=== PATIENT | female | born 1990 | race Caucasian/White ===

== ENCOUNTER 2017-09-15 22:31 | Emergency (ER) | payer OTHER ==
[2017-09-15 23:53] VITALS: BP 108/72; PULSE 82; TEMP 98.1; BMI 27.3
[2017-09-16 00:12] LABS: BASO % 1.3 % (0-2.0); EOS % 3.9 % (0-4.5); HEMATOCRIT 35.8 % (32.4-45.2); HEMOGLOBIN 11.6 GM/dL (10.7-15.3); LYMPH % 38.2 % (8-40); MCH 24.2 pg (25.7-33.7); MCHC 32.5 g/dl (32.0-36.0); MEAN CELL VOLUME 74.4 fl (80-96); MEAN PLT VOLUME 7.6 fl (7.5-11.1); MONO % 8.3 % (3.8-10.2); NEUT % 48.3 % (42.8-82.8); PLATELET COUNT 356 K/MM3 (134-434); RBC 4.81 M/mm3 (3.60-5.2); RDW 16.2 % (11.6-15.6); WHITE BLOOD COUNT 7.8 K/mm3 (4.0-10.0)
--- NOTE | 2017-09-16 01:20 | PDOC ---
History of Present Illness - General History Source: Patient Exam Limitations: No Limitations - History of Present Illness Initial Comments: 09/16/17 01:26 The patient is a 27 year old female, , 4 with past medical history of asthma and depression presents to the emergency department with left suprapubic pain. The patient reports she had vaginal bleeding since this morning with dark colored clots. The patient reports she went to her friends house a little later she started to have pain. The patient states she isnt on any care. Denies any dysuria, hematuria, frequency or urgency to urinate. Denies any diarrhea or constipation. Denies any fever, chills, nausea or vomiting. Denies chest pain, sob or wheezing. Allergies: anesthesia Social history: None reported <Tameka Queen - Last Filed: 09/16/17 01:37> <Arabella Paiz - Last Filed: 09/16/17 02:15> - General Chief Complaint: Pain Stated Complaint: VAGINAL BLEED Time Seen by Provider: 09/15/17 23:36 Past History <Tameka Queen - Last Filed: 09/16/17 01:37> - Past Medical History Anemia: No Asthma: Yes Cancer: No Cardiac Disorders: No CVA: No COPD: No CHF: No Dementia: No Diabetes: No GI Disorders: No Disorders: No HTN: No Hypercholesterolemia: No Kidney Stones: No Liver Disease: No Psychiatric Problems: Yes (ANXIETY, DEPRESSION, PANIC ATTACKS.) Seizures: No Thyroid Disease: No - Surgical History Abdominal Surgery: Yes - Reproductive History (#): 4 Para: 3 PID: No Therapeutic (s) & number: Yes Spontaneous : 1 - Immunization History Immunization Up to Date: No - Suicide/Smoking/Psychosocial Hx Smoking Status: No Smoking History: Unknown if ever smoked Have you smoked in the past 12 months: No Number of Cigarettes Smoked Daily: 5 Hx Alcohol Use: No Drug/Substance Use Hx: No Substance Use Type: None Hx Substance Use Treatment: Yes (marijuana) <Arabella Paiz - Last Filed: 09/16/17 02:15> - Past Medical History Allergies/Adverse Reactions: Allergies Allergy/AdvReac Type Severity Reaction Status Date / Time "anesthesia" Allergy Uncoded 09/15/17 23:46 Home Medications: Ambulatory Orders Albuterol Sulfate Inhaler - [Ventolin HFA Inhaler -] 1 puff PO PRN 11/25/15 Abd/GI Specific PMHX - Complaint Specific PMHX Hepatitis: No Pancreatitis: No <Arabella Paiz - Last Filed: 09/16/17 02:15> Review of Systems - Review of Systems Able to Perform ROS?: Yes Comments:: 09/16/17 01:26 CONSTITUTIONAL: Absent: fever, no chills, no fatigue EYES: Absent: visual changes ENT: Absent: ear pain, no sore throat CARDIOVASCULAR: Absent: chest pain, no palpitations RESPIRATORY: Absent: cough, no SOB GI: Absent: abdominal pain, no nausea, no vomiting, no constipation, no diarrhea GENITOURINARY: (+) left ovarian pain with vaginal bleeding Absent: dysuria, no frequency, no hematuria MUSKULOSKELETAL: Absent: back pain, no arthralgia, no myalgia SKIN: Absent: rash NEURO: Absent: headache <Tameka Queen - Last Filed: 09/16/17 01:37> *Physical Exam - Vital Signs Last Vital Signs Temp Pulse Resp BP Pulse Ox 98.1 F 82 18 108/72 98 09/15/17 23:46 09/15/17 23:46 09/15/17 23:46 09/15/17 23:46 09/15/17 23:46 - Physical Exam Comments: 09/16/17 01:26 GENERAL: Well-appearing, well-nourished. No apparent distress. HEENT: Normocephalic, atraumatic. PERRL, EOM intact. CARDIOVASCULAR: Normal S1, S2. Regular rate and rhythm. PULMONARY: Clear to auscultation bilaterally. ABDOMEN: Left adnexal pain with vaginal bleeding. Left sided pelvic pain. Protuberant belly. Soft, Pelvic exam: no polyps. Os closed no vesicules. No blood in the vaginal vault. No abcess Having her menstrual cycle EXTREMITIES: Normal ROM in all four extremities. No gross deformities. SKIN: Warm, dry. No rash NEUROLOGICAL: No focal neurological deficits. <Tameka Queen - Last Filed: 09/16/17 01:37> - Vital Signs Last Vital Signs Temp Pulse Resp BP Pulse Ox 98.1 F 82 18 108/72 98 09/15/17 23:46 09/15/17 23:46 09/15/17 23:46 09/15/17 23:46 09/15/17 23:46 <Arabella Paiz - Last Filed: 09/16/17 02:15> Moderate Sedation - Procedure Monitoring Vital Signs: Vital Signs Temp Pulse Resp BP Pulse Ox 98.1 F 82 18 108/72 98 09/15/17 23:46 09/15/17 23:46 09/15/17 23:46 09/15/17 23:46 09/15/17 23:46 <Tameka Queen - Last Filed: 09/16/17 01:37> - Procedure Monitoring Vital Signs: Vital Signs Temp Pulse Resp BP Pulse Ox 98.1 F 82 18 108/72 98 09/15/17 23:46 09/15/17 23:46 09/15/17 23:46 09/15/17 23:46 09/15/17 23:46 <Arabella Paiz - Last Filed: 09/16/17 02:15> ED Treatment Course - LABORATORY CBC & Chemistry Diagram: 09/15/17 23:48 - ADDITIONAL ORDERS Additional order review: Laboratory Results 09/15/17 23:48 Beta HCG, Quant < 1.0 09/15/17 23:48 RBC 4.81 MCV 74.4 L MCHC 32.5 RDW 16.2 H MPV 7.6 Neutrophils % 48.3 Lymphocytes % 38.2 Monocytes % 8.3 Eosinophils % 3.9 D Basophils % 1.3 D <Tameka Queen - Last Filed: 09/16/17 01:37> - LABORATORY CBC & Chemistry Diagram: 09/15/17 23:48 - ADDITIONAL ORDERS Additional order review: Laboratory Results 09/15/17 23:48 Beta HCG, Quant < 1.0 09/15/17 23:48 RBC 4.81 MCV 74.4 L MCHC 32.5 RDW 16.2 H MPV 7.6 Neutrophils % 48.3 Lymphocytes % 38.2 Monocytes % 8.3 Eosinophils % 3.9 D Basophils % 1.3 D <Arabella Paiz - Last Filed: 09/16/17 02:15> *DC/Admit/Observation/Transfer - Attestations Scribe Attestion: 09/16/17 01:27 Documentation prepared by Tameka Queen, acting as medical researcher for Arabella Paiz MD. <Tameka Queen - Last Filed: 09/16/17 01:37> <Arabella Paiz - Last Filed: 09/16/17 02:15> Diagnosis at time of Disposition: Vaginal bleeding, Vaginal discharge - Discharge Dispostion Disposition: HOME Condition at time of disposition: Stable - Patient Instructions Printed Discharge Instructions: DI for Pelvic Pain Additional Instructions: please follow up with your elevator mechanic apprentice
== END 2017-09-16 02:21 | disposition home or self-care (01) ==
LOC: JER 22:31
DX: N93.8 Other specified abnormal uterine and vaginal bleeding (principal)
CPT/HCPCS: 36415; 84702; 85025; 86850; 86900; 86901; 87389; 99282-25

== ENCOUNTER 2017-12-16 21:39 | Observation (INO) | payer OTHER ==
--- NOTE | 2017-12-16 21:50 | PDOC ---
Rapid Medical Evaluation Time Seen by Provider: 12/16/17 21:47 Medical Evaluation: Allergies Allergy/AdvReac Type Severity Reaction Status Date / Time "anesthesia" Allergy Uncoded 09/15/17 23:46 12/16/17 21:48 I have performed a brief in-person evaluation of this patient. The patient presents with a chief complaint of: Lower abdominal pain. dx with ovarian cyts at OSH 12/15 Pertinent physical exam findings: Tachycardic. left pelvic pain I have ordered the following: labs, urine The patient will proceed to the ED for further evaluation. Discharge Disposition - Diagnosis Pelvic pain - Referrals - Patient Instructions - Post Discharge Activity
[2017-12-16 22:24] LABS: BASO % 0.5 % (0-2.0); EOS % 1.1 % (0-4.5); HEMATOCRIT 35.6 % (32.4-45.2); LYMPH % 14.4 % (8-40); MCH 25.5 pg (25.7-33.7); MCHC 33.8 g/dl (32.0-36.0); MEAN CELL VOLUME 75.6 fl (80-96); MEAN PLT VOLUME 7.5 fl (7.5-11.1); MONO % 5.4 % (3.8-10.2); NEUT % 78.6 % (42.8-82.8); PLATELET COUNT 335 K/MM3 (134-434); RBC 4.71 M/mm3 (3.60-5.2); RDW 16.1 % (11.6-15.6); WHITE BLOOD COUNT 14.7 K/mm3 (4.0-10.0)
[2017-12-16 23:05] LABS: ALBUMIN 3.9 g/dl (3.4-5.0); ALK PHOS 76 U/L (45-117); ANION GAP 10 MMOL/L (8-16); BILIRUBIN,TOTAL 0.6 mg/dL (0.2-1.0); BLOOD UREA NITROGEN 11 mg/dL (7-18); CALCIUM 9.5 mg/dL (8.5-10.1); CHLORIDE 103 mmol/L (98-107); CO2 24 mmol/L (21-32); CREATININE 0.6 mg/dL (0.55-1.02); GLUCOSE,RANDOM 107 mg/dL (74-106); POTASSIUM 3.7 mmol/L (3.5-5.1); SGOT/AST 19 U/L (15-37); SGPT/ALT 19 U/L (12-78); SODIUM 137 mmol/L (136-145); TOT PROT 7.8 g/dl (6.4-8.2)
[2017-12-16] MEDS ORDERED: ONDANSETRON 4 MG/2 ML VIAL IVPUSH ONE (23:11)
[2017-12-16] MEDS ORDERED: FAMOTIDINE 20 MG/50 ML IVPB 20 MG/50 ML MG IVPB ONE ×2 (23:11→23:14)
[2017-12-16] MEDS ORDERED: SODIUM CHLORIDE 0.9% 1000 ML INFUS.BAG IV ONE (23:11)
[2017-12-16] MEDS ORDERED: ONDANSETRON 4 MG/2 ML VIAL ONE (23:14)
--- NOTE | 2017-12-16 23:26 | PDOC ---
Attending Attestation - [facility] HPI: 12/17/17 00:32 Patient is a 27 year old female with a significant past medical history of asthma and depression, bipolar schizophrenia, who presents to the ED with complaints of diffuse abdominal pain that began x1 month ago. Patient reports experiencing diffuse abdominal pain that she states has gradually increasing in intensity over time prompting her to come into the ED for further evaluation. When asked to identify the location of her abdominal pain, she reports it to be located in the Right upper and lower She reports experiencing associated symptoms of x1 episode of watery diarrhea, nausea, fever and chills. Patient reports going to [facility] earlier this week and was diagnosed with a right follicle on her ovary. Denies chest pain, sob. Denies nausea, vomiting. Denies coughing, vomiting. Denies contact with sick individuals, out of state travelling. Denies Allergies: Haldol, Anesthesia. Social history: Current smoker. No alcohol. No illicit drugs. Surgical history: None PMD: None - Physicial Exam PE: 12/17/17 02:10 GENERAL: Well-appearing, well-nourished. No apparent distress. HEENT: Normocephalic, atraumatic. PERRL, EOM intact. CARDIOVASCULAR: Normal S1, S2. Regular rate and rhythm. PULMONARY: Clear to auscultation bilaterally. ABDOMEN: Soft, non-distended, non-tender. EXTREMITIES: Normal ROM in all four extremities. No gross deformities. SKIN: Warm, dry. No rash NEUROLOGICAL: No focal neurological deficits. <Jose Pink - Last Filed: 12/17/17 02:10> - Resident Resident Name: Tahir Portillo - ED Attending Attestation I have performed the following: I have examined & evaluated the patient, The case was reviewed & discussed with the resident, I agree w/resident's findings & plan, Exceptions are as noted - Medical Decision Making 12/17/17 03:02 Pt treated and released <Ronald Nichols - Last Filed: 12/17/17 03:02>
--- NOTE | 2017-12-16 23:40 | PDOC ---
History of Present Illness - General Chief Complaint: Pain Stated Complaint: ABDOMINAL PAIN Time Seen by Provider: 12/16/17 21:47 History Source: Patient Exam Limitations: No Limitations - History of Present Illness Initial Comments: 12/16/17 23:35 The patient is a 27F with a PMH of bipolar schizophrenia who presents to the ER with abdominal pain. The patient describes constant, sharp, diffuse abdominal pain x 1 month that is associated with diarrhea which started today and mild nausea which also started today. She denies any vaginal bleeding or discharge, hematuria, hematochezia, and melena. She states that she's never had pain like this in the past. She denies sick contacts and recent abx use. Past History - Past Medical History Allergies/Adverse Reactions: Allergies Allergy/AdvReac Type Severity Reaction Status Date / Time haloperidol [From Haldol] Allergy Verified 12/16/17 21:50 "anesthesia" Allergy Uncoded 09/15/17 23:46 Home Medications: Ambulatory Orders Clozapine 100 mg PO BID 12/16/17 Glycopyrrolate [Robinul Forte -] 2 mg PO DAILY 12/16/17 Doxycycline Hyclate 100 mg PO BID #13 tablet 12/17/17 Anemia: No Asthma: Yes Cancer: No Cardiac Disorders: No CVA: No COPD: No CHF: No Dementia: No Diabetes: No GI Disorders: No Disorders: No HTN: No Hypercholesterolemia: No Kidney Stones: No Liver Disease: No Psychiatric Problems: Yes (SCHIZOPHRENIA,ANXIETY, DEPRESSION, PANIC ATTACKS.) Seizures: No Thyroid Disease: No - Surgical History Abdominal Surgery: Yes - Reproductive History (#): 4 Para: 3 PID: No Therapeutic (s) & number: Yes Spontaneous : 1 - Immunization History Immunization Up to Date: No - Suicide/Smoking/Psychosocial Hx Smoking Status: No Smoking History: Current every day smoker Have you smoked in the past 12 months: No Number of Cigarettes Smoked Daily: 1 Information on smoking cessation initiated: Yes 'Breaking Loose' booklet given: 12/16/17 Hx Alcohol Use: No Drug/Substance Use Hx: No Substance Use Type: None Hx Substance Use Treatment: Yes (marijuana) Review of Systems - Review of Systems Able to Perform ROS?: Yes Comments:: 12/16/17 23:40 GENERAL/CONSTITUTIONAL: Positive for fever and chills. No weakness. HEAD, EYES, EARS, NOSE AND THROAT: No change in vision. No ear pain or discharge. No sore throat. CARDIOVASCULAR: No chest pain, palpitations, or lightheadedness. RESPIRATORY: No cough, wheezing, shortness of breath, or hemoptysis. GASTROINTESTINAL: Positive for mild nausea, diarrhea, and abdominal pain. No vomiting or constipation. GENITOURINARY: No dysuria, frequency, hematuria, or change in urination. MUSCULOSKELETAL: No joint or muscle swelling or pain. No neck or back pain. SKIN: No rash or lesions. NEUROLOGIC: No headache, numbness, tingling, weakness, loss of consciousness, or change in strength/sensation. ENDOCRINE: No increased thirst. No abnormal weight change. HEMATOLOGIC/LYMPHATIC: No anemia, easy bleeding, or history of blood clots. ALLERGIC/IMMUNOLOGIC: No hives or skin allergy. Is the patient limited Bengali proficient: No *Physical Exam - Vital Signs Last Vital Signs Temp Pulse Resp BP Pulse Ox 97.7 F 144 H 18 115/66 99 12/16/17 21:46 12/16/17 21:46 12/16/17 21:46 12/16/17 21:46 12/16/17 21:46 - Physical Exam Comments: 12/16/17 23:42 GENERAL: Well developed, well nourished. Awake and alert. No acute distress. HEENT: Normocephalic, atraumatic. Hearing grossly normal. Moist mucous membranes. PERRLA, EOMI. No conjunctival pallor. Sclera are non-icteric. NECK: Supple. Full ROM. No JVD. CARDIOVASCULAR: Regular rate and rhythm. No murmurs, rubs, or gallops. Distal pulses are 2+ and symmetric. PULMONARY: No evidence of respiratory distress. Lungs clear to auscultation bilaterally. No wheezing, rales or rhonchi. ABDOMINAL: Soft. Mild tenderness to deep palpation diffusely throughout abdomen. Non-distended. No rebound or guarding. GENITOURINARY: No CVA tenderness bilaterally. PELVIC: Normal external genitalia. White discharge noted in vaginal canal. CMT noted. R adnexal tenderness. MUSCULOSKELETAL: Normal range of motion at all joints. No bony deformities or tenderness. EXTREMITIES: No cyanosis. No clubbing. No edema. No calf tenderness or swelling. SKIN: Warm and dry. Normal capillary refill. No rashes. No jaundice. NEUROLOGICAL: Alert, awake, appropriate. Cranial nerves 2-12 intact. Normal speech. Gait is normal without ataxia. PSYCHIATRIC: Cooperative. Good eye contact. Appropriate mood and affect. ED Treatment Course - LABORATORY CBC & Chemistry Diagram: 12/16/17 22:11 12/16/17 22:11 - ADDITIONAL ORDERS Additional order review: Laboratory Results 12/16/17 22:11 Sodium 137 Potassium 3.7 Chloride 103 Carbon Dioxide 24 Anion Gap 10 BUN 11 Creatinine 0.6 Creat Clearance w eGFR > 60 Random Glucose 107 H Calcium 9.5 Total Bilirubin 0.6 AST 19 ALT 19 Alkaline Phosphatase 76 Total Protein 7.8 Albumin 3.9 12/16/17 22:11 RBC 4.71 MCV 75.6 L MCHC 33.8 RDW 16.1 H MPV 7.5 Neutrophils % 78.6 D Lymphocytes % 14.4 D Monocytes % 5.4 Eosinophils % 1.1 Basophils % 0.5 - RADIOLOGY Radiology Studies Ordered: Category Date Time Status ABDOMEN & PELVIS CT W/O CONTR [CT] Stat CT Scan 12/16/17 22:42 Ordered - Medications Given in the ED: ED Medications Discontinued Medications Generic Name Dose Route Start Last Admin Trade Name Freq PRN Reason Stop Dose Admin Ondansetron HCl 4 mg 12/16/17 23:11 12/16/17 23:21 Zofran Injection IVPUSH 12/16/17 23:12 4 mg ONCE ONE Administration Sodium Chloride 1,000 ml 12/16/17 23:11 12/16/17 23:21 Normal Saline - IV 12/16/17 23:12 1,000 ml ONCE ONE Administration Medical Decision Making - Medical Decision Making 12/16/17 23:42 The patient is a 27F with a PMH of bipolar schizophrenia who presents to the ER with abdominal pain. She was seen at a nearby hospital last night and diagnosed with ovarian follicles on US. Of note, she is tachycardic to 144 in our ER. EKG shows sinus tach. Will hydrate and order imaging of her abdomen as she has a white count as well. Pending labs and imaging and UA. 12/17/17 01:26 CTAP negative for acute pathology. Pending UA. Pt states she feels better but does not want to get give us a urine sample. 12/17/17 02:13 Pt refusing to give UA. I have instructed her that it is important that we send a urinalysis. Pt went to the bathroom. Pending UA. 12/17/17 02:55 Pt refused to give urine. She now has a low grade fever and is still tachy to 120's. Will give 1 more liter of fluids and inform her that she needs a pelvic exam to r/o PID although she initially denied discharge on history. 12/17/17 04:07 UA negative for UTI. Will perform pelvic exam. 12/17/17 04:38 Pelvic exam shows CMT and R adnexal tenderness. Will treat for PID and ensure PCP or strict ED return precautions. 12/17/17 05:21 Pt maintained tachycardia w/ low grade fever. Treating PID. Pt endorsed to Dr. Goyal for admission. *DC/Admit/Observation/Transfer Diagnosis at time of Disposition: PID (acute pelvic inflammatory disease) Abdominal pain Qualifiers: Abdominal location: generalized Qualified Code(s): R10.84 - Generalized abdominal pain - Discharge Dispostion Condition at time of disposition: Guarded Decision to Admit order: Yes - Prescriptions Prescriptions: Doxycycline Hyclate 100 mg PO BID #13 tablet - Referrals Referrals: Emil Singh MD [Staff Physician] - - Patient Instructions Printed Discharge Instructions: DI for Pelvic Inflammatory Disease Additional Instructions: Please follow up with your primary care physician in 2-3 days. Please return to the ER if you start developing worsening abdominal pain, fevers, chills, nausea , vomiting, or vaginal bleeding or discharge. Please take ALL of your prescribed antibiotic. Please return to the ER if you have any signs or symptoms of chest pain, shortness of breath, uncontrollable fever, chills, nausea, vomiting, numbness, tingling, or weakness in any part of your body, changes in vision, or slurred speech. Please return to the ER if symptoms persist, worsen, or new symptoms arise. - Post Discharge Activity
[2017-12-17 03:11] LABS: URINE APPEARANCE SLCLOUDY; URINE BILIRUBIN NEGATIVE (<2.0 mg/dL); URINE COLOR AMBER; URINE GLUCOSE (UA) NEGATIVE (NEGATIVE); URINE KETONE TRACE (NEGATIVE); URINE LEUK ESTERASE NEGATIVE (NEGATIVE); URINE NITRITE NEGATIVE (NEGATIVE); URINE PROTEIN NEGATIVE (NEGATIVE); URINE UROBILINOGEN NEGATIVE mg/dL (0.2-1.0)
[2017-12-17 03:12] LABS: HCG,QUALITATIVE URINE Negative
[2017-12-17 03:16] LABS: EPI CELLS RARE /HPF (FEW); URINE BACTERIA RARE /hpf (NONE SEEN); URINE MUCUS RARE
[2017-12-17] MEDS ORDERED: DOXYCYCLINE HYCLATE 100 MG CAPSULE PO ONE ×2 (04:37→04:46)
[2017-12-17] MEDS ORDERED: SODIUM CHLORIDE 0.9% 1000 ML INFUS.BAG IV ONE (04:42)
[2017-12-17] MEDS ORDERED: ACETAMINOPHEN 1000 MG/100 ML VIAL (NON FORMULARY) IVPB ONE (04:44)
[2017-12-17] MEDS ORDERED: ACETAMINOPHEN INJECTION 100 ML IVPB ONE (04:46)
--- NOTE | 2017-12-17 05:49 | PN ---
Teaching Attending Note Name of Resident: Domitila Galvin ATTENDING PHYSICIAN STATEMENT I saw and evaluated the patient. I reviewed the resident's note and discussed the case with the resident. I agree with the resident's findings and plan as documented. SUBJECTIVE: Patient is a 27 year old woman with a significant past medical history of asthma , tobacco use, depression, anxiety, panic attacks and bipolar schizophrenia, who presents to the ER with complaints of diffuse abdominal pain that began one month ago. Patient reports experiencing diffuse abdominal pain that she states has gradually increasing in intensity over time prompting her to come into the ER for further evaluation. Patient reports pain is located in the Right upper and lower quadrants. She reports experiencing associated symptoms of diarrhea, nausea, fever and chills. Patient was evaluated here for vaginal bleeding and suprapubic pain in Aug, 2017 and was noted recently to have an ovarian cyst and ovarian follicules. Denies suicidal or homicidal ideation. Refused to tell us her LMP or sexual activity history. OBJECTIVE: Alert Vital Signs Period Temp Pulse Resp BP Sys/Qu[place]illa Pulse Ox Last 24 Hr 97.7 F-100.3 F 122-144 18-18 109-115/61-66 99-100 HEENT: No Jaundice, eye redness or discharge, PERRLA, EOMI. Normocephalic, atraumatic. External ears are normal and hearing is grossly intact. No nasal discharge. Neck: Supple, nontender. No palpable adenopathy or thyromegaly. No JVD Chest: Good effort. Clear to auscultation and percussion. Heart: Regular. No S3, rub or murmur Abdomen: Not distended, soft, nontender and no HSM. No rebound or guarding. Normoactive bowel sounds. Ext: Peripheral pulses intact. No leg edema. Skin: Warm and dry. No petechiae, rash or ecchymosis. Neuro: Alert. Oriented x3. CN 2-12 grossly intact. Sensation grossly intact in all four extremities and DTR are symmetric. CPO - The ER physician did a pelvic exam and reported cervical motion tenderness and right adnexal tenderness. Home Medications Medication Instructions Recorded Clozapine 100 mg PO BID 12/16/17 Glycopyrrolate [Robinul Forte -] 2 mg PO DAILY 12/16/17 Doxycycline Hyclate 100 mg PO BID #13 tablet 12/17/17 Abnormal Lab Results 12/16/17 12/16/17 12/17/17 22:11 22:11 03:01 WBC 14.7 H MCV 75.6 L MCH 25.5 L RDW 16.1 H Absolute Neuts (auto) 11.6 H Random Glucose 107 H Urine Ketones Trace H Urine Blood 1+ H ASSESSMENT AND PLAN: 1. Abdominal pain - On further inquiry, she had only one episode of loose BM. No significant abnormality on preliminary reading of her abdominal and pelvic CT. Studies being done for gonorrhea, chlamydia and trichomoniasis. Sepsis workup done and will be treated empirically for PID with Cefoxitin 2 gm q 6 hours and Doxycycline 100 mg po q 12 hours. Consult CPO. Needs work up to rule out endometriosis. Unexplained low MCV will be monitored. 2. Tobacco Use We will provide patient all the necessary assistance to facilitate smoking cessation and prescribe Nicotine patch. 3. Obesity - Will provide patient all the necessary assistance, counseling and positive reinforcement to facilitate weight loss. Consult commercial litigation paralegal. 4. Psychiatric problems - Will consult psychiatry and continue clonazepine. 5. DVT prophylaxis - Lovenox 40 mg SQ q 24 hours. 6. Advance directives - Full code
--- NOTE | 2017-12-17 06:19 | HP ---
CHIEF COMPLAINT:abdominal pain PCP: HISTORY OF PRESENT ILLNESS: Patient is a 27 year old female with past medical history of bipolar d/o, schizophrenia, and asthma, presented with diffuse abdominal pain for 1 month. Patient reported gradually worsening abdominal pain that started one month ago which prompted her to come to the ED. Otherwise, she denies diarrhea, constipation, nausea, vomiting, fever, chills, dysuria, hematuria, vaginal bleeding. Patient was seen on 08/2017 complaining of suprapubic pain and vaginal bleeding. She was diagnosed to have ovarian cyst and was asked to follow -up with nutrition services associate but never did. ER course was notable for: (1)Temp 100.3 HR 122 (2)WBC 14.7 (3) Recent Travel:denies any recent travel PAST MEDICAL HISTORY: Bipolar d/o Schizophrenia Asthma PAST SURGICAL HISTORY: C-sections x4 Social History: Smokin/2 PPD Alcohol:occasional EtOH drinker Drugs: marijuana Family History: Allergies haloperidol [From Haldol] Allergy (Verified 12/16/17 21:50) "anesthesia" Allergy (Uncoded 09/15/17 23:46) HOME MEDICATIONS: Home Medications Medication Instructions Recorded Clozapine 100 mg PO BID 12/16/17 Glycopyrrolate [Robinul Forte -] 2 mg PO DAILY 12/16/17 Doxycycline Hyclate 100 mg PO BID #13 tablet 12/17/17 REVIEW OF SYSTEMS CONSTITUTIONAL: Absent: fever, chills, diaphoresis, generalized weakness, malaise, loss of appetite, weight change HEENT: Absent: rhinorrhea, nasal congestion, throat pain, throat swelling, difficulty swallowing, mouth swelling, ear pain, eye pain, visual changes CARDIOVASCULAR: Absent: chest pain, syncope, palpitations, irregular heart rate, lightheadedness , peripheral edema RESPIRATORY: Absent: cough, shortness of breath, dyspnea with exertion, orthopnea, wheezing, stridor, hemoptysis GASTROINTESTINAL:abdominal pain Absent: abdominal distension, nausea, vomiting, diarrhea, constipation, melena, hematochezia GENITOURINARY: Absent: dysuria, frequency, urgency, hesitancy, hematuria, flank pain, genital pain MUSCULOSKELETAL: Absent: myalgia, arthralgia, joint swelling, back pain, neck pain SKIN: Absent: rash, itching, pallor HEMATOLOGIC/IMMUNOLOGIC: Absent: easy bleeding, easy bruising, lymphadenopathy, frequent infections ENDOCRINE: Absent: unexplained weight gain, unexplained weight loss, heat intolerance, cold intolerance NEUROLOGIC: Absent: headache, focal weakness or paresthesias, dizziness, unsteady gait, seizure, mental status changes, bladder or bowel incontinence PSYCHIATRIC: Absent: anxiety, depression, suicidal or homicidal ideation, hallucinations. PHYSICAL EXAMINATION Vital Signs - 24 hr 12/16/17 12/17/17 21:46 02:43 Temperature 97.7 F 100.3 F H Pulse Rate 144 H Pulse Rate [ 122 H Apical] Respiratory 18 18 Rate Blood Pressure 115/66 Blood Pressure 109/61 [Right Arm] O2 Sat by Pulse 99 100 Oximetry (%) GENERAL: Awake, alert, and fully oriented, in no acute distress. HEAD: Normal with no signs of trauma. EYES: PERRLA, EOMI, sclera anicteric, conjunctiva clear. No lid lag. EARS, NOSE, THROAT: Ears normal, nares patent, oropharynx clear without exudates. Moist mucous membranes. NECK: Normal range of motion, supple without lymphadenopathy, JVD, or masses. LUNGS: Breath sounds equal, clear to auscultation bilaterally. HEART: Regular rate and rhythm, normal S1 and S2 without murmur, rub or gallop. ABDOMEN: Soft, mild tenderness on all quadrants, not distended, normoactive bowel sounds. MUSCULOSKELETAL: Normal range of motion at all joints. No bony deformities or tenderness. No CVA tenderness. UPPER EXTREMITIES: 2+ pulses, warm, well-perfused. No cyanosis. No clubbing. No peripheral edema. LOWER EXTREMITIES: 2+ pulses, warm, well-perfused. No calf tenderness. No peripheral edema. PELVIC: Normal external genitalia. White discharge noted in vaginal canal. CMT noted. R adnexal tenderness NEUROLOGICAL: Cranial nerves II-XII intact. Normal speech. Normal gait. PSYCHIATRIC: Cooperative. Good eye contact. Appropriate mood and affect. SKIN: Warm, dry, normal turgor, no rashes or lesions noted, normal capillary refill. Laboratory Results - last 24 hr 12/16/17 12/16/17 12/16/17 22:11 22:11 22:11 WBC 14.7 H RBC 4.71 Hgb 12.0 Hct 35.6 MCV 75.6 L MCH 25.5 L MCHC 33.8 RDW 16.1 H Plt Count 335 MPV 7.5 Absolute Neuts (auto) 11.6 H Neutrophils % 78.6 D Lymphocytes % 14.4 D Monocytes % 5.4 Eosinophils % 1.1 Basophils % 0.5 Nucleated RBC % 0 Sodium 137 Potassium 3.7 Chloride 103 Carbon Dioxide 24 Anion Gap 10 BUN 11 Creatinine 0.6 Creat Clearance w eGFR > 60 Random Glucose 107 H Calcium 9.5 Total Bilirubin 0.6 AST 19 ALT 19 Alkaline Phosphatase 76 Total Protein 7.8 Albumin 3.9 Serum , Qual Negative Urine Color Urine Appearance Urine pH Ur Specific [place] Urine Protein Urine Glucose (UA) Urine Ketones Urine Blood Urine Nitrite Urine Bilirubin Urine Urobilinogen Ur Leukocyte Esterase Urine WBC (Auto) Urine RBC (Auto) Ur Epithelial Cells Urine Bacteria Urine Mucus Urine HCG, Qual 12/17/17 03:01 WBC RBC Hgb Hct MCV MCH MCHC RDW Plt Count MPV Absolute Neuts (auto) Neutrophils % Lymphocytes % Monocytes % Eosinophils % Basophils % Nucleated RBC % Sodium Potassium Chloride Carbon Dioxide Anion Gap BUN Creatinine Creat Clearance w eGFR Random Glucose Calcium Total Bilirubin AST ALT Alkaline Phosphatase Total Protein Albumin Serum , Qual Urine Color Peggy Urine Appearance Slcloudy Urine pH 5.0 Ur Specific [place] 1.015 Urine Protein Negative Urine Glucose (UA) Negative Urine Ketones Trace H Urine Blood 1+ H Urine Nitrite Negative Urine Bilirubin Negative Urine Urobilinogen Negative Ur Leukocyte Esterase Negative Urine WBC (Auto) 1 Urine RBC (Auto) 1 Ur Epithelial Cells Rare Urine Bacteria Rare Urine Mucus Rare Urine HCG, Qual Negative ASSESSMENT/PLAN: Patient is a 27 year old female with past medical history of bipolar d/o, schizophrenia, and asthma, presented with diffuse abdominal pain for 1 month. #Pelvic inflammatory disease -Started on Cefoxitin 2g IV q6 and Doxycycline 100mg PO q12h -Dr. Jonas consult appreciated -Dr. Steiner consult appreciated. #Bipolar d/o, Schizophrenia -patient on Clozapine and Glycopyrrolate -Dr. Wilks consult appreciated. #FEN -not on any standing fluids -encourage increase oral fluid intake -electrolytes wnl, routine bmp monitoring -regular diet #Prophylaxis -Enoxaparin 40 mg sq daily #Disposition -admit to obs -full code Visit type - Emergency Visit Emergency Visit: Yes ED Registration Date: 12/17/17 Care time: The patient presented to the Emergency Department on the above date and was hospitalized for further evaluation of their emergent condition. - New Patient This patient is new to me today: Yes Date on this admission: 12/17/17 - Critical Care Critical Care patient: No Hospitalist Screening - Colonoscopy Questionnaire Colonoscopy Questionnaire: Colonoscopy Questionnaire - Patient: 50 - 75 years old and never had a screening colonoscopy: Unknown History of colon or rectal polyps, or CA: Unknown History of IBD, Crohn's disease or UC: Unknown History of abdominal radiation therapy as a child: Unknown - Relative: 1 with colon or rectal CA, or polyps at age 60 or younger: Unknown Colon or rectal CA diagnosed at age 45 or younger: Unknown Multiple relatives with colon or rectal CA: Unknown - Outcome: Screening Result: Negative Screen
[2017-12-17] MEDS ORDERED: HEPARIN NA (PORCINE) 5,000 UNITS/ML 1ML VIAL SQ SCH (06:45)
[2017-12-17] MEDS ORDERED: PT OWN MED DRAWER 7, Y5N ONE ×4 (10:04→21:09)
[2017-12-17 11:03] LABS: BASO % 0.4 % (0-2.0); EOS % 0.8 % (0-4.5); HEMATOCRIT 32.3 % (32.4-45.2); HEMOGLOBIN 10.7 GM/dL (10.7-15.3); LYMPH % 16.4 % (8-40); MCH 25.2 pg (25.7-33.7); MCHC 33.1 g/dl (32.0-36.0); MEAN CELL VOLUME 76.2 fl (80-96); MEAN PLT VOLUME 7.5 fl (7.5-11.1); MONO % 6.9 % (3.8-10.2); NEUT % 75.5 % (42.8-82.8); PLATELET COUNT 292 K/MM3 (134-434); RBC 4.24 M/mm3 (3.60-5.2); RDW 15.9 % (11.6-15.6); WHITE BLOOD COUNT 11.9 K/mm3 (4.0-10.0)
[2017-12-17] MEDS: cloZAPine 100 MG TABLET PO SCH ×2 (11:06→21:41)
[2017-12-17] MEDS: ENOXAPARIN NA (PORCINE) 40 MG/0.4 ML DISP.SYRIN SQ SCH ×2 (11:06→11:09)
--- NOTE | 2017-12-17 11:07 | CON.PSY ---
Psychiatry Consult Chief Complaint: Patient with a History of Schizophrenia chronic undiff type , on Clozaril, being treated at [facility]. Symptoms: reports: Disorganized/Disruptive Thoughts, Delusions - Previous Psychiatric Treatment Outpatient: Less than 6 mos ago Inpatient: 2 or more prior admissions - Previous Substance Abuse Treatment Outpatient: None Inpatient: None - Reason for Previous Treatment Reason for Previous Treatment: Psychotic Episode - Current Medications Current Medications: Active Medications Clozapine (Clozaril -) 100 mg PO BID XENA Doxycycline Hyclate (Vibramycin -) 100 mg PO BID@1000,1800 XENA Enoxaparin Sodium (Lovenox -) 40 mg SQ DAILY XENA Cefoxitin Sodium 2 gm/ (Dextrose) 100 mls @ 200 mls/hr IVPB Q6H-IV XENA; Protocol Cefoxitin Sodium 2 gm/ (Dextrose) 100 mls @ 200 mls/hr IVPB Q6H-IV XENA; Protocol Stop: 12/18/17 09:29 - Allergies Allergies: Allergies Allergy/AdvReac Type Severity Reaction Status Date / Time haloperidol [From Haldol] Allergy Verified 12/16/17 21:50 "anesthesia" Allergy Uncoded 09/15/17 23:46 - Current Living Status Usual Living Arrangement: Alone - Current Mental Status Evaluation Appearance: Disheveled Attitude: Cooperative - Affect Affect: Constrictive Appropriateness: Appropriate to Content - Mood Mood: Irritable - Speech/Language Expressive: Coherent - Psychomotor Activity Psychomotor Activity: Hyperactive - Thought Process Thought Process: Loosening of Associations - Thought Content Hallucinations: Absent Delusions: Present Type: Persectory - Self Perception Self Perception: No Impairment - Cognition Attention: Alert Memory, Immediate Recall: Intact Memory, Short Term: 3/3 Memory, Remote with Promptin/3 - Concentration Serial Sevens Intact: Yes Simple Calculations Intact: Yes - Abstraction Proverb Interpretation: Impaired Judgement: Moderately Impaired - Insight Insight: Impaired - Impulse Control Impulse Control: Good Control - Suicidal Ideation Suicidal Ideation: No - Homicidal Ideation Homicidal Ideation: No Assessment/Plan 1) continue with Clozaril 100mg po bid. 2) Discharge when medically stable. 3) follow up at [facility][ital.
--- NOTE | 2017-12-17 11:08 | PN ---
Physical Exam: SUBJECTIVE: Patient is a 27 y/o female with history of bipolar disease/schizophrenia and asthma who is here for sepsis 2/2 to possible PID vs gastritis. Patient reports some nausea and diarrhea. OBJECTIVE: Vital Signs Temperature 98.6 F 12/17/17 06:29 Pulse Rate 107 H 12/17/17 06:29 Respiratory Rate 18 12/17/17 06:29 Blood Pressure 121/69 12/17/17 06:29 O2 Sat by Pulse Oximetry (%) 99 12/17/17 06:29 GENERAL: The patient is awake, alert, and fully oriented, in no acute distress. EYES: PERRL, extraocular movements intact ENT: Ears normal, nares patent, oropharynx clear without exudates LUNGS: Breath sounds equal, clear to auscultation bilaterally HEART: Regular rate and rhythm, ABDOMEN: Soft, tender to mid epigastic palpation, nondistended, normoactive bowel sounds EXTREMITIES: 2+ pulses, warm, well-perfused, no edema. PSYCH: Normal mood, normal affect. SKIN: Warm, dry, normal turgor, no rashes or lesions noted CBC, BMP 12/16/17 22:11 12/16/17 22:11 Urine Test Results Urine Color Peggy 12/17/17 03:01 Urine Appearance Slcloudy 12/17/17 03:01 Urine pH 5.0 (5.0-8.0) 12/17/17 03:01 Ur Specific [place] 1.015 (1.001-1.035) 12/17/17 03:01 Urine Protein Negative (NEGATIVE) 12/17/17 03:01 Urine Glucose (UA) Negative (NEGATIVE) 12/17/17 03:01 Urine Ketones Trace (NEGATIVE) H 12/17/17 03:01 Urine Blood 1+ (NEGATIVE) H 12/17/17 03:01 Urine Nitrite Negative (NEGATIVE) 12/17/17 03:01 Urine Bilirubin Negative (<2.0 mg/dL) 12/17/17 03:01 Ur Leukocyte Esterase Negative (NEGATIVE) 12/17/17 03:01 Ur Epithelial Cells Rare /HPF (FEW) 12/17/17 03:01 Urine Bacteria Rare /hpf (NONE SEEN) 12/17/17 03:01 Urine Mucus Rare 12/17/17 03:01 Active Medications Clozapine (Clozaril -) 100 mg PO BID XENA Doxycycline Hyclate (Vibramycin -) 100 mg PO BID@1000,1800 XENA Enoxaparin Sodium (Lovenox -) 40 mg SQ DAILY XENA Cefoxitin Sodium 2 gm/ (Dextrose) 100 mls @ 200 mls/hr IVPB Q6H-IV XENA; Protocol Cefoxitin Sodium 2 gm/ (Dextrose) 100 mls @ 200 mls/hr IVPB Q6H-IV XENA; Protocol Stop: 12/18/17 09:29 ASSESSMENT/PLAN: Patient is a 27 y/o female with history of bipolar disease/schizophrenia and asthma who is here for sepsis 2/2 to possible PID vs gastritis. #PID - past history of ovarian cyst, never followed up with gynecology - + CMT tenderness on examination - Cefoxitin 2gm IV Q6 - Doxycycline 100 mg po q12h - f/u annabella Glover - f/u Dr. Steiner - f/u HIV, ghonorrhea, chlamydia #bipolar/schizophrenia - continue home meds Dispo: Visit type - Emergency Visit Emergency Visit: No - New Patient This patient is new to me today: Yes Date on this admission: 12/17/17 - Critical Care Critical Care patient: No
[2017-12-17] MEDS: CEFOXITIN SODIUM 2 GM in DEXTROSE 5%-WATER - 100 ML IVPB SCH ×3 (11:34→22:26)
[2017-12-17] MEDS: DOXYCYCLINE HYCLATE 100 MG CAPSULE PO SCH ×2 (11:34→18:00)
--- NOTE | 2017-12-17 12:26 | PN ---
Progress Note (short form) - Note Progress Note: ID consult dictated imp/reccd chronic lower abdominal pain-low grade fever r/o PID ct scan still pending agree with cultures cefoxitin/doxycycline gc/chlamydia NAAT Problem List - Problems (1) Abdominal pain Code(s): R10.9 - UNSPECIFIED ABDOMINAL PAIN Qualifiers: Abdominal location: generalized Qualified Code(s): R10.84 - Generalized abdominal pain (2) PID (acute pelvic inflammatory disease) Code(s): N73.0 - ACUTE PARAMETRITIS AND PELVIC CELLULITIS
[2017-12-17 12:46] VITALS: BMI 30.7
--- NOTE | 2017-12-17 13:46 | CONS ---
DATE OF CONSULTATION: 12/17/2017 REQUESTING PHYSICIAN: The hospitalist service. HISTORY OF PRESENT ILLNESS: This is a 27-year-old woman with a history of bipolar disorder and schizophrenia. She was recently hospitalization for a psychiatric admission from October 30 to December 10, 2017. She reports that she developed abdominal pain during that time. She was sexually active prior to admission there and reports she has not been sexually active since discharge December 10, 2017. She has had worsening abdominal pain and came to the emergency room. She has had no vomiting. She had a normal bowel movement yesterday. She has been able to eat and as stated she denies any recent sexual activity since her discharge. In the emergency room she had a low-grade temperature of 100.3 and tachycardia. Her white count was 14.7. She had a pelvic examination done and was noted to have some cervical motion tenderness and right adnexal tenderness. Concerns for PID were raised and she had a CAT scan of her abdomen and pelvis the results of which are pending and she was admitted for further evaluation. She is currently resting comfortably without any complaint. PAST MEDICAL HISTORY: Is notable for bipolar disorder, schizophrenia, and asthma. PAST SURGICAL HISTORY: She has had 4 sections; the last 2 years ago. Her eldest child is 8. SOCIAL HISTORY: She smokes half a pack per day. She uses alcohol occasionally and marijuana occasionally. ALLERGIES: She is allergic to HALDOL and ANESTHESIA MEDICATIONS. MEDICATIONS: Her medications at home include: 1. Clozapine. 2. Glycopyrrolate. REVIEW OF SYSTEMS: Is notable for lower abdominal pain. She has no upper abdominal pain. She has no nausea. She has not been vomiting. She has no diarrhea and she has not vomited or passed any blood in her stools. She denies to me any vaginal discharge. PHYSICAL EXAMINATION: General: She is in no acute distress. She is a young woman. Vital Signs: T-Max 100.3, current temperature 97.5, pulse 89, blood pressure 108/64, respiratory rate is 18, and she weighs 71 kg. HEENT: She is normocephalic. Eyes are anicteric. NECK: Supple. LUNGS: Clear to auscultation. HEART: Regular rate and rhythm. ABDOMEN: Soft. She has mild bilateral lower quadrant tenderness to palpation. EXTREMITIES: Without edema. LABORATORY DATA: White count on admission was 14.7, today is 11.9, hemoglobin 10.7, and platelets at 292. BUN and creatinine are 11 and 0.6. LFTs are normal. Lipase is 65. Serum is negative. Urinalysis has 1 white cell. CAT scan findings are pending. In summary, this is a young lady with: 1. Chronic lower abdominal pain, low grade fever, and possible PID, CAT scan is still pending. I called Radiology to expedite the reading. I would agree with cultures and continue cefoxitin and doxycycline. Chlamydia labs have been sent and awaiting evaluation by Gynecology. 2. History of schizophrenia and bipolar disorder. She has been seen and evaluated by Psychiatry. DOMI PARSON M.D. JENN/[id number]
[2017-12-17] MEDS: PANTOPRAZOLE 40 MG TABLET (FP) PO SCH (14:27)
--- NOTE | 2017-12-17 15:19 | PN ---
Teaching Attending Note Name of Resident: Beverly Crowell ATTENDING PHYSICIAN STATEMENT I saw and evaluated the patient. I reviewed the resident's note and discussed the case with the resident. I agree with the resident's findings and plan as documented. SUBJECTIVE: poor historian. denies STDs, denies sexual history despite admitting to resident having sex with her boyfriend 2 weeks ago. Cont to have lower abd pain, denies discharge form vagina OBJECTIVE: NAD CV : RRR Lungs: CATB Ext: no edema Abd: soft, ND, TTP in LLQ, RUQ, and supra pubic area. no rebound tenderness or guarding Pelvic exam done by night team . ASSESSMENT AND PLAN: 27 y/o lady with h/o Asthma, depression , anxiety, bipolar and 4 C sections who presented with abd pain. 1- Possible PID : especially with cervical wall tenderness and cervical discharge. no UTI on UA. CT scan with L ovarian cyst on my review. will wait for official report . - follow GC/C in urine - [facility] [employer] ARTICLES eval - follow WBC - cont cefoxitine and doxy 2- h/o ANxiety , depression and bipolar: cont clozapine 3- Asthma : not active dispo : HLOC
--- NOTE | 2017-12-17 20:14 | EKG ---
Test Reason : Blood Pressure : / mmHG Vent. Rate : 133 BPM Atrial Rate : 133 BPM P-R Int : 150 ms QRS Dur : 098 ms QT Int : 294 ms P-R-T Axes : 058 026 033 degrees QTc Int : 437 ms SINUS TACHYCARDIA LOW VOLTAGE QRS INCOMPLETE RIGHT BUNDLE BRANCH BLOCK T WAVE ABNORMALITY, CONSIDER ANTERIOR ISCHEMIA ABNORMAL ECG NO PREVIOUS ECGS AVAILABLE Confirmed by CORRINA CAREY MD ([id number]) on 12/17/2017 8:14:25 PM Referred By: Confirmed By:CORRINA CAREY MD
[2017-12-17] MEDS ORDERED: SODIUM CHLORIDE 500 ML IV SCH (21:30)
[2017-12-17] MEDS ORDERED: GLYCOPYRROLATE 1 MG TABLET PO SCH (22:00)
[2017-12-18] MEDS: CEFOXITIN SODIUM 2 GM in DEXTROSE 5%-WATER - 100 ML IVPB SCH ×2 (03:08→09:51)
[2017-12-18] MEDS ORDERED: SODIUM CHLORIDE 1,000 ML IV SCH (06:19)
[2017-12-18 09:06] LABS: HEMOGLOBIN 11.4 GM/dL (10.7-15.3); MCH 25.7 pg (25.7-33.7); MCHC 33.5 g/dl (32.0-36.0); MEAN CELL VOLUME 76.6 fl (80-96); MEAN PLT VOLUME 7.5 fl (7.5-11.1); PLATELET COUNT 265 K/MM3 (134-434); RBC 4.44 M/mm3 (3.60-5.2); RDW 16.3 % (11.6-15.6); WHITE BLOOD COUNT 5.6 K/mm3 (4.0-10.0)
[2017-12-18 09:40] LABS: CHLORIDE 109 mmol/L (98-107); POTASSIUM 4.1 mmol/L (3.5-5.1); SODIUM 141 mmol/L (136-145)
[2017-12-18] MEDS ORDERED: PT OWN MED DRAWER 7, Y5N ONE ×3 (09:41→17:01)
[2017-12-18] MEDS: ENOXAPARIN NA (PORCINE) 40 MG/0.4 ML DISP.SYRIN SQ SCH (09:51)
[2017-12-18] MEDS: DOXYCYCLINE HYCLATE 100 MG CAPSULE PO SCH ×2 (09:52→17:02)
[2017-12-18] MEDS: cloZAPine 100 MG TABLET PO SCH (09:52)
[2017-12-18] MEDS: PANTOPRAZOLE 40 MG TABLET (FP) PO SCH (09:52)
--- NOTE | 2017-12-18 10:13 | PN ---
Physical Exam: SUBJECTIVE: Patient is a 27 y/o female with history of bipolar disease/schizophrenia and asthma who is here for sepsis 2/2 to possible PID vs gastritis. Patient had low BP over night, given a bolus of fluid. Patient had no acute complaints. OBJECTIVE: Vital Signs Temperature 98.9 F 12/18/17 09:56 Pulse Rate 104 H 12/18/17 09:56 Respiratory Rate 18 12/18/17 09:56 Blood Pressure 120/75 12/18/17 09:56 O2 Sat by Pulse Oximetry (%) 99 12/17/17 12:47 GENERAL: The patient is awake, alert, and fully oriented, in no acute distress. EYES: PERRL, extraocular movements intact ENT: Ears normal, nares patent, oropharynx clear without exudates LUNGS: Breath sounds equal, clear to auscultation bilaterally HEART: Regular rate and rhythm, ABDOMEN: Soft, tender to mid epigastic palpation, nondistended, normoactive bowel sounds EXTREMITIES: 2+ pulses, warm, well-perfused, no edema. PSYCH: Normal mood, normal affect. SKIN: Warm, dry, normal turgor, no rashes or lesions noted CBC, BMP 12/18/17 08:39 Active Medications Clozapine (Clozaril -) 100 mg PO BID [facility] Last Admin: 12/18/17 09:52 Dose: 100 mg Doxycycline Hyclate (Vibramycin -) 100 mg PO BID@1000,1800 [facility] Last Admin: 12/18/17 09:52 Dose: 100 mg Enoxaparin Sodium (Lovenox -) 40 mg SQ DAILY [facility] Last Admin: 12/18/17 09:51 Dose: 40 mg Glycopyrrolate (Robinul -) 2 mg PO HS [facility] Last Admin: 12/17/17 21:41 Dose: 2 mg Cefoxitin Sodium 2 gm/ (Dextrose) 100 mls @ 200 mls/hr IVPB Q6H-IV XENA; Protocol Pantoprazole Sodium (Protonix -) 40 mg PO DAILY [facility] Last Admin: 12/18/17 09:52 Dose: 40 mg ASSESSMENT/PLAN: Clozapine (Clozaril -) 100 mg PO BID [facility] Doxycycline Hyclate (Vibramycin -) 100 mg PO BID@1000,1800 [facility] Enoxaparin Sodium (Lovenox -) 40 mg SQ DAILY [facility] Cefoxitin Sodium 2 gm/ (Dextrose) 100 mls @ 200 mls/hr IVPB Q6H-IV XENA; Protocol Cefoxitin Sodium 2 gm/ (Dextrose) 100 mls @ 200 mls/hr IVPB Q6H-IV XENA; Protocol Stop: 12/18/17 09:29 ASSESSMENT/PLAN: Patient is a 27 y/o female with history of bipolar disease/schizophrenia and asthma who is here for sepsis 2/2 to possible PID vs gastritis. #PID - past history of ovarian cyst, never followed up with gynecology - + CMT tenderness on examination - Cefoxitin 2gm IV Q6 - Doxycycline 100 mg po q12h - f/u obgyn Dr. Glover - f/u Dr. Steiner - f/u HIV, ghonorrhea, chlamydia #bipolar/schizophrenia - continue home meds Dispo: f/u Dr. Jonas Visit type - Emergency Visit Emergency Visit: No - New Patient This patient is new to me today: No - Critical Care Critical Care patient: No
[2017-12-18 10:15] LABS: ANION GAP 7 MMOL/L (8-16); BLOOD UREA NITROGEN 4 mg/dL (7-18); CALCIUM 8.9 mg/dL (8.5-10.1); CO2 25 mmol/L (21-32); CREATININE 0.6 mg/dL (0.55-1.02); GLUCOSE,RANDOM 110 mg/dL (74-106); MAGNESIUM 1.9 mg/dL (1.8-2.4); PHOSPHOROUS 2.9 mg/dL (2.5-4.9)
[2017-12-18] MEDS ORDERED: CEFOXITIN SODIUM 2 GM in DEXTROSE 5%-WATER - 100 ML IVPB SCH (15:00)
--- NOTE | 2017-12-18 15:02 | PN ---
Teaching Attending Note Name of Resident: Beverly Crowell ATTENDING PHYSICIAN STATEMENT I saw and evaluated the patient. I reviewed the resident's note and discussed the case with the resident. I agree with the resident's findings and plan as documented. SUBJECTIVE: No fever or chills. Abd pain is better . denies any vaginal discharge OBJECTIVE: NAD CV: RRR Lungs: CATB Ext: no edema Abd: soft, ND,mild TTP in LLQ, RUQ, and supra pubic area. no rebound tenderness or guarding ASSESSMENT AND PLAN: 27 y/o lady with h/o Asthma, depression , anxiety, bipolar and 4 C sections who presented with abd pain. 1- PID: - follow GC/C in urine . if discharged, this can be followed as out pt . - [employer] eval still pending - cont cefoxitine and doxy day 06/11 2- h/o ANxiety , depression and bipolar: cont clozapine 3- Asthma : not active dispo : might dc today pending [employer] [employer] eval.
[2017-12-18 15:37] VITALS: BP 114/73; PULSE 94; TEMP 98.5
--- NOTE | 2017-12-18 17:16 | DS ---
Physical Exam: SUBJECTIVE: Patient is a 27 y/o female with history of bipolar disease/schizophrenia and asthma who is here for sepsis 2/2 to possible PID. Patient had low BP over night , given a bolus of fluid. Patient had no acute complaints. OBJECTIVE: Vital Signs Temperature 98.5 F 12/18/17 15:36 Pulse Rate 94 H 12/18/17 15:36 Respiratory Rate 17 12/18/17 15:36 Blood Pressure 114/73 12/18/17 15:36 O2 Sat by Pulse Oximetry (%) 98 12/18/17 14:00 PHYSICAL EXAM GENERAL: The patient is awake, alert, and fully oriented, in no acute distress. EYES: PERRL, extraocular movements intact ENT: Ears normal, nares patent, oropharynx clear without exudates LUNGS: Breath sounds equal, clear to auscultation bilaterally HEART: Regular rate and rhythm, ABDOMEN: Soft, tender to mid epigastic palpation, nondistended, normoactive bowel sounds EXTREMITIES: 2+ pulses, warm, well-perfused, no edema. PSYCH: Normal mood, normal affect. SKIN: Warm, dry, normal turgor, no rashes or lesions noted LABS Laboratory Results - last 24 hr 12/17/17 12/18/17 12/18/17 10:55 08:39 08:39 WBC 5.6 RBC 4.44 Hgb 11.4 Hct 34.0 MCV 76.6 L MCH 25.7 MCHC 33.5 RDW 16.3 H Plt Count 265 MPV 7.5 Sodium 141 Potassium 4.1 Chloride 109 H Carbon Dioxide 25 Anion Gap 7 L BUN 4 L Creatinine 0.6 Creat Clearance w eGFR > 60 Random Glucose 110 H Calcium 8.9 Phosphorus 2.9 Magnesium 1.9 T.pallidum Ab (MHA) Non reactive HOSPITAL COURSE: Date of Admission:12/17/17 Patient is a 27 y/o female with history of bipolar disease/schizophrenia and asthma who is here for abdominal pain. She presented to the ED with a fever of 100.3 and had a white count of 14.7. On PE she had cervical motion tenderness and white vaginal discharge. She was started on cefoxitine and doxycycline. Dr. Jonas saw patient and determined that she is stable to be discharged. She was instructed to follow up with im as her OBGYN. Patient was seen by Dr. Steiner and treated appropriately with antibiotics. Patient was seen by psychiatrist, Dr. Wilks who continued her home medications. Suggested patient follow up with [facility] as they have her psych history. Patient was stable and discharged home. Date of Discharge: 12/18/17 Minutes to complete discharge: 35 Discharge Summary Reason For Visit: PID Current Active Problems PID (acute pelvic inflammatory disease) (Acute) Condition: Improved - Instructions Diet, Activity, Other Instructions: You came to the Emergency Department because of abdominal pain. We believe you have an infection in your pelvis. We gave you antibiotics to treat this infection. To complete treatment of your infection please take: Doxycycline 100 mg twice a day for 12 more days You were seen by psychiatry for your history. You should continue to follow with [facility] for your psychiatry treatment as they have been treating you in the past and are aware of your history. While you were here you were evaluated by the [facility], Dr. Jonas. You can follow up with him as an outpatient. You should continue to take your medications as prescribed. You should follow up with your Primary care doctor within one week. You should return to the ED if you have worsening symptoms, headache, chest pain , nausea, or vomiting. Referrals: [facility] [Provider Group] Eric Jonas MD [Staff Physician] - 1 Week Disposition: HOME - Home Medications Comprehensive Discharge Medication List: Ambulatory Orders Clozapine 100 mg PO BID 12/16/17 Glycopyrrolate [Robinul Forte -] 2 mg PO DAILY 12/16/17 Doxycycline Hyclate 100 mg PO BID #24 tablet 12/18/17 This patient is new to me today: No Emergency Visit: No Critical Care patient: No - Discharge Referral Referred to [facility] No
== END 2017-12-18 17:28 | disposition home or self-care (01) ==
LOC: JER 21:39 → JERBED 12-17 05:22 → UNDOADMOB 12-17 05:24 → JERBED 12-17 05:24 → J5S 12-17 09:29
PROVIDERS: ADMIT Internal Medicine; ATTEND Internal Medicine
PROC: 3E03329 Introduction of Other Anti-infective into Peripheral Vein, Percutaneous Approach (ICD-10-PCS; principal; 2017-12-17)
PROC: 3E02329 Introduction of Other Anti-infective into Muscle, Percutaneous Approach (ICD-10-PCS; 2017-12-17)
PROC: 3E0337Z Introduction of Electrolytic and Water Balance Substance into Peripheral Vein, Percutaneous Approach (ICD-10-PCS; 2017-12-17)
PROC: 3E033NZ Introduction of Analgesics, Hypnotics, Sedatives into Peripheral Vein, Percutaneous Approach (ICD-10-PCS; 2017-12-17)
PROC: 3E033GC Introduction of Other Therapeutic Substance into Peripheral Vein, Percutaneous Approach (ICD-10-PCS; 2017-12-17)
PROC: 3E013GC Introduction of Other Therapeutic Substance into Subcutaneous Tissue, Percutaneous Approach (ICD-10-PCS; 2017-12-17)
DX: N73.0 Acute parametritis and pelvic cellulitis (principal); R10.84 Generalized abdominal pain; F17.210 Nicotine dependence, cigarettes, uncomplicated; J45.909 Unspecified asthma, uncomplicated; F32.9 Major depressive disorder, single episode, unspecified; F20.3 Undifferentiated schizophrenia; E66.9 Obesity, unspecified; Z68.30 Body mass index [BMI] 30.0-30.9, adult
CPT/HCPCS: 36415; 74176-TC; 80048; 80053; 81003; 81015; 83690; 83735; 84100; 84703; 85025; 85027; 86780; 87086; 87389; 87491; 87591; 93005; 93010; 96365; 96372; 96375; 96376; 99285-25; G0378; J0131; J7030

== ENCOUNTER 2019-02-14 12:20 | Emergency (ER) | payer OTHER ==
[2019-02-14 12:25] VITALS: BP 115/67; PULSE 108; TEMP 98.4; BMI 32.2
[2019-02-14 13:01] LABS: EPI CELLS 10.9 /HPF (0-5/HPF); HYALINE CASTS 4 /lpf (0-8); PH,URINE 6.5 (5.0-8.0); URINE APPEARANCE CLOUDY; URINE BACTERIA 217.5 /hpf (NEGATIVE); URINE BILIRUBIN NEGATIVE (NEGATIVE); URINE COLOR YELLOW; URINE GLUCOSE (UA) NEGATIVE (NEGATIVE); URINE KETONE TRACE (NEGATIVE); URINE LEUK ESTERASE NEGATIVE (NEGATIVE); URINE NITRITE NEGATIVE (NEGATIVE); URINE PROTEIN TRACE (NEGATIVE); URINE RBC 8 /hpf (0-4); URINE UROBILINOGEN 0.2 mg/dL (0.2-1.0); URINE WBC 3 /hpf (0-5)
--- NOTE | 2019-02-14 13:02 | PDOC ---
History of Present Illness - General Chief Complaint: Respiratory Stated Complaint: DIZZYNESS/ NAUSEOUS/ COUGHING Time Seen by Provider: 02/14/19 12:27 History Source: Patient - History of Present Illness Timing/Duration: reports: constant Past History - Past Medical History Allergies/Adverse Reactions: Allergies Allergy/AdvReac Type Severity Reaction Status Date / Time haloperidol [From Haldol] Allergy Verified 02/14/19 12:25 "anesthesia" Allergy Uncoded 02/14/19 12:25 Home Medications: Ambulatory Orders Clozapine 100 mg PO BID 12/16/17 Glycopyrrolate [Robinul Forte -] 2 mg PO DAILY 12/16/17 Doxycycline Hyclate 100 mg PO BID #24 tablet 12/18/17 Anemia: No Asthma: Yes Cancer: No Cardiac Disorders: No CVA: No COPD: No CHF: No Dementia: No Diabetes: No GI Disorders: No Disorders: No HTN: No Hypercholesterolemia: No Kidney Stones: No Liver Disease: No Psychiatric Problems: Yes (SCHIZOPHRENIA,ANXIETY, DEPRESSION, PANIC ATTACKS.) Seizures: No Thyroid Disease: No - Surgical History Abdominal Surgery: Yes - Reproductive History (#): 4 Para: 3 PID: No Therapeutic (s) & number: Yes Spontaneous : 1 - Immunization History Immunization Up to Date: No - Psycho Social/Smoking Cessation Hx Smoking Status: No Smoking History: Never smoked Have you smoked in the past 12 months: No Number of Cigarettes Smoked Daily: 1 'Breaking Loose' booklet given: 12/16/17 Hx Alcohol Use: No Drug/Substance Use Hx: No Substance Use Type: None Hx Substance Use Treatment: Yes (marijuana) Respiratory Specific PMHX - Complaint Specific PMHX Hx TB (Tuberculosis): No Review of Systems - Review of Systems Constitutional: Yes: Chills, Malaise HEENTM: No: Ear Pain, Throat Pain Respiratory: Yes: Cough. No: Shortness of Breath, Wheezing ABD/GI: Yes: Nausea, Vomiting. No: Diarrhea, Abdominal cramping : Yes: Frequency. No: Dysuria, Discharge, Flank Pain, Hematuria Neurological: Yes: Dizziness. No: Headache *Physical Exam - Vital Signs Last Vital Signs Temp Pulse Resp BP Pulse Ox 98.4 F 108 H 18 115/67 97 02/14/19 12:22 02/14/19 12:22 02/14/19 12:22 02/14/19 12:22 02/14/19 12:22 - Physical Exam Comments: 02/14/19 12:37 delgado uncomfortable General Appearance: Yes: Appropriately Dressed HEENT: positive: Normal ENT Inspection, Normal Voice, TMs Normal, Pharynx Normal. negative: Scleral Icterus (R), Scleral Icterus (L) Neck: positive: Supple. negative: Lymphadenopathy (R), Lymphadenopathy (L) Respiratory/Chest: positive: Lungs Clear, Normal Breath Sounds. negative: Respiratory Distress Cardiovascular: positive: Regular Rate, S1, S2 Gastrointestinal/Abdominal: positive: Soft. negative: Tender Musculoskeletal: negative: CVA Tenderness Integumentary: positive: Dry, Warm Neurologic: positive: Fully Oriented, Alert, Normal Mood/Affect Medical Decision Making - Medical Decision Making 02/14/19 12:35 28-year-old female, history of asthma and anemia, here with malaise with dizziness, n/v and cough x4 days. + chills but no recorded fever. No diarrhea or SOB. Patient also complaining of ? urinary frequency but no dysuria otherwise and no abd/flank pain. No recent travel or sick contacts see exam M/l viral illness Delgado unwell but non-toxic w/ unremarkable exam otherwise UA unremarkable, ucx sent, upreg neg Dc w/ supportive tx Discharge - Discharge Information Problems reviewed: Yes Clinical Impression/Diagnosis: Viral syndrome Condition: Stable Disposition: HOME - Follow up/Referral - Patient Discharge Instructions Patient Printed Discharge Instructions: DI for Viral Syndrome Additional Instructions: Your symptoms are most likely viral. Rest drink plenty of fluids and take Motrin or Tylenol as needed for pain and or fever Your urine was negative here - Post Discharge Activity
== END 2019-02-14 13:22 | disposition home or self-care (01) ==
LOC: JERFT 12:20
DX: B34.9 Viral infection, unspecified (principal); F20.9 Schizophrenia, unspecified; F41.9 Anxiety disorder, unspecified; F32.9 Major depressive disorder, single episode, unspecified; F41.0 Panic disorder [episodic paroxysmal anxiety]; Z87.09 Personal history of other diseases of the respiratory system; Z86.2 Personal history of diseases of the blood and blood-forming organs and certain disorders involving the immune mechanism; Z88.0 Allergy status to penicillin; Z88.4 Allergy status to anesthetic agent
CPT/HCPCS: 81003; 84703; 87086; 99282-25

== ENCOUNTER 2019-10-24 14:08 | Emergency (ER) | payer OTHER ==
[2019-10-24] MEDS ORDERED: SODIUM CHLORIDE 1,000 ML IV STA (14:23)
[2019-10-24] MEDS ORDERED: METOCLOPRAMIDE HCL INJECTION 10 MG/2 ML VIAL IVPB ONE (14:23)
[2019-10-24 14:25] VITALS: BP 107/58; PULSE 86; TEMP 98.5; BMI 32.1
--- NOTE | 2019-10-24 14:25 | PDOC ---
Rapid Medical Evaluation Time Seen by Provider: 10/24/19 14:20 Medical Evaluation: Allergies Allergy/AdvReac Type Severity Reaction Status Date / Time haloperidol [From Haldol] Allergy Verified 10/24/19 14:20 "anesthesia" Allergy Uncoded 10/24/19 14:20 10/24/19 14:20 Pt presents to the ER for lightheadedness. She states it started at work this morning at 11:30. Last ate breakfast this morning consisting of an apple and a banana. She states that she almost passed out. States that she feels a little better now. Admits to nausea and headache (starting two days ago, mostly resolved with excedrin) Exam: NAD, speaking in full sentences. Ambulatory Orders: labs, IV, EKG Pt to proceed to the ER for further evaluation Discharge Disposition - Diagnosis Lightheaded - Referrals - Patient Instructions - Post Discharge Activity
[2019-10-24] MEDS ORDERED: METOCLOPRAMIDE HCL INJECTION 10 MG/2 ML VIAL ONE (14:30)
--- NOTE | 2019-10-24 14:31 | PDOC ---
History of Present Illness - General Chief Complaint: Lightheaded Stated Complaint: DIZZNESS/NAUSEOUS Time Seen by Provider: 10/24/19 14:20 History Source: Patient - History of Present Illness Initial Comments: 10/24/19 15:19 29F w/hx schizophrenia, asthma, p/w 20 minutes of acute onset lightheadedness, now resolved. 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 She denies any prior similar episodes, any nausea, vomiting, vertigo or room spinning, difficulty ambulating, weakness, confusion, fevers, chills. She reports that her symptoms have now resolved entirely. No new medications, changes in diet, sick contacts. Past History - Medical History Allergies/Adverse Reactions: Allergies Allergy/AdvReac Type Severity Reaction Status Date / Time haloperidol [From Haldol] Allergy Verified 10/24/19 14:20 "anesthesia" Allergy Uncoded 10/24/19 14:20 Home Medications: Ambulatory Orders Clozapine 100 mg PO BID 12/16/17 Glycopyrrolate [Robinul Forte -] 2 mg PO DAILY 12/16/17 Doxycycline Hyclate 100 mg PO BID #24 tablet 12/18/17 Anemia: No Asthma: Yes Cancer: No Cardiac Disorders: No CVA: No COPD: No CHF: No Dementia: No Diabetes: No GI Disorders: No Disorders: No HTN: No Hypercholesterolemia: No Kidney Stones: No Liver Disease: No Psychiatric Problems: Yes (SCHIZOPHRENIA,ANXIETY, DEPRESSION, PANIC ATTACKS.) Seizures: No Thyroid Disease: No - Surgical History Abdominal Surgery: Yes - Reproductive History (#): 4 Para: 3 PID: No Therapeutic (s) & number: Yes Spontaneous : 1 - Immunization History Immunization Up to Date: No - Psycho-Social/Smoking History Smoking Status: No Smoking History: Never smoked Have you smoked in the past 12 months: No Number of Cigarettes Smoked Daily: 1 Information on smoking cessation initiated: No 'Breaking Loose' booklet given: 12/16/17 - Substance Abuse Hx (Audit-C & DAST Scrn) How often the patient has a drink containing alcohol: Monthly or less Number of drinks the patient has on a typical day: 1 or 2 How often the patient has six or more drinks on one occasion: Less than monthly Score: In Men: 4 or > Positive; In Women: 3 or > Positive: 2 Screen Result (Pos requires Nsg. Audit-10AR): Negative In the last yr the pt used illegal drug/Rx for NonMed reason: No Score: Yes response is considered Positive: 0 Screen Result (Positive result requires Nsg. DAST-10): Negative Review of Systems - Review of Systems Able to Perform ROS?: Yes Comments:: 10/24/19 15:23 GENERAL/CONSTITUTIONAL: No fever or chills. No weakness. HEAD, EYES, EARS, NOSE AND THROAT: No change in vision. No ear pain or discharge. No sore throat. CARDIOVASCULAR: No chest pain or shortness of breath RESPIRATORY: No cough, wheezing, or hemoptysis. GASTROINTESTINAL: No nausea, vomiting, diarrhea or constipation. GENITOURINARY: No dysuria, frequency, or change in urination. MUSCULOSKELETAL: No joint or muscle swelling or pain. No neck or back pain. SKIN: No rash NEUROLOGIC: No headache, vertigo, loss of consciousness, or change in strength/sensation. ENDOCRINE: No increased thirst. No abnormal weight change HEMATOLOGIC/LYMPHATIC: No anemia, easy bleeding, or history of blood clots. ALLERGIC/IMMUNOLOGIC: No hives or skin allergy. *Physical Exam - Vital Signs Last Vital Signs Temp Pulse Resp BP Pulse Ox 98.5 F 86 18 107/58 L 100 10/24/19 14:21 10/24/19 14:21 10/24/19 14:21 10/24/19 14:21 10/24/19 14:21 - Physical Exam 10/24/19 15:23 GENERAL: Awake, alert, and fully oriented, in no acute distress HEAD: No signs of trauma, normocephalic, atraumatic EYES: PERRLA, EOMI, sclera anicteric, conjunctiva clear ENT: Auricles normal inspection, hearing grossly normal, nares patent, oropharynx clear without exudates. Moist mucosa NECK: Normal ROM, supple, no lymphadenopathy, JVD, or masses LUNGS: No distress, speaks full sentences, clear to auscultation bilaterally HEART: Regular rate and rhythm, normal S1 and S2, no murmurs, rubs or gallops, peripheral pulses normal and equal bilaterally. ABDOMEN: Soft, nontender, normoactive bowel sounds. No guarding, no rebound. No masses EXTREMITIES : Normal inspection, Normal range of motion, no edema. No clubbing or cyanosis NEUROLOGICAL: Cranial nerves II through XII grossly intact. Normal speech, normal gait, no focal sensorimotor deficits SKIN: Warm, Dry, normal turgor, no rashes or lesions noted ED Treatment Course - LABORATORY CBC & Chemistry Diagram: 10/24/19 14:25 10/24/19 14:25 Medical Decision Making - Medical Decision Making 10/24/19 15:24 29F p/w brief episode of lightheadedness, now resolved, while at work. Ddx dehydration, hypoglycemia, electrolyte derangement, vagal near syncope. Plan: CBC CMP EKG 1L LR Serum test Dispo: Discharge --- Serum preg - negative CBC - wnl CMP - wnl Plan for discharge with close PCP follow up. Discharge - Discharge Information Problems reviewed: Yes Clinical Impression/Diagnosis: Lightheaded Condition: Stable Disposition: HOME - Admission No - Follow up/Referral - Patient Discharge Instructions Patient Printed Discharge Instructions: DI for Dizziness-Nonvertigo Additional Instructions: You were seen in the ER for lightheadedness. Your bloodwork was normal. Your symptoms resolved with fluids. Follow up with your primary care physician as soon as possible, in the next 2-3 days. Return to the ER if you develop worsening dizziness, weakness, confusion, are unable to walk, chest pain, or difficulty breathing. - Post Discharge Activity
--- NOTE | 2019-10-24 14:46 | PDOC ---
Attending Attestation - Resident Resident Name: Basil Sharif - HPI HPI: 10/24/19 17:15 Pt presents to the ED complaining of lightheadness that has now resolved. Denies chest pain, nausea or vomiting or shortness of breath. Denies fever. Denies abdominal pain. - Physicial Exam PE: 10/24/19 17:18 Agree with resident exam. Patient is alert and oriented and in no acute distress. HEENT: normocephalic, atraumatic. CV:rrr no m/r/g Pulm: cta b/l Abdomen: soft, non tender, non distended, no guarding or rebound. - Medical Decision Making 10/24/19 17:21 Pt presents to the ED complaining of lightheadness that has now resolved. Differential included dehydration, , arrythmia, severe anemia. Labs are normal. Preganancy is negative. patient feels improved. will discharge home. Discharge - Discharge Information Problems reviewed: Yes Clinical Impression/Diagnosis: Lightheaded Condition: Stable Disposition: HOME - Follow up/Referral Referrals: Leeanne Romo EP TECH [Primary Care Provider] - - Patient Discharge Instructions Patient Printed Discharge Instructions: DI for Dizziness-Nonvertigo Additional Instructions: You were seen in the ER for lightheadedness. Your bloodwork was normal. Your symptoms resolved with fluids. Follow up with your primary care physician as soon as possible, in the next 2-3 days. Return to the ER if you develop worsening dizziness, weakness, confusion, are unable to walk, chest pain, or difficulty breathing. - Post Discharge Activity
[2019-10-24 14:49] LABS: BASO % 0.5 % (0-2.0); HEMATOCRIT 32.6 % (32.4-45.2); HEMOGLOBIN 10.5 GM/dL (10.7-15.3); LYMPH % 26.4 % (8-40); MCH 22.6 pg (25.7-33.7); MCHC 32.3 g/dl (32.0-36.0); MEAN CELL VOLUME 70.1 fl (80-96); MEAN PLT VOLUME 7.5 fl (7.5-11.1); MONO % 11.3 % (3.8-10.2); NEUT % 61.8 % (42.8-82.8); PLATELET COUNT 317 K/MM3 (134-434); RBC 4.65 M/mm3 (3.60-5.2); RDW 16.1 % (11.6-15.6); WHITE BLOOD COUNT 4.4 K/mm3 (4.0-10.0)
[2019-10-24 15:13] LABS: ALBUMIN 3.6 g/dl (3.4-5.0); BILIRUBIN,TOTAL 0.5 mg/dL (0.2-1); CALCIUM 8.8 mg/dL (8.5-10.1); CREATININE 0.7 mg/dL (0.55-1.3); POTASSIUM 3.8 mmol/L (3.5-5.1); TOT PROT 7.6 g/dl (6.4-8.2)
[2019-10-24 15:51] LABS: HCG,QUALITATIVE URINE Negative
[2019-10-24 15:59] LABS: URINE APPEARANCE Clear; URINE BILIRUBIN Negative (NEGATIVE); URINE COLOR Yellow; URINE GLUCOSE (UA) Negative (NEGATIVE); URINE KETONE Negative (NEGATIVE); URINE LEUK ESTERASE Negative (NEGATIVE); URINE NITRITE Negative (NEGATIVE); URINE PROTEIN Trace (NEGATIVE); URINE UROBILINOGEN 0.2 mg/dL (0.2-1.0)
[2019-10-24 16:05] LABS: EPI CELLS 20.6 /uL (0-25.1); HYALINE CASTS 3.72 /uL (0-3.1); URINE BACTERIA 97.5 /uL (0-1359); URINE RBC 998.1 /uL (0-23.9); URINE WBC 13.4 /uL (0-25.8)
--- NOTE | 2019-10-25 09:21 | EKG ---
Test Reason : Blood Pressure : / mmHG Vent. Rate : 074 BPM Atrial Rate : 074 BPM P-R Int : 184 ms QRS Dur : 108 ms QT Int : 398 ms P-R-T Axes : 030 022 039 degrees QTc Int : 441 ms NORMAL SINUS RHYTHM INCOMPLETE RIGHT BUNDLE BRANCH BLOCK NONSPECIFIC T WAVE ABNORMALITY ABNORMAL ECG WHEN COMPARED WITH ECG OF 16-DEC-2017 23:22, VENT. RATE HAS DECREASED BY 59 BPM T WAVE INVERSION NO LONGER EVIDENT IN ANTERIOR LEADS Confirmed by RAY LEBLANC MD ([id number]) on 10/25/2019 9:21:09 AM Referred By: Confirmed By:RAY LEBLANC MD
== END 2019-10-24 15:35 | disposition home or self-care (01) ==
LOC: JER 14:08
PROC: 3E033NZ Introduction of Analgesics, Hypnotics, Sedatives into Peripheral Vein, Percutaneous Approach (ICD-10-PCS; principal; 2019-10-24)
PROC: 3E033GC Introduction of Other Therapeutic Substance into Peripheral Vein, Percutaneous Approach (ICD-10-PCS; 2019-10-24)
PROC: 3E0337Z Introduction of Electrolytic and Water Balance Substance into Peripheral Vein, Percutaneous Approach (ICD-10-PCS; 2019-10-24)
DX: R42 Dizziness and giddiness (principal)
CPT/HCPCS: 36415; 80053; 81003; 84703; 85025; 87086; 93005; 93010; 96361; 96374; 96375; 99285-25

== ENCOUNTER 2020-01-16 08:58 | Emergency (ER) | payer OTHER ==
[2020-01-16 09:07] VITALS: PULSE 79; BMI 30.2
--- OUTSIDE RECORDS SUMMARY | 2020-01-16 09:17 | XMS ---
:1990 Author Organization [facility] Care Team Providers Name Role Phone MD EMBER Unavailable Unavailable Partha Unavailable [phone] Chavis Unavailable [phone] [facility] Unavailable Unavailable Manav Unavailable [phone] An Unavailable [phone] MARIAH WALL Unavailable Unavailable ED STAFF PHYSICIAN Unavailable Unavailable ED STAFF PHYSICIAN Unavailable Unavailable Coon Unavailable Unavailable Coon Unavailable Unavailable Coon Unavailable Unavailable Coon Unavailable Unavailable Coon Unavailable Unavailable Coon Unavailable Unavailable ED STAFF PHYSICIAN Unavailable Unavailable Tao Unavailable Unavailable Tao Unavailable Unavailable Tao Unavailable Unavailable Tao Unavailable Unavailable ODALYS Unavailable Unavailable [id number] Unavailable Unavailable Menla Unavailable Unavailable Menla Unavailable Unavailable Menla Unavailable Unavailable Menla Unavailable Unavailable Menla Unavailable Unavailable Menla Unavailable Unavailable ED STAFF PHYSICIAN Unavailable Unavailable ZUNASSIGNED Unavailable Unavailable Veselinovic Unavailable [phone] Veselinovic Unavailable [phone] VALDEZ PRESCOTT Unavailable Unavailable TAO Unavailable Unavailable [email or web address]@, Unavailable Unavailable Re-disclosure Warning The records that you are about to access may contain information from federally- assisted alcohol or drug abuse programs. If such information is present, then the following federally mandated warning applies: This information has been disclosed to you from records protected by federal confidentiality rules (42 CFR part 2). The federal rules prohibit you from making any further disclosure of this information unless further disclosure is expressly permitted by the written consent of the person to whom it pertains or as otherwise permitted by 42 CFR part 2. A general authorization for the release of medical or other information is NOT sufficient for this purpose. The Federal rules restrict any use of the information to criminally investigate or prosecute any alcohol or drug abuse patient.The records that you are about to access may contain highly sensitive health information, the redisclosure of which is protected by Article 27-F of the [facility] Public Health law. If you continue you may haveaccess to information: Regarding HIV / AIDS; Provided by facilities licensed or operated by the [facility] Office of Mental Health; or Provided by the [facility] Office for People With Developmental Disabilities. If such information is present, then the following [facility] mandated warning applies: This information has been disclosed to you from confidential records which are protected by state law. State law prohibits you from making any further disclosure of this information without the specific written consent of the person to whom it pertains, or as otherwise permitted by law. Any unauthorized further disclosure in violation of state law may result in a fine or mcfp sentence or both. A general authorization for the release of medical or other information is NOT sufficient authorization for further disclosure. Allergies and Adverse Reactions Type Description Substance Reaction Status Data Source(s ) Drug allergy Haloperidol Haloperidol Active NEXTGEN (S [facility] Center) Drug allergy Haloperidol HALOPERIDOL Active NEXTGEN (S aint lactate LACTATE [facility]) propensity to Local anesthetic Anesthetics - Active NE XTGEN ([facility] adverse reactions (substance) Shweta Type- Jj Medical to drug Parabens [place]) propensity to Lidocaine Lidocaine Active NEXTGEN (Sa int adverse reactions [facility] drug [place]) Drug allergy Morphine Sulfate MORPHINE SULFATE Active [facility] ([facility] [place]) Drug allergy No Known Drug No Known Drug [facility] Allergies Allergies [facility] Food allergy No Known Food No Known Food [facility] Allergies Allergies [facility] No Known No Known Allergies No Known Allergies [facility] ([facility]) Family History Family Member Family Member Family Member Date of Description Data Source(s) Name Gender Status Status Unknown Male Diagnosis 12/31/2017 NEXTGEN ([facility] 12:00:[address] [facility] EDT [place]) Unknown Male Diagnosis 12/31/2017 NEXTGEN ([facility] 12:00:00 [facility] EDT [place]) Unknown Male Diagnosis 12/31/2017 NEXTGEN ([facility] 12:00:00 [facility] EDT [place]) Encounters Encounter Providers Location Date Indications Data Source(s ) Outpatient Attender: 01/14/2020 [facility] JARVISSSIGNEDAdmitter: 03:37:00 PM [facility] ZUNASSIGNEDReferrer: EDT [id number] [email or web address]@, Outpatient Attender: LEEANNE Redd 01/14/2020 [facility] ROCKYdmitter: LEEANNE 11:06:00 AM [facility] ANYAAReferrer: LEEANNE TAO Outpatient Attender: 01/14/2020 PsychiatricIGNEDAdmitter: 12:00:00 AM [facility] ZUNASSIGNEDReferrer: EDT [id number] [email or web address]@, Outpatient 12/07/2019 [facility] 11:40:00 AM Medical Cente r EDT Outpatient 12/07/2019 [facility] 12:00:00 AM Medical Cente r EDT Outpatient Attender: CNR9 [facility] 11/27/2019 [facility] ([facility] 11:32:26 AM [facility] EDT [facility]) Patient admitted. Outpatient 11/22/2019 [facility] 12:09:00 PM EDT Medical C enter Outpatient Attender: LEEANNE Redd 11/22/2019 [facility] MEJIAAdmitter: 10:39:00 AM EDT Medic al Center LEEANNE Manceraferrer: LEEANNE TAO OutpatientOFFICE/O Attender: [facility] 11/22/2019 Manju EXTGEN ([facility] VISIT, Tao 10:39:00 AM EDT - J osep EST 11/22/2019 Medical 10:39:00 AM EDT Center) Outpatient 11/22/2019 [facility] 12:00:00 AM EDT - Medical Center 07/22/2012 12:00:00 AM EDT Outpatient Attender: LEEANNE Redd 11/05/2019 [facility] MEJIAAdmitter: 11:00:00 AM EDT Medic al Center LEEANNE Gillrer: LEEANNE TAO OutpatientOFFICE/O Attender: [facility] 11/05/2019 NE XTGEN ([facility] VISIT, Menla 11:00:00 AM EDT - J osep EST 11/05/2019 Medical 11:00:00 AM EDT Center) Outpatient 11/05/2019 [facility] 10:54:00 AM EDT Medical C enter Outpatient 11/05/2019 [facility] 12:00:00 AM EDT Medical C enter Attender: [facility] 08[facility]2019 [facility] (S aint Menla 03:15:00 PM EDT [facility] 08/30/2019 Medical 03:15:00 PM EDT Center) Attender: [place] 08/26/2019 MATI (Sa kamilah Craig [facility] 09:34:00 AM EDT - [facility] 08/26/2019 Medical 09:34:00 AM EDT Center) Emergency Attender: ART Redd 08/24/2019 [facility] ED STAFF 10:20:00 AM EDT - Medical Center PHYSICIANAttende 08/24/2019 r: STAFF ED 06:35:00 PM EDT STAFF PHYSICIANAdmitte r: ART ED STAFF PHYSICIAN Patient discharged. Outpatient Attender: CNR9 [facility] 07/16/2019 05:14:17 AM I ([facility]) Patient admitted. Outpatient 07/06/2019 [facility] 03:08:00 PM EDT Medical C enter Outpatient Attender: KENYON Redd 07/06/2019 [facility] Dipesh KELLOGG 10:25:00 AM EDT Medical C enter MAGDAEAdmitter: KENYON Ratliffferrer: KENYON PRESCOTT OutpatientOFFICE/O Attender: [facility] 07/06/2019 N EXTGEN ([facility] UTPATIENT VISIT, Tao 10:25:00 AM EDT - [facility] Medical EST 07/06/2019 Center) 10:25:00 AM EDT Outpatient 07/06/2019 [facility] 12:00:00 AM EDT - Medical Center 07/22/2012 12:00:00 AM EDT Unlisted 06/29/2019 NETSMART (Ment al evaluation and 02:35:00 PM EST [facility]) Outpatient Attender: LEEANNE Redd 06/25/2019 [facility] ANYAAAdmitter: 02:21:00 PM EST Medic al Center LEEANNE Ovaller: LEEANNE TAO OutpatientOFFICE/O Attender: Leeanne [facility] 06/25/2019 N EXTGEN ([facility] VISIT, Tao 02:21:00 PM EST - [facility] EST 06/25/2019 [place]) 02:21:00 PM EST Outpatient 06/25/2019 [facility] 01:32:00 PM EST Medical C enter Outpatient 06/25/2019 [facility] 12:00:00 AM EST Medical C enter Unlisted 06/16/2019 NETSMART (Ment al evaluation and 04:54:00 PM EST [facility] management service [facility]) Emergency Attender: AUSTIN Redd 06/16/2019 [facility] ED STAFF 03:50:00 PM EST - Medical Center PHYSICIANAttender 06/16/2019 : STAFF ED STAFF 06:36:00 PM EST PHYSICIANAdmitter : AUSTIN ED STAFF PHYSICIAN Patient discharged. Outpatient 06/08/2019 [facility] 02:11:00 PM EST Medical C enter Outpatient 06/08/2019 [facility] 12:00:00 AM EST Medical C enter Outpatient 06/02/2019 [facility] 04:30:00 PM EST Medical C enter Psychiatric Diagnostic Attender: [facility] 06/02/2019 MATI Petersen (45+ Min) [facility] 02:52:00 PM [facility] 06/02/2019 Medical 02:52:00 PM EST Center) Outpatient Attender: KENYON Redd 06/02/2019 [facility] VALDEZ 02:52:00 PM EST Medical C enter MIKEAdmitter: KENYON Ratliffferrer: KENYON PRESCOTT Outpatient 06/02/2019 [facility] 12:00:00 AM EST Medical C enter Outpatient 05/26/2019 [facility] 02:09:00 PM EST Medical C enter Outpatient 05/26/2019 [facility] 12:00:00 AM EST Medical C enter Outpatient Attender: LEEANNE Redd 05/13/2019 [facility] 12:31:00 PM EST Medic al Center LEEANNE Ovaller: LEEANNE TAO OutpatientWell Visit, Attender: Leeanne [facility] 05/13/2019 RAGHAV ([facility],18-39years Tao 12:31:00 PM [facility] - [facility] 05/13/2019 Medical 12:31:00 PM EST Center) Outpatient 05/13/2019 [facility] 12:06:00 PM EST Medical C enter Outpatient 05/13/2019 [facility] 12:00:00 AM EST Medical C enter Emergency Attender: KIRSTIN Redd 03/26/2019 [facility] ED STAFF 10:03:00 AM [facility] - [facility] Center PHYSICIANAttender 03/26/2019 : STAFF ED STAFF 12:53:00 PM EST PHYSICIANAdmitter : KIRSTIN ED STAFF PHYSICIAN Patient discharged. Outpatient 02/24/2019 03:19:09 PM EDT I ([facility]) Patient admitted. Emergency H 02/16/2019 11:16:00 AM EDT - 019 [facility] 04:23:00 PM EDT Patient discharged. Emergency H 10/16/2018 [facility] 10:21:00 PM EDT Medical C enter Initial Eval W/ Attender: Mental Health 10/12/2018 IMANI Nunes ([facility] 01:58:00 PM EDT [place] vickie Chavis - 10/12/2018 Medical 01:58:00 PM EDT Center) Attender: [facility] 10/02/2018 IMANI Nunes ([facility] 02:23:00 PM EDT [facility] - 10/02/2018 Medical 02:23:00 PM EDT Center) Outpatient Attender: DENA Redd 09/25/2018 [facility] Edilia lyly LEMUS 10:05:00 AM EDT Medical Center GERSONdmitter: DENA SALAZARA Attender: Dena [facility] 09/25/2018 NEXTG EN ([facility] 10:05:00 AM EDT [facility] - 09/25/2018 Medical 10:05:00 AM EDT Center) 09/25/2018 [facility] 12:00:00 AM EDT Medical C enter - 07/22/2012 12:00:00 AM EDT Emergency H 09/24/2018 [facility] 10:37:00 AM EDT Medical C enter Attender: [facility] 09/22/2018 NEX TGEN ([facility] 09:55:00 AM EDT [facility] - 09/22/2018 Medical 09:55:00 AM EDT Center) Outpatient [facility] 08/25/2018 eCW3 ([facility] A28 12:00:00 AM EDT [facility] - 08/25/2018 Care) 12:00:00 AM EDT Attender: [facility] 06/24/2018 NEX TGEN ([facility] 03:31:00 PM EST [facility] - 06/24/2018 Medical 03:31:00 PM EST Center) OutpatientOFFICE/ Attender: [facility] 05/11/2018 [facility]00 AM [facility] 05/11/2018 Medical 09:33:00 AM EST Center) OutpatientOFFICE/ Attender: Leeanne [place] 04/23/2018 NEXTGEN ([facility] OUTPATIENT VISIT, [facility] 10:02:00 AM EST J osephs EST - 04/23/2018 Medical 10:02:00 AM EST Center) Attender: [facility] 04/08/2018 NEX TGEN ([facility] 08:59:00 AM EST [facility] - 04/08/2018 Medical 08:59:00 AM EST Center) Attender: [facility] 03/31/2018 NEX TGEN ([facility] 09:07:00 AM EST [facility] - 03/31/2018 Medical 09:07:00 AM EST Center) OutpatientOFFICE/ Attender: Kiara [place] 03/24/2018 [facility] ([facility] OUTPATIENT VISIT, [facility] 09:36:00 AM EST J osep EST - 03/24/2018 Medical 09:36:00 AM EST Center) OutpatientOFFICE/ Attender: Kiara [place] 03/10/2018 [facility] ([facility] OUTPATIENT VISIT, [facility] 01:45:00 PM EST J osep EST - 03/10/2018 Medical 01:45:00 PM EST Center) Attender: Kiara [place] 02/23/2018 NEX TGEN ([facility] 12:00:00 PM EDT [facility] - 02/23/2018 Medical 12:00:00 PM EDT Center) Attender: Kiara [place] 02/19/2018 NEX TGEN ([facility] 09:22:00 AM EDT [facility] - 02/19/2018 Medical 09:22:00 AM EDT Center) Attender: Kiara [place] 02/11/2018 NEX TGEN ([facility] 09:13:00 AM EDT [facility] - 02/11/2018 Medical 09:13:00 AM EDT Center) Attender: Kiara [place] 01/27/2018 NEX TGEN ([facility] 10:01:00 AM EDT [facility] - 01/27/2018 Medical 10:01:00 AM EDT Center) Attender: Kiara [place] 12/31/2017 NEX TGEN ([facility] 10:56:00 AM EDT [facility] - 12/31/2017 Medical 10:56:00 AM EDT Center) Outpatient Attender: RORY HODGE 12/12/2017 [facility] PAAdmitter: 09:00:00 AM EDT Ho keturah PRATHER - 08/27/2018 ODALYS 09:00:00 AM EDT Attender: 12/12/2017 Ric [id number]. 09:00:00 AM EDT H ospital [id number] Attender: 10/30/2017 [facility] [id number]. 05:55:00 PM EDT H ospital [id number] Attender: 10/30/2017 [place] [id number]. 05:03:00 PM EDT H ospital [id number] Attender: 05/22/2016 [place] [id number]. 10:11:00 AM EST H ospital [id number] Attender: 05/21/[id number]. 09:35:00 AM EST H ospital [id number] Attender: 05/02/[id number]. 10:29:00 AM EST H ospital [id number] [id number] Attender: 05/01/[id number]. 04:08:00 PM EST H ospital [id number] Attender: 06/09/2015 [place] [id number]. 09:00:00 AM EST H ospital [id number] Attender: 05/29/2015 [place] [id number]. 02:55:00 PM EST H ospital [id number] Attender: 04/26/[id number]. 11:54:00 AM EST H ospital [id number] [id number] Attender: 04/25/[id number]. 10:03:00 AM EST H ospital [id number] Attender: 07/29/[id number]. 09:38:00 PM EDT H ospital [id number] Attender: 04/22/2012 [facility] [id number]. 06:10:00 PM EST H ospital [id number] [id number] Immunizations Vaccine Date Status Description Data Source(s) Tdap 06/25/2019 12:00:00 AM completed Tdap NEXTG EN ([facility]) Source: New Immunization Record New in 2011. 05/13/2019 12:00:00 completed Influenza, Injectable , NEXTGEN ([facility] IIV AM EST Quadrivalent [facility]) Source: New Immunization Record New in 2011. 02/19/2018 12:00:00 completed Influenza, Injectable , [facility]GEN [facility] Quadrivalent (3 years [facility] or older) [place]) Source: New Immunization Record Medications Medication Brand Start Product Dose Route [facility] Indications Reaction Description Data Name Date Form Instructions Instructions Source(s) buspirone busPIR .0 Oral active NETS MART hydrochlori one 2019 Table (Mental de 5 MG 04:00: t Health Oral Tablet 00 AM Associa maria antonia EDT n of [place] r) Metronidazo metron ORAL active take 1 NEXTGEN le 500 MG idazol 2019 {tbl} tablet by (S aint Oral Tablet e 500 12:00: oral route [facility] metronidazo mg 00 AM every 12 Med ical le 500 mg tablet EDT hours [place]) tablet benztropine Benztr 1.0 Oral active NE TSMART mesylate 1 opine 2019 Table (Mental MG Oral Mesyla 04:00: t Health Tablet te 00 AM Associatio EDT n of [place] r) aripiprazol ARIPip 1.0 Oral active NE TSMART e 20 MG razole 2019 Table (Mental Oral Tablet 04:00: t Health 00 AM Associatio EDT n of [place] r) benztropine Benztr 1.0 Oral active NE TSMART mesylate opine 2019 Table (Mental 0.5 MG Oral Mesyla 04:00: t Heal th Tablet te 00 AM Associatio EDT n of [place]) aripiprazol ARIPip .0 Oral active NE TSMART e 10 MG razole 2019 Table (Mental Oral Tablet 04:00: t Health 00 AM [facility] benztropine Benztr .0 Oral active NE TSMART mesylate opine 2019 Table (Mental 0.5 MG Oral Mesyla 04:00: t Heal th Tablet te 00 AM Associatio EDT [facility]) aripiprazol ARIPip 1.0 Oral active NE TSMART e 10 MG razole 2019 Table (Mental Oral Tablet 04:00: t Health 00 AM Associatio EDT n [facility]) aripiprazol ARIPip .0 Oral active NE TSMART e 10 MG razole 2019 Table (Mental Oral Tablet 04:00: t Health 00 AM Associatio EDT [facility]) benztropine Benztr .0 Oral active NE TSMART mesylate opine 2019 Table (Mental 0.5 MG Oral Mesyla 04:00: t Heal th Tablet te 00 AM Associatio EDT n [facility]) aripiprazol ARIPip 1.0 Oral active NE TSMART e 20 MG razole 2019 Table (Mental Oral Tablet 04:00: t Health 00 AM Associatio EDT n [facility]) olanzapine OLANZa .0 Oral active NET SMART 10 MG Oral pine 2019 Table (Mental Tablet 04:00: t Health 00 AM Associatio EDT n [facility]) nabumetone nabume ORAL active take 1 N EXTGEN 500 MG Oral tone 2020 {tbl} tablet by (S aint Tablet 500 mg 12:00: oral route 2 J osephs nabumetone tablet 00 AM times every Medical 500 mg EDT day Center) tablet 8 HR Mapap ORAL active 8 HR NEXTGEN Acetaminoph Arthri 2020 {tbl} Acetaminop he (Saint en 650 MG tis 12:00: n 650 MG Dipesh phs Extended Pain 00 AM Extended Medica l Release 650 mg EST Release Oral Ce nter) Oral Tablet tablet Tablet [Mapap] ,exten [Mapap] Mapap ded Arthritis releas Pain 650 mg e tablet,exte nded release Cyclobenzap cyclob ORAL active take 1 NEXTGEN rine enzapr 2019 {tbl} tablet by (Saint hydrochlori ine 5 12:00: oral route Rosalina de 5 MG mg 00 AM every day Medica l Oral Tablet tablet EST Center ) cyclobenzap rine 5 mg tablet ferrous ferrou 06/25/ active take one NE XTGEN sulfate 325 s 2020 tablet twice (Saint MG Delayed sulfat 12:00: a day edita y Rosalina Release e 325 00 AM Medical Oral Tablet mg (65 EST Center ) ferrous mg sulfate 325 iron) mg (65 mg tablet iron) ,delay tablet,jerome ed yed release releas e Ergocalcife ergoca .00 ORAL active take 1 NEXTGEN rol [id number] lcifer 2019 {caps capsule by ( Saint UNT Oral ol 12:00: ule} oral route Robin ephs Capsule (vitam 00 AM every week Med ical ergocalcife in D2) EST Center ) rol 50,000 (vitamin unit D2) 50,000 capsul unit e capsule 200 ACTUAT ProAir 05/13/ active [id number] NEXTGEN Albuterol HFA 90 2020 200 ACTUAT (S aint 0.09 mcg/ac 12:00: Albuterol J Carlos s MG/ACTUAT tuatio 00 AM 0.09 Medical Metered n EST MG/ACTUAT Center) Dose aeroso Metered Dose Inhaler l Inhaler [ProAir] inhale [ProAir] ProAir HFA r 90 mcg/actuati on aerosol inhaler benztropine benztr ORAL complet take 1 NEXTGEN mesylate 1 opine 2018 {tbl} ed tablet by (S aint MG Oral 1 mg 12:00: oral route Dipesh phs Tablet tablet 00 AM every day Medic al benztropine EDT Center) 1 mg tablet aripiprazol Abilif .00 ORAL complet aripip razole NEXTGEN e 15 MG y 15 2018 {tbl} ed 15 MG Oral (Nagi t Oral Tablet mg 12:00: Tablet Dipesh phs [Abilify] tablet 00 AM [Abilify] Me dical Abilify 15 EDT Center) mg tablet Melatonin 5 melato 10/12/ active one tab at NEXTGEN MG Oral nazario 2018 night (Saint Capsule mg 12:00: Rosalina melatonin 5 capsul 00 AM Medic al mg capsule e EDT Center) Clozapine Clozar .00 ORAL complet Clozapin e NEXTGEN 100 MG Oral il 100 2019 {tbl} ed 100 MG Ora l (Saint Tablet mg 12:00: Tablet Rosalina [Clozaril] tablet 00 AM [Clozaril] Medical Clozaril EDT Center) 100 mg tablet Metronidazo Flagyl .0 active Flagyl 500 eCW3 le 500 MG 500 mg 2019 {tabl mg ([place] Oral Tablet 12:00: et} [place] [Flagyl] 00 AM Health Flagyl 500 EDT Care) mg Fluconazole Flucon .0 active Flucona zole eCW3 150 MG Oral azole 2019 {tabl 150 MG (Hud son Tablet 150 MG 12:00: et} [place] 00 AM Health EDT Care) ferrous ferrou ORAL active take 1 NEXT GEN sulfate 325 s 2019 {tbl} tablet by (S aint MG Oral sulfat 12:00: oral route 2 Rosalina Tablet e 325 00 AM times every Medi fernanda ferrous mg (65 EST day Center) sulfate 325 mg mg (65 mg iron) iron) tablet tablet Docusate Colace ORAL active Docusate N EXTGEN Sodium 100 100 mg 2018 {caps Sodium 100 (Saint MG Oral capsul 12:00: ule} MG Oral Jj hs Capsule e 00 AM Capsule Medical [Colace] EST [Colace] Center) Colace 100 mg capsule Glycopyrrol Glycop ORAL complet Glycop yrrola Saint ate 2 MG yrrola 2017 Table ed te - 2 MG Jaret cents Oral Tablet te - 2 12:00: t ORAL Tabl et Hospital MG 00 AM ORAL EST Tablet Melatonin Melato ORAL complet Melatoni n - Saint 10 MG Oral nazario - 2017 Capsu ed 10 MG ORAL V incents Capsule 10 MG 12:00: le Capsule Hospit al ORAL 00 AM Capsul EST e Clozapine Clozar ORAL complet Clozaril - Saint 100 MG Oral il - 2017 Table ed 100 MG ORAL [facility] Tablet 100 MG 12:00: t Tablet Hospita l [Clozaril] ORAL 00 AM Tablet EST Melatonin 5 melato 03/24/ active NE XTGEN MG Oral nazario 5 2018 (Saint Capsule mg 12:00: Rosalina melatonin 5 capsul 00 AM Medic al mg capsule e EST Center) 120 ACTUAT Advair RESPIR active 120 AC TUAT NEXTGEN Fluticasone HFA 2018 {puff ATORY Fluticasone (Saint propionate 115 12:00: } (INHAL propionate Rosalina 0.115 mcg-21 00 AM ATION) 0.115 Medical MG/ACTUAT / mcg/ac EST MG/ACTUAT / Center) salmeterol tuatio salmeterol 0.021 n 0.021 MG/ACTUAT aeroso MG/ACTUAT Metered l Metered Dose Dose inhale Inhaler Inhaler r [Advair] [Advair] Advair HFA 115 mcg-21 mcg/actuati on aerosol inhaler Nicotine 2 nicoti ORAL active chew 1 p iece NEXTGEN MG Chewing ne 2018 piece of gum by (Sa int Gum (polac 12:00: of oral route Jj hs nicotine rilex) 00 AM gum every 4 Medic al (polacrilex 2 mg EST hours as Cent er) ) 2 mg gum gum needed and as directed Azithromyci azithr .00 ORAL complet take 2 NEXTGEN n 250 MG omycin 2017 {tbl} ed tablet by (Sa int Oral Tablet 250 mg 12:00: oral rout e Rosalina azithromyci tablet 00 AM every day Medical n 250 mg EST for 1 day Center ) tablet then 1 tablet (250 mg) by oral route once daily for 4 days 24 HR Nicode .00 TRANSD active 24 HR NEXTG EN Nicotine rm CQ 2018 patch ERMAL Nicotine (Amilcar nt 0.583 MG/HR 14 12:00: 0.583 MG/HR Rosalina Transdermal mg/24 00 AM Transdermal Medical Patch hr EST System Center) [Nicoderm daily [Nicoderm C-Q] transd C-Q] Nicoderm CQ ermal 14 mg/24 hr patch daily transdermal patch 200 ACTUAT ProAir 02/23/ [id number] NEXTGEN Albuterol HFA 90 2018 ed 200 ACTUAT (S aint 0.09 mcg/ac 12:00: Albuterol J Carlos s MG/ACTUAT tuatio 00 AM 0.09 Medical Metered n EDT MG/ACTUAT Center) Dose aeroso Metered Dose Inhaler l Inhaler [ProAir] inhale [ProAir] ProAir HFA r 90 mcg/actuati on aerosol inhaler Glycopyrrol Glycop ORAL complet Glycop yrrola [facility] ate 2 MG yrrola 2017 Table ed te - 2 MG Jaret cents Oral Tablet te - 2 12:00: [facility] MG 00 AM ORAL EDT Tablet Clozapine Clozar ORAL complet Clozaril - [facility] 100 MG Oral 2017 Table ed 100 MG ORAL [facility] Tablet 100 MG 12:00: t Tablet Hospita l [Clozaril] ORAL 00 AM Tablet EDT Melatonin Melato ORAL complet Melatoni n - [facility] 10 MG Oral 2017 Capsu ed 10 MG ORAL [facility] Capsule 10 MG 12:00: le Capsule Hospit al ORAL 00 AM Capsul EDT e Glycopyrrol glycop NE XTGEN ate 2 MG yrrol2017 ([facility] Oral Tablet te 2 12:00: J Carlos s glycopyrrol mg 00 AM Medical ate 2 mg tablet EDT Center) tablet Melatonin Melato ORAL complet Melatoni n - [facility] 10 MG Oral 2017 Capsu ed 10 MG ORAL [facility] Capsule 10 MG 12:00: le Capsule Hospit al ORAL 00 AM Capsul EDT e Glycopyrrol Glycop ORAL complet Glycop yrrola [facility] ate 2 MG yrrola 2017 Table ed te - 2 MG Jaret cents Oral Tablet te - 2 12:00: [facility] MG 00 AM ORAL EDT Tablet multivitami multiv 12/31/ active take 1 NEXTGEN n tablet itamin 2018 tablet by (Amilcar nt 12:00: oral route Rosalina 00 AM every day Medical EDT with food Center) Clozapine clozap ORAL complet take 1 N EXTGEN 100 MG Oral ine 2018 {tbl} ed tablet by (S aint Tablet 100 mg 12:00: oral route 2 J osephs clozapine tablet 00 AM times every Medical 100 mg EDT day Center) tablet Magnesium magnes 12/31/ active 1 po q am NEXTGEN Oxide 400 ium 2017 with food (Nagi t MG Oral oxide 12:00: Rosalina Capsule 400 mg 00 AM Medical magnesium capsul EDT Center) oxide 400 e mg capsule Clozapine Clozar ORAL complet Clozaril - [facility] 100 MG Oral 2017 Table ed 100 MG ORAL [facility] Tablet 100 MG 12:00: t Tablet Hospita l [Clozaril] ORAL 00 AM Tablet EDT Melatonin Melato ORAL complet Melatoni n - [facility] 10 MG Oral 2017 Capsu ed 10 MG ORAL [facility] Capsule 10 MG 12:00: le Caps[facility] Hospit al ORAL 00 AM Capsul EDT e Glycopyrrol Glycop ORAL complet Glycop yrrola [facility] ate 2 MG yrrola 2017 Table ed te - 2 MG Jaret cents Oral Tablet te - 2 12:00: [facility] MG 00 AM ORAL EDT Tablet Glycopyrrol Glycop ORAL complet Glycop yrrola [facility] ate 2 MG yrrola 2017 Table ed te - 2 MG Jaret cents Oral Tablet te - 2 12:00: t [facility]AL [facility] MG 00 AM ORAL EDT Tablet Melatonin Melato ORAL complet Melatoni n - [facility] 10 MG Oral 2017 Capsu ed 10 MG ORAL [facility] Capsule 10 MG 12:00: le Capsule Hospit al ORAL 00 AM Capsul EDT e Clozapine Clozar ORAL complet Clozaril - [facility] 100 MG Oral 2017 Table ed 100 MG ORAL [facility] Tablet 100 MG 12:00: t Tablet Hospita l [Clozaril] ORAL 00 AM Tablet EDT 1.5 ML Invega INTRAM complet Invega Sa int paliperidon Susten 2018 Unit USCULA ed Sustenna - [facility] e palmitate na - 12:00: R 234 MG Hosp ital 156 MG/ML 234 MG 00 AM INTRAMUSCULA Prefilled INTRAM EDT R Syringe USCULA Suspension, [Invega] R Extended Suspen Release norma, Extend ed Releas e UNK 10/27/ suspend eC W3 Vitamins 2015 ed Vitamins ([place] (Dis) 12:00: (Dis) [place] 00 AM Health EDT Care) misoprostol complet [facility] Tablet [facility] clozapine complet [facility] 200 ACTUAT albute 2 complet Proventil [facility] Albuterol rol ed HFA [facility] 0.09 sulfat Medical MG/ACTUAT e Center Metered (Prove Dose ntil Inhaler HFA) [Proventil] 90 mcg albuterol HFA sulfate Aeroso (Proventil l HFA) 90 mcg Inhale HFA Aerosol r, Inhaler, Ordere Ordered By: d By: Guillermina Victoria MDDirection ch, s: 2 puff MDDire by ctions inhalation : 2 every six puff hours PRN by shortness inhala of breath tion every six hours PRN shortn ess of breath 200 ACTUAT [place] 2 complet Nagi t Albuterol rol ed Rosalina 0.09 sulfat Medical MG/ACTUAT e 90 Center Metered mcg Dose HFA Inhaler Aeroso albuterol l sulfate 90 Inhale mcg HFA r, Aerosol Ordere Inhaler, d By: Ordered By: Dary Scott PADirection a, s: 2 puff PADire by ctions inhalation : 2 every six puff hours PRN by shortness inhala of breath tion every six hours PRN shortn ess of breath Prednisone predni 1 complet Nagi t 20 MG Oral SONE ed Rosalina Tablet 20 mg Medical predniSONE Tablet Center 20 mg , Tablet, Ordere Ordered By: d By: vielka Beal PADavinash Foote s: 1 tablet a, oral daily PADire ctions : 1 tablet oral daily Amoxicillin amoxic 1 complet Amilcar nt 500 MG Oral illin ed Rosalina Tablet 500 mg Medical amoxicillin Tablet Center 500 mg , Tablet, Ordere Ordered By: d By: lovely Bennett FNPDsimon Nielson, ns: 1 FNPDir tablet oral ection every s: 1 twelve tablet hours oral every twelve hours Ciprofloxac ciprof 1 complet Amilcar nt in 500 MG loxaci ed Rosalina Oral Tablet n HCl Medical ciprofloxac 500 mg Center in HCl 500 Tablet mg Tablet, , Ordered By: Antwon nolasco By: Atr Huerta s: 1 tablet ch, oral twice MDDire a day ctions : 1 tablet oral twice a day clozapine 1 complet [facility] 100 mg ed Rosalina TabletDirec Medical tions: 1 Center tablet oral daily every morning Insurance Providers Payer name Policy type Policy ID Covered Covered alliance party's Policy P jeannie / Coverage alliance party ID relationship to Bhatti Inf ormation type bhatti [employer] [employer] [id number] SP [id number] NON CAP ALMA W [id number] 01 [id number] SELF PAY SP INSURANCE ALMA CARE W [id number] 01 [id number] [place] [id number] 01 [id number] [place] [id number] 01 [id number] AL[place] CARE W [id number] 01 [id number] [place] [id number] SP [id number] ALMA W [id number] 01 [id number] 300 W [id number] 01 [id number] SELF PAY 0 Self 0 MEDICAID OP [id number] Self [id number] [facility] ALMA [id number] Self [id number] CARE [place] Care [id number] S [id number] [place] Medicaid Medicaid [id number] S [id number] Regular Clinic Visit Dental [id number] S [id number] 300 Dentaquest MKD [place] Vision [id number] S [id number] MKD [place] Family [id number] S [id number] Planning MKD & EP 3 & 4 Only Problems, Conditions, and Diagnoses Code Display Name Description Problem Type Effective Data Sour ce(s) Dates [id number] Schizoaffective Schizoaffective Problem 10/02/2018 NEXT GEN ([facility] schizophrenia schizophrenia 12:00:00 AM [facility]) [id number] Schizoaffective Schizoaffective Problem 09/25/2018 NEXT GEN ([facility] disorder, bipolar disorder, bipolar 12:00:00 AM [facility]) [id number] Bipolar disorder Bipolar disorder Complaint 10/30/2017 Sa int [facility] (disorder) 12:00:00 PM Hospital EDT V22.1 Supervision of high , NORMAL Problem 4 eCW3 ([place] risk SUPERVISION 12:00:00 AM [facility]) V22.2 Patient currently PREG STATE, INITIAL Problem 1 eCW3 ([place] VISIT 12:00:00 AM [facility]) V22.1 Supervision of high , NORMAL Problem eCW3 ([place] risk SUPERVISION Replaced by [facility]) Z71.89 Other specified OTHER SPECIFIED Diagnosis 11/22/2019 Nagi Romano counseling COUNSELING 10:39:00 AM [facility] EDT Z70.8 Other sex OTHER SEX Diagnosis 11/22/2019 Rosalina counseling COUNSELING 10:39:00 AM Medical [facility] EDT Z68.29 Body mass index BODY MASS INDEX Diagnosis 11/22/2019 Nagi Romano (BMI) 29.0-29.9, (BMI) 29.0-29.9, 10:39:00 AM [facility] adult ADULT EDT N76.0 Acute vaginitis ACUTE VAGINITIS Diagnosis 11/22/2019 Nagi Romano 10:39:00 AM Medical [facility] EDT Z01.419 Encounter for ENCNTR FOR VALET CASHIER EXAM Diagnosis 11/05/2019 Sa kamilah Romano gynecological (GENERAL) (ROUTINE) 11:00:00 AM [facility] examination W/O ABN FINDINGS EDT (general) (routine) without abnormal findings Z71.82 Exercise counseling EXERCISE COUNSELING Diagnosis 020 [facility] [place] 11:00:00 AM [facility] EDT Z71.3 Dietary counseling DIETARY COUNSELING Diagnosis 0 [facility]ano and surveillance AND SURVEILLANCE 11:00:00 AM [facility] EDT Z68.28 Body mass index BODY MASS INDEX Diagnosis 11/05/2019 Nagi Romano (BMI) 28.0-28.9, (BMI) 28.0-28.9, 11:00:00 AM [facility] adult ADULT EDT R35.0 Frequency of FREQUENCY OF Diagnosis 11/05/2019 Dipesh phs micturition MICTURITION 11:00:00 AM Medical [facility] ter EDT Z12.4 Encounter for ENCOUNTER FOR Diagnosis 11/05/2019 [facility] Yeboah lyly screening for SCREENING FOR 11:00:00 AM [facility] malignant neoplasm MALIGNANT NEOPLASM EDT of cervix OF CERVIX J45.909 Unspecified asthma, UNSPECIFIED ASTHMA, Diagnosis [facility]ano uncomplicated UNCOMPLICATED 10:20:00 AM [facility] EDT R06.00 Dyspnea, DYSPNEA, Diagnosis 08/24/2019 [facility] [place] unspecified UNSPECIFIED 10:20:00 AM Medical [facility] ter EDT Z68.31 Body mass index BODY MASS INDEX Diagnosis 07/06/2019 Nagi Romano (BMI) 31.0-31.9, (BMI) 31.0-31.9, 10:25:00 AM [facility] adult ADULT EDT M54.5 Low back pain LOW BACK PAIN Diagnosis 07/06/2019 Edilia desouza 10:25:00 AM Medical Cente r EDT Z68.33 Body mass index BODY MASS INDEX Diagnosis 06/25/2019 Nagi Romano (BMI) 33.0-33.9, (BMI) 33.0-33.9, 02:21:00 PM [facility] adult ADULT EST Z23 Encounter for ENCOUNTER FOR Diagnosis 06/25/2019 Edilia desouza immunization IMMUNIZATION 02:21:00 PM Medical C enter EST E55.9 Vitamin D VITAMIN D Diagnosis 06/25/2019 [facility] [place] deficiency, DEFICIENCY, 02:21:[address] unspecified UNSPECIFIED EST D64.9 Anemia, unspecified ANEMIA, UNSPECIFIED Diagnosis 020 [facility] [place] 02:21:00 PM Medical Cente r EST J03.00 Acute streptococcal ACUTE STREPTOCOCCAL Diagnosis 020 [facility] [place] tonsillitis, TONSILLITIS, 03:50:00 PM Medical C enter unspecified UNSPECIFIED EST R50.9 Fever, unspecified FEVER, UNSPECIFIED Diagnosis 0 [facility] [place] 03:50:00 PM Medical Cente r EST Z68.34 Body mass index BODY MASS INDEX Diagnosis 05/13/2019 Nagi Romano (BMI) 34.0-34.9, (BMI) 34.0-34.9, 12:31:00 PM [facility] adult ADULT EST Z02.83 Encounter for ENCOUNTER FOR Diagnosis 05/13/2019 [facility] Edilia desouza blood-alcohol and BLOOD-ALCOHOL AND 12:31:00 PM Medical Center blood-drug test BLOOD-DRUG TEST EST Z11.1 Encounter for ENCOUNTER FOR Diagnosis 05/13/2019 [facility] Edilia desouza screening for SCREENING FOR 12:31:00 PM Medical Center respiratory RESPIRATORY EST tuberculosis TUBERCULOSIS F25.0 Schizoaffective SCHIZOAFFECTIVE Diagnosis 05/13/2019 Nagi Romano disorder, bipolar DISORDER, BIPOLAR 12:31:00 PM Medical Center type TYPE EST Z00.00 Encounter for ENCNTR FOR GENERAL Diagnosis 05/13/2019 Amilcar Romano general adult ADULT MEDICAL EXAM 12:31:00 PM [facility] medical examination W/O ABNORMAL EST without abnormal FINDINGS findings Z11.4 Encounter for ENCOUNTER FOR Diagnosis 03/26/2019 [facility] Edilia desouza screening for human SCREENING FOR HUMAN 10:03:0 0 AM Medical Center immunodeficiency IMMUNODEFICIENCY EST virus [HIV] VIRUS R42 Dizziness and DIZZINESS AND Diagnosis 03/26/2019 [facility] Edilia desouza giddiness GIDDINESS 10:03:00 AM Medical Cente r EST R11.0 Nausea NAUSEA Diagnosis 03/26/2019 [facility] Romano 10:03:00 AM Medical Cente r EST J40 Bronchitis, not BRONCHITIS, NOT Diagnosis 02/16/2019 Nagi Romano specified as acute SPECIFIED ACUTE 11:16:00 AM Medical Center or chronic OR CHRONIC EDT A64 Unspecified UNSPECIFIED Diagnosis 02/16/2019 [facility] J Carlos johnston sexually SEXUALLY 11:16:00 AM Medical [place] r transmitted disease TRANSMITTED DISEASE EDT F10.129 Alcohol abuse with ALCOHOL ABUSE WITH Diagnosis 9 [facility] intoxication, INTOXICATION, 10:21:00 PM Medical Center unspecified UNSPECIFIED EDT N39.0 Urinary tract URINARY TRACT Diagnosis 09/24/2018 [facility] Edilia desouza infection, site not INFECTION, SITE NOT 10:37:0 0 AM Medical Center specified SPECIFIED EDT R30.0 Dysuria Dysuria Diagnosis 06/26/2018 R[place]OL[place] 03:51:23 PM ([facility]) Z32.02 Encounter for Encounter for Diagnosis 06/26/2018 [place] test, test, 03:51:23 PM ([facility] [place] result negative result negative [facility]) Z87.440 Personal history of Personal history of Diagnosis 019 [place] urinary (tract) urinary (tract) 03:51:23 PM ([facility] [place] infections infections [facility]) 296.44 BIPOLAR I DISORDER Bipolar disorder, Diagnosis 05/01/2012 [facility] Larios MOST RECENT EPISODE manic, severe w 10:00:00 AM Hospital (OR CURRENT) MANIC psychotic EST SEVERE SPECIFIED WITH PSYCHOTIC BEHAVIOR Surgeries/Procedures Procedure Description Date Indications Data Source(s) OFFICE/OUTPATIENT VISIT, 11/22/2019 NEX TGEN ([facility] EST 12:00:00 AM EDT [facility] - 11/22/2019 Center) 12:00:00 AM EDT OFFICE/OUTPATIENT VISIT, 11/05/2019 NEX TGEN ([facility] EST 12:00:00 AM EDT [facility] - 11/05/2019 [place]) 12:00:00 AM EDT SPECIMEN HANDLING 11/05/2019 NEXTGEN (S aint 12:00:00 AM EDT [facility] - 11/05/2019 [place]) 12:00:00 AM EDT OFFICE/OUTPATIENT VISIT, 07/06/2019 NEX TGEN ([facility] 12:00:00 AM EDT [facility] - 07/06/2019 [place]) 12:00:00 AM EDT OFFICE/OUTPATIENT VISIT, 06/25/2019 NEX TGEN ([facility] 12:00:00 AM EST [facility] - 06/25/2019 [place]) 12:00:00 AM EST TDAP VACCINE >7 IM 06/25/2019 NEXTGEN ( [facility] 12:00:00 AM EST [facility] - 06/25/2019 [place]) 12:00:00 AM EST Immunization 06/25/2019 NEXTGEN ([facility] 12:00:00 AM EST [facility] - 06/25/2019 [place]) 12:00:00 AM EST Psychiatric Diagnostic 06/02/2019 NEXTG EN ([facility] Interview (45+ Min) 12:00:00 [facility]) 12:00:00 AM EST Well Visit, 05/13/2019 NEXTGEN ([facility],18-39years 12:00:00 AM EST [facility] - 05/13/2019 [place]) 12:00:00 AM EST Influenza, Injectable, 3 05/13/2019 NEX TGEN ([facility] Yrs Or Older 12:00:00 AM EST [facility] - 05/13/2019 [place]) 12:00:00 AM EST Immunization 05/13/2019 NEXTGEN ([facility] Administration 12:00:00 AM EST [facility] dicnj - 05/13/2019 [place]) 12:00:00 AM EST ROUTINE VENIPUNCTURE 05/13/2019 NEXTGEN ([facility] 12:00:00 AM [facility] - 05/13/2019 [place]) 12:00:00 AM EST Initial Eval W/ Med 10/12/2018 NEXTGEN ([facility] Services 12:00:00 AM EDT [facility] - 10/12/2018 [place]) 12:00:00 AM EDT OFFICE/OUTPATIENT VISIT, 05/11/2018 NEX TGEN ([facility] EST 12:00:00 AM EST [facility] - 05/11/2018 Center) 12:00:00 AM EST OFFICE/OUTPATIENT VISIT, 04/23/2018 NEX TGEN ([facility] EST 12:00:00 AM EST [facility] - 04/23/2018 Center) 12:00:00 AM EST OFFICE/OUTPATIENT VISIT, 03/24/2018 NEX TGEN ([facility] EST 12:00:00 AM EST [facility] - 03/24/2018 Center) 12:00:00 AM EST OFFICE/OUTPATIENT VISIT, 03/10/2018 NEX TGEN ([facility] EST 12:00:00 AM EST [facility] - 03/10/2018 Center) 12:00:00 AM EST Results ID Date Data Source [id number] 01/14/2020 12:40:00 PM EDT [facility] Name Value Range Interpretation Description Data Sup porting Code Source(s) Document(s ) Thyrotropin 0.465-4. <content [facility] [Units/volume] 68 styleCode="Pantera Rosalina in Serum or d">Thyroid Medical Plasma by [facility] Center Detection Hormone limit <= 0.05 </content>2.64 mIU/L MIU/L<content styleCode="Vielka lics"> (0.465-4.68 MIU/L)</conten t> Thyroxine (T4) 0.78-2.1 <content [facility] free 9 styleCode="Pantera Rosalina [Mass/volume] d">T4 Free Medical in Serum or </content>0.98 Center Plasma NG/DL<content styleCode="Vielka lics"> (0.78-2.19 NG/DL)</conten t> ID Date Data Source [id number] 01/14/2020 12:40:00 PM EDT [facility] 0400 Name Value Range Interpretation Description Data Sup porting Code Source(s) Document(s ) Hemoglobin 12.3-16. Below low normal <content Saint [Mass/volume] in 0 styleCode="Bold Rosalina Blood ">Hemoglobin Medical </content>10.4 Center G/DL L<content styleCode="Ital ics"> (12.3-16.0 G/DL)</content> Erythrocytes 4.0-5.1 <content [facility] [#/volume] in styleCode="Bold Rosalina Blood by ">Red Blood Medical Automated count Cell Count Center </content>4.54 MCUMM<content styleCode="Ital ics"> (4.0-5.1 MCUMM)</content > Leukocytes 4.4-11.0 <content [facility] [#/volume] in styleCode="Bold Rosalina Blood by ">White Blood Medical Automated count Cell Count Center </content>5.03 KCUMM<content styleCode="Ital ics"> (4.4-11.0 KCUMM)</content > Erythrocyte 11.5-14. Above high <content [facility] distribution 5 normal styleCode="Bold Rosalina width [Ratio] by ">Red Cell Medical Automated count Distribution Center Width </content>18.0 % H<content styleCode="Ital ics"> (11.5-14.5 %)</content> Hematocrit 36.0-46. Below low normal <content [facility] [Volume 0 styleCode="Bold Rosalina Fraction] of ">Hematocrit Medical Blood by </content>32.6 Center Automated count % L<content styleCode="Ital ics"> (36.0-46.0 %)</content> Erythrocyte mean 80.0-100 <content [facility] corpuscular .0 styleCode="Bold Rosalina volume [Entitic ">Mean Medical volume] by Corpuscular Center Automated count Volume </content>71.8 FL<content styleCode="Ital ics"> (80.0-100.0 FL)</content> Erythrocyte mean 26.0-34. Below low normal <content [facility] corpuscular 0 styleCode="Bold Rosalina hemoglobin ">Mean Medical [Entitic mass] Corposcular Center by Automated Hemoglobin count </content>22.9 PG L<content styleCode="Ital ics"> (26.0-34.0 PG)</content> Erythrocyte mean 32.0-37. Below low normal <content [facility] corpuscular 0 styleCode="Bold Rosalina hemoglobin ">Mean Corpus. Medical concentration Hgb Center [Mass/volume] by Concentration Automated count (MCHC) </content>31.9 G/DL L<content styleCode="Ital ics"> (32.0-37.0 G/DL)</content> UNK 1.6-7.3 <content Saint styleCode="Bold Rosalina ">Neutrophil Medical Count Center </content>2.97 KCUMM<content styleCode="Ital ics"> (1.6-7.3 KCUMM)</content > Platelets 130-400 <content Saint [#/volume] in styleCode="Bold Rosalina Blood by ">Platelet Medical Automated count Count Center </content>313 KCUMM<content styleCode="Ital ics"> (130-400 KCUMM)</content > Platelet mean 8.0-11.0 <content [facility] volume [Entitic styleCode="Bold Rosalina volume] in Blood ">Mean Platelet Medical by Automated Volume Center count </content>9.9 FL<content styleCode="Ital ics"> (8.0-11.0 FL)</content> Neutrophils 36-66 <content Saint [#/volume] in styleCode="Bold Rosalina Blood by ">Neutrophil Medical Automated count </content>59.1 Center %<content styleCode="Ital ics"> (36-66 %)</content> Lymphocytes 24.0-44. <content Saint [#/volume] in 0 styleCode="Bold Rosalina Blood by ">Lymphocyte Medical Automated count </content>28.4 Center %<content styleCode="Ital ics"> (24.0-44.0 %)</content> UNK 0.2-0.9 <content Saint styleCode="Bold Rosalina ">Monocyte Medical Count Center </content>0.57 KCUMM<content styleCode="Ital ics"> (0.2-0.9 KCUMM)</content > UNK 0.0-0.6 <content Saint styleCode="Bold Rosalina ">Eosinophil Medical Count Center </content>0.03 KCUMM<content styleCode="Ital ics"> (0.0-0.6 KCUMM)</content > Monocytes 3.0-10.0 Above high <content Saint [#/volume] in normal styleCode="Bold Rosalina Blood by ">Monocyte Medical Automated count </content>11.3 Center % H<content styleCode="Ital ics"> (3.0-10.0 %)</content> Eosinophils 0-5.0 <content Saint [#/volume] in styleCode="Bold Rosalina Blood by ">Eosinophil Medical Automated count </content>0.6 Center %<content styleCode="Ital ics"> (0-5.0 %)</content> UNK 1.0-4.8 <content Saint styleCode="Bold Rosalina ">Lymphocyte Medical Count Center </content>1.43 KCUMM<content styleCode="Ital ics"> (1.0-4.8 KCUMM)</content > UNK 0.0 <content Saint styleCode="Bold Rosalina ">Nucleated Red Medical Blood Cell Center Count </content>0.00 KCUMM<content styleCode="Ital ics"> (0.0 KCUMM)</content > UNK 0-0.1 <content Saint styleCode="Bold Rosalina ">Immature Medical Granulocyte Center Count </content>0.01 KCUMM<content styleCode="Ital ics"> (0-0.1 KCUMM)</content > UNK < 1 <content Saint styleCode="Bold Rosalina ">Immature Medical Granulocyte Center Ratio </content>0.2 %<content styleCode="Ital ics"> (< 1 %)</content> UNK 0.0-0.3 <content Saint styleCode="Bold Rosalina ">Basophil Medical Count Center </content>0.02 KCUMM<content styleCode="Ital ics"> (0.0-0.3 KCUMM)</content > Basophils 0.0-1.0 <content Saint [#/volume] in styleCode="Bold Rosalina Blood by ">Basophil Medical Automated count </content>0.4 Center %<content styleCode="Ital ics"> (0.0-1.0 %)</content> UNK 0 <content Saint styleCode="Bold Rosalina ">Nucleated Red Medical Blood Cell Center </content>0.0 /100<content styleCode="Ital ics"> (0 /100)</content> ID Date Data Source GFR(Creatinine).[id number] 01/14/2020 12:40:00 PM EDT [facility] 0-0400 Name Value Range Interpretation Code Description Data Jihan rce(s) Supporting Document(s ) UNK > 60 <content [facility] styleCode="Bold"> Medical Cent er EGFR </content>204 GFR<content styleCode="Italic s"> (> 60 GFR)</content> ID Date Data Source [id number] 01/14/2020 12:40:00 PM EDT [facility] Name Value Range Interpretation Description Data Sup porting Code Source(s) Document(s ) Sodium 137-145 Below low normal <content Saint [Moles/volume] styleCode="Pantera Rosalina in Serum or d">Sodium Medical Plasma </content>134 Center MEQ/L L<content styleCode="Vielka lics"> (137-145 MEQ/L)</conten t> Potassium 3.5-5.3 <content [facility] [Moles/volume] styleCode="Pantera Rosalina in Serum or d">Potassium Medical Plasma </content>4.3 Center MEQ/L<content styleCode="Vielka lics"> (3.5-5.3 MEQ/L)</conten t> Chloride 98-107 <content Saint [Moles/volume] styleCode="Patnera Rosalnia in Serum or d">Chloride Medical Plasma </content>104 Center MEQ/L<content styleCode="Vielka lics"> (98-107 MEQ/L)</conten t> Glucose 74-106 <content Saint [Mass/volume] styleCode="Pantera Ros[place] in Serum or d">Glucose Medical Plasma </content>91 Center MG/DL<content styleCode="Vielka lics"> (74-106 MG/DL)</conten t> UNK 7-17 Below low normal <content Saint styleCode="Pantera Rosalina d">BUN Medical </content>6 Center MG/DL L<content styleCode="Vielka lics"> (7-17 MG/DL)</conten t> Calcium 8.4-10.2 <content Saint [Mass/volume] styleCode="Pantera [place] in Serum or d">Calcium Medical Plasma </content>9.3 Center MG/DL<content styleCode="Vielka lics"> (8.4-10.2 MG/DL)</conten t> Creatinine 0.5-1.3 Below low normal <content [facility] [Mass/volume] styleCode="Pantera Rosalina in Serum or d">Creatinine Medical Plasma </content>0.4 Center MG/DL L<content styleCode="Vielka lics"> (0.5-1.3 MG/DL)</conten t> Carbon 22-30 <content [facility] dioxide, total styleCode="Pantera [place] [Moles/volume] d">Carbon Medical in Serum or Dioxide Center Plasma </content>24 MEQ/L<content styleCode="Vielka lics"> (22-30 MEQ/L)</conten t> UNK > 60 <content Saint styleCode="Pantera [place] d">EGFR Medical </content>204 Center GFR<content styleCode="Vielka lics"> (> 60 GFR)</content> ID Date Data Source [id number] 11/05/2019 12:30:00 PM EDT [facility] 0 Name Value Range Interpretation Description Data Sup porting Code Source(s) Document(s ) UNK CLEAR <content Saint styleCode="Pantera Rosalina d">Urine Medical Clarity Center </content>SD R <content styleCode="Vielka lics"> (CLEAR )</content> Color of Urine YELLOW <content [facility] styleCode="Pantera Whitmans d">Color, Medical Urine Center </content>YELL OW <content styleCode="Vielka lics"> (YELLOW )</content> Hemoglobin NEGATIVE <content Saint [Presence] in styleCode="Pantera Romano Urine by Test d">Urine Blood Medical strip </content>NEGA Center TIVE <content styleCode="Vielka lics"> (NEGATIVE )</content> Specific 1.015-1.02 <content Saint gravity of 5 styleCode="Pantera Romano Urine by Test d">Urine Medical strip Specific Center [place] </content>1.01 5 <content styleCode="Vielka lics"> (1.015-1.025 )</content> UNK NEGATIVE <content Saint styleCode="Pantera [place] d">Urine Medical Bilirubin Center </content>NEGA TIVE <content styleCode="Vielka lics"> (NEGATIVE )</content> Ketones NEGATIVE <content Saint [Mass/volume] styleCode="Pantera Romano in Urine by d">Urine Medical Test strip Ketone Center </content>NEGA TIVE MG/DL<content styleCode="Vielka lics"> (NEGATIVE MG/DL)</conten t> Glucose NEGATIVE <content [facility] [Mass/volume] styleCode="Pantera Whitmans in Urine by d">Urine Medical Test strip Glucose Center </content>NEGA TIVE MG/DL<content styleCode="Vielka lics"> (NEGATIVE MG/DL)</conten t> Protein NEGATIVE <content Saint [Mass/volume] styleCode="Pantera Whitmans in Urine by d">Urine Medical Test strip Protein Center </content>NEGA TIVE MG/DL<content styleCode="Vielka lics"> (NEGATIVE MG/DL)</conten t> Nitrite NEGATIVE <content [facility] [Presence] in styleCode="Pantera Romano Urine by Test d">Urine Medical strip Nitrite Center </content>NEGA TIVE <content styleCode="Vielka lics"> (NEGATIVE )</content> pH of Urine by 4.5-8.0 Above high <content Saint Test strip normal styleCode="Pantera Whitmans d">Urine pH Medical </content>8.5 Center H<content styleCode="Vielka lics"> (4.5-8.0 )</content> Urobilinogen 0.2-1.0 <content Saint [Units/volume] styleCode="Pantera Whitmans in Urine by d">Urine Medical Test strip Urobilinogen Center </content>0.2 MG/DL<content styleCode="Vielka lics"> (0.2-1.0 MG/DL)</conten t> Leukocyte NEGATIVE <content Saint esterase styleCode="Pantera [place] [Presence] in d">Urine Medical Urine by Test Leukocyte Center strip </content>NEGA TIVE <content styleCode="Vielka lics"> (NEGATIVE )</content> ID Date Data Source Microbiology.[id number] 11/05/2019 12:30:00 PM EDT [facility] 400 Name Value Range Interpretation Code Description Data Jihan rce(s) Supporting Document(s ) UNK <item><content [facility] Romano styleCode="Bold"> Medical Cent er Culture Status </content>
<t able><tbody><tr>< td>Specimen Number:</td><td>[id number]</td></tr ><tr><td>Sample Collection Date/Time: </td><td> 0 12:30 PM</td></tr><tr>< td>Specimen Source:</td><td>U RINE BLADDER</td></tr> <tr><td>Culture Status:</td><td>P reliminary </td></tr><tr><td >Culture Report:</td><td>C ulture in progress </td></tr><tr><td >Urine Culture:</td><td> Collection Plate Date: 11/05/2019 13:33 </td></tr></tbody ></table></item> UNK <item><content [place] styleCode="Bold"> Medical Cent er Culture Report </content>
<t able><tbody><tr>< td>Specimen Number:</td><td>[id number]</td></tr ><tr><td>Sample Collection Date/Time: </td><td> 0 12:30 PM</td></tr><tr>< td>Specimen Source:</td><td>U RINE BLADDER</td></tr> <tr><td>Urine Culture:</td><td> Collection Plate Date: 11/05/2019 13:33 </td></tr><tr><td >Culture Status:</td><td>P reliminary </td></tr><tr><td >Culture Report:</td><td>C ulture in progress </td></tr></tbody ></table></item> ID Date Data Source Urinalysis.[id number] 08/24/2019 11:30:00 AM EDT [facility] 0 Name Value Range Interpretation Description Data Sup porting Code Source(s) Document(s ) Color of Urine YELLOW <content [facility] styleCode="Pantera [place] d">Color, Medical Urine Center </content>YELL OW <content styleCode="Vielka lics"> (YELLOW )</content> UNK NEGATIVE <content Saint styleCode="Pantera [place] d">Urine Medical Bilirubin Center </content>NEGA TIVE <content styleCode="Veilka lics"> (NEGATIVE )</content> Ketones NEGATIVE <content Saint [Mass/volume] styleCode="Pantera Romano in Urine by d">Urine Medical Test strip Ketone Center </content>TRAC E MG/DL<content styleCode="Vielka lics"> (NEGATIVE MG/DL)</conten t> UNK CLEAR <content Saint styleCode="Pantera [place] d">Urine Medical Clarity Center </content>SD R <content styleCode="Vielka lics"> (CLEAR )</content> Glucose NEGATIVE <content [facility] [Mass/volume] styleCode="Pantera Whitmans in Urine by d">Urine Medical Test strip Glucose Center </content>NEGA TIVE MG/DL<content styleCode="Vielka lics"> (NEGATIVE MG/DL)</conten t> Hemoglobin NEGATIVE <content [facility] [Presence] in styleCode="Pantera Whitmans Urine by Test d">Urine Blood Medical strip </content>SMAL Center L <content styleCode="Vielka lics"> (NEGATIVE )</content> pH of Urine by 4.5-8.0 <content Saint Test strip styleCode="Pantera [place] d">Urine pH Medical </content>7.0 Center <content styleCode="Vielka lics"> (4.5-8.0 )</content> Specific 1.015-1.02 <content [facility] gravity of 5 styleCode="Pantera [place] Urine by Test d">Urine Medical strip Specific Center [place] </content>1.02 0 <content styleCode="Vielka lics"> (1.015-1.025 )</content> Protein NEGATIVE <content [facility] [Mass/volume] styleCode="Pantera [place] in Urine by d">Urine Medical Test strip Protein Center </content>TRAC E MG/DL<content styleCode="Vielka lics"> (NEGATIVE MG/DL)</conten t> Urobilinogen 0.2-1.0 <content [facility] [Units/volume] styleCode="Pantera [place] in Urine by d">Urine Medical Test strip Urobilinogen Center </content>0.2 MG/DL<content styleCode="Vielka lics"> (0.2-1.0 MG/DL)</conten t> Leukocyte NEGATIVE <content [facility] esterase styleCode="Pantera [place] [Presence] in d">Urine Medical Urine by Test Leukocyte Center strip </content>NEGA TIVE <content styleCode="Vielka lics"> (NEGATIVE )</content> UNK 0-3 <content Saint styleCode="Pantera [place] d">Urine Red Medical Blood Cell Center </content>3-5 HPF<content styleCode="Vielka lics"> (0-3 HPF)</content> Nitrite NEGATIVE <content [facility] [Presence] in styleCode="Pantera [place] Urine by Test d">Urine Medical strip Nitrite Center </content>NEGA TIVE <content styleCode="Vielka lics"> (NEGATIVE )</content> UNK 0-3 <content Saint styleCode="Pantera [place] d">Urine White Medical Blood Cell Center </content>0-3 HPF<content styleCode="Vielka lics"> (0-3 HPF)</content> ID Date Data Source Liver 08/24/2019 11:00:[address] [facility] [place] Profile.[id number] Name Value Range Interpretation Description Data Sup porting Code Source(s) Document(s ) Aspartate 14-36 <content [facility] aminotransferase styleCode="Bold"> Jj hs [Enzymatic Aspartate Medical activity/volume] Aminotransferase Center in Serum or Plasma (AST) </content>24 IU/L<content styleCode="Italic s"> (14-36 IU/L)</content> Alanine 7-30 <content [facility] aminotransferase styleCode="Bold"> Jj hs [Enzymatic Alanine Medical activity/volume] Aminotransferase Center in Serum or Plasma (ALT) </content>13 IU/L<content styleCode="Italic s"> (7-30 IU/L)</content> Albumin 3.5-5.0 <content [facility] [Mass/volume] in styleCode="Bold"> Jj hs Serum or Plasma Albumin Medical </content>4.7 Center G/DL<content styleCode="Italic s"> (3.5-5.0 G/DL)</content> Bilirubin.total 0.2-1.3 <content [facility] [Mass/volume] in styleCode="Bold"> Jj hs Serum or Plasma Bilirubin Total Medical </content>0.5 Center MG/DL<content styleCode="Italic s"> (0.2-1.3 MG/DL)</content> Alkaline 38-126 <content [facility] phosphatase styleCode="Bold"> [place] [Enzymatic Alkaline Medical activity/volume] Phosphatase (ALP) Cente r in Serum or Plasma </content>80 IU/L<content styleCode="Italic s"> (38-126 IU/L)</content> ID Date Data Source HematologySpeci.[id number] 08/24/2019 11:00:00 AM EDT [facility] 0-0400 Name Value Range Interpretation Description Data Sup porting Code Source(s) Document(s ) C reactive < 3.0 <content [facility] [place] protein styleCode="Bold Medical [Mass/volume ">C-Reactive Center ] in Serum Protein or Plasma </content>2.31 MG/L<content styleCode="Ital ics"> (< 3.0 MG/L)</content> ID Date Data Source HematologyRou.[id number] 08/24/2019 11:00:00 AM EDT [facility] 0400 Name Value Range Interpretation Description Data Sup porting Code Source(s) Document(s ) Leukocytes 4.4-11.0 <content Saint [#/volume] in styleCode="Bold [place] Blood by ">White Blood Medical Automated count Cell Count Center </content>7.69 KCUMM<content styleCode="Ital ics"> (4.4-11.0 KCUMM)</content > Erythrocytes 4.0-5.1 <content Saint [#/volume] in styleCode="Bold [place] Blood by ">Red Blood Medical Automated count Cell Count Center </content>5.03 MCUMM<content styleCode="Ital ics"> (4.0-5.1 MCUMM)</content > Hemoglobin 12.3-16. Below low normal <content Saint [Mass/volume] in 0 styleCode="Bold [place] Blood ">Hemoglobin Medical </content>11.5 Center G/DL L<content styleCode="Ital ics"> (12.3-16.0 G/DL)</content> Erythrocyte mean 80.0-100 <content [facility] corpuscular .0 styleCode="Bold [place] volume [Entitic ">Mean Medical volume] by Corpuscular Center Automated count Volume </content>72.8 FL<content styleCode="Ital ics"> (80.0-100.0 FL)</content> Erythrocyte 11.5-14. Above high <content [facility] distribution 5 normal styleCode="Bold [place] width [Ratio] by ">Red Cell Medical Automated count Distribution Center Width </content>16.2 % H<content styleCode="Ital ics"> (11.5-14.5 %)</content> Erythrocyte mean 32.0-37. Below low normal <content [facility] corpuscular 0 styleCode="Bold [place] hemoglobin ">Mean Corpus. Medical concentration Hgb Center [Mass/volume] by Concentration Automated count (MCHC) </content>31.4 G/DL L<content styleCode="Ital ics"> (32.0-37.0 G/DL)</content> Hematocrit 36.0-46. <content Saint [Volume 0 styleCode="Bold [place] Fraction] of ">Hematocrit Medical Blood by </content>36.6 Center Automated count %<content styleCode="Ital ics"> (36.0-46.0 %)</content> Erythrocyte mean 26.0-34. Below low normal <content [facility] corpuscular 0 styleCode="Bold [place] hemoglobin ">Mean Medical [Entitic mass] Corposcular Center by Automated Hemoglobin count </content>22.9 PG L<content styleCode="Ital ics"> (26.0-34.0 PG)</content> Platelet mean 8.0-11.0 <content Saint volume [Entitic styleCode="Bold [place] volume] in Blood ">Mean Platelet Medical by Automated Volume Center count </content>9.5 FL<content styleCode="Ital ics"> (8.0-11.0 FL)</content> Neutrophils 36-66 Above high <content Saint [#/volume] in normal styleCode="Bold [place] Blood by ">Neutrophil Medical Automated count </content>72.1 Center % H<content styleCode="Ital ics"> (36-66 %)</content> UNK 1.6-7.3 <content Saint styleCode="Bold [place] ">Neutrophil Medical Count Center </content>5.55 KCUMM<content styleCode="Ital ics"> (1.6-7.3 KCUMM)</content > Platelets 130-400 <content Saint [#/volume] in styleCode="Bold [place] Blood by ">Platelet Medical Automated count Count Center </content>348 KCUMM<content styleCode="Ital ics"> (130-400 KCUMM)</content > Monocytes 3.0-10.0 <content Saint [#/volume] in styleCode="Bold [place] Blood by ">Monocyte Medical Automated count </content>5.5 Center %<content styleCode="Ital ics"> (3.0-10.0 %)</content> UNK 0.2-0.9 <content Saint styleCode="Bold [place] ">Monocyte Medical Count Center </content>0.42 KCUMM<content styleCode="Ital ics"> (0.2-0.9 KCUMM)</content > UNK 1.0-4.8 <content Saint styleCode="Bold [place] ">Lymphocyte Medical Count Center </content>1.67 KCUMM<content styleCode="Ital ics"> (1.0-4.8 KCUMM)</content > Lymphocytes 24.0-44. Below low normal <content Saint [#/volume] in 0 styleCode="Bold [place] Blood by ">Lymphocyte Medical Automated count </content>21.7 Center % L<content styleCode="Ital ics"> (24.0-44.0 %)</content> UNK 0.0-0.3 <content Saint styleCode="Bold [place] ">Basophil Medical Count Center </content>0.03 KCUMM<content styleCode="Ital ics"> (0.0-0.3 KCUMM)</content > Basophils 0.0-1.0 <content Saint [#/volume] in styleCode="Bold [place] Blood by ">Basophil Medical Automated count </content>0.4 Center %<content styleCode="Ital ics"> (0.0-1.0 %)</content> Eosinophils 0-5.0 <content Saint [#/volume] in styleCode="Bold [place] Blood by ">Eosinophil Medical Automated count </content>0.0 Center %<content styleCode="Ital ics"> (0-5.0 %)</content> UNK 0 <content Saint styleCode="Bold [place] ">Nucleated Red Medical Blood Cell Center </content>0.0 /100<content styleCode="Ital ics"> (0 /100)</content> UNK 0.0-0.6 <content Saint styleCode="Bold [place] ">Eosinophil Medical Count Center </content>0.00 KCUMM<content styleCode="Ital ics"> (0.0-0.6 KCUMM)</content > UNK < 1 <content Saint styleCode="Bold [place] ">Immature Medical Granulocyte Center Ratio </content>0.3 %<content styleCode="Ital ics"> (< 1 %)</content> UNK 0.0 <content Saint styleCode="Bold [place] ">Nucleated Red Medical Blood Cell Center Count </content>0.00 KCUMM<content styleCode="Ital ics"> (0.0 KCUMM)</content > UNK 0-0.1 <content Saint styleCode="Bold [place] ">Immature Medical Granulocyte Center Count </content>0.02 KCUMM<content styleCode="Ital ics"> (0-0.1 KCUMM)</content > ID Date Data Source GFR(Creatinine).[id number] 08/24/2019 11:00:00 AM EDT [facility] 0-0400 Name Value Range Interpretation Code Description Data Jihan rce(s) Supporting Document(s ) UNK > 60 <content [facility] styleCode="Bold"> Medical Cent er EGFR </content>128 GFR<content styleCode="Italic s"> (> 60 GFR)</content> ID Date Data Source Coagulation 08/24/2019 11:00:00 AM [facility] Center Rout.[id number] EDT Name Value Range Interpretation Description Data Sup porting Code Source(s) Document(s ) INR in 0.80-1.2 Above high normal <content Saint Platelet poor 0 styleCode="Bold" [place] plasma by >INR Medical Coagulation </content>1.21 # Center assay H<content styleCode="Itali cs"> (0.80-1.20 #)</content> UNK 9.0-13.0 Above high normal <content Saint styleCode="Bold" [place] >Protime Medical </content>13.4 Center SEC H<content styleCode="Itali cs"> (9.0-13.0 SEC)</content> aPTT in 25.1-36. <content Saint Platelet poor 5 styleCode="Bold" [place] plasma by >Partial Medical Coagulation Thromboplastin Center assay Time </content>31.8 SEC<content styleCode="Itali cs"> (25.1-36.5 SEC)</content> UNK <content Saint styleCode="Bold" [place] >D-Dimer Medical </content><200 Center ngFEU (Reference Range: not available)
ID Date Data Source CHMROUTINECCDA.[id number] 08/24/2019 11:00:00 AM EDT [facility] Name Value Range Interpretation Description Data Sup porting Code Source(s) Document(s ) UNK 2.3-3.5 Above high <content Saint normal styleCode="Bold [place] ">Globulin Medical </content>3.7 Center G/DL H<content styleCode="Ital ics"> (2.3-3.5 G/DL)</content> Lactate 316-618 <content Saint dehydrogenase styleCode="Main Romano [Enzymatic ">Lactate Medical activity/volume] Dehydrogenase Center in Serum or (LDH) Plasma by </content>320 Pyruvate to IU/L<content lactate reaction styleCode="Ital ics"> (316-618 IU/L)</content> UNK >= 1.0 <content Saint styleCode="Bold [place] ">AG Ratio Medical </content>1.3 Center <content styleCode="Ital ics"> (>= 1.0 )</content> Magnesium 1.6-2.3 <content Saint [Mass/volume] in styleCode="Bold [place] Serum or Plasma ">Magnesium Medical </content>1.9 Center MG/DL<content styleCode="Ital ics"> (1.6-2.3 MG/DL)</content > Protein 6.3-8.2 Above high <content [facility] [Mass/volume] in normal styleCode="Bold [place] Serum or Plasma ">Total Protein Medical </content>8.4 Center G/DL H<content styleCode="Ital ics"> (6.3-8.2 G/DL)</content> ID Date Data Source [facility].[id number] 08/24/2019 11:00:00 AM EDT [facility] Name Value Range Interpretation Description Data Sup porting Code Source(s) Document(s ) Sodium 137-145 <content Saint [Moles/volume] in styleCode="Bold"> Dpiesh phs Serum or Plasma Sodium Medical </content>140 Center MEQ/L<content styleCode="Italic s"> (137-145 MEQ/L)</content> Potassium 3.5-5.3 <content [facility] [Moles/volume] in styleCode="Bold"> Dipesh phs Serum or Plasma Potassium Medical </content>4.1 Center MEQ/L<content styleCode="Italic s"> (3.5-5.3 MEQ/L)</content> Chloride 98-107 <content [facility] [Moles/volume] in styleCode="Bold"> Dipesh phs Serum or Plasma Chloride Medical </content>103 Center MEQ/L<content styleCode="Italic s"> (98-107 MEQ/L)</content> UNK 7-17 <content Saint styleCode="Bold"> [place] BUN </content>9 Medical MG/DL<content Center styleCode="Italic s"> (7-17 MG/DL)</content> Creatinine 0.5-1.3 <content Saint [Mass/volume] in styleCode="Bold"> Jj hs Serum or Plasma Creatinine Medical </content>0.6 Center MG/DL<content styleCode="Italic s"> (0.5-1.3 MG/DL)</content> Carbon dioxide, 22-30 <content Saint total styleCode="Bold"> [place] [Moles/volume] in Carbon Dioxide Medical Serum or Plasma </content>25 Center MEQ/L<content styleCode="Italic s"> (22-30 MEQ/L)</content> Aspartate 14-36 <content [facility] aminotransferase styleCode="Bold"> Jj hs [Enzymatic Aspartate Medical activity/volume] Aminotransferase Center in Serum or Plasma (AST) </content>24 IU/L<content styleCode="Italic s"> (14-36 IU/L)</content> Calcium 8.4-10. <content Saint [Mass/volume] in 2 styleCode="Bold"> Jj hs Serum or Plasma Calcium Medical </content>9.9 Center MG/DL<content styleCode="Italic s"> (8.4-10.2 MG/DL)</content> Alanine 7-30 <content [facility] aminotransferase styleCode="Bold"> Jj hs [Enzymatic Alanine Medical activity/volume] Aminotransferase Center in Serum or Plasma (ALT) </content>13 IU/L<content styleCode="Italic s"> (7-30 IU/L)</content> Glucose 74-106 <content Saint [Mass/volume] in styleCode="Bold"> Jj hs Serum or Plasma Glucose Medical </content>105 Center MG/DL<content styleCode="Italic s"> (74-106 MG/DL)</content> UNK > 60 <content Saint styleCode="Bold"> [place] EGFR Medical </content>128 Center GFR<content styleCode="Italic s"> (> 60 GFR)</content> Alkaline 38-126 <content [facility] phosphatase styleCode="Bold"> [place] [Enzymatic Alkaline Medical activity/volume] Phosphatase (ALP) Cente r in Serum or Plasma </content>80 IU/L<content styleCode="Italic s"> (38-126 IU/L)</content> Bilirubin.total 0.2-1.3 <content [facility] [Mass/volume] in styleCode="Bold"> Jj hs Serum or Plasma Bilirubin Total Medical </content>0.5 Center MG/DL<content styleCode="Italic s"> (0.2-1.3 MG/DL)</content> Albumin 3.5-5.0 <content Saint [Mass/volume] in styleCode="Bold"> Jj hs Serum or Plasma Albumin Medical </content>4.7 Center G/DL<content styleCode="Italic s"> (3.5-5.0 G/DL)</content> ID Date Data Source [facility].[id number] 06/16/2019 04:21:00 PM EST [facility] 500 Name Value Range Interpretation Description Data Sup porting Code Source(s) Document(s ) Streptococcus NEGATIVE <item><conten Saint pyogenes Ag t [place] [Presence] in styleCode="Liang Medical Unspecified ld">Rapid Center specimen by Strep A Immunoassay </content>
<table><tbo dy><tr><td>Sp ecimen Number:</td>< td>[id number]< /td></tr><tr> <td>Sample Collection Date/Time: </td><td>06/16 4:21 PM</td></tr>< tr><td>Specim en Source:</td>< td>THROAT</td ></tr><tr><td >Rapid Strep A:</td><td>PO SITIVE </td></tr></t body></table> </item> ID Date Data Source Liver 05/13/2019 02:00:00 PM [facility] Profile.[id number] Name Value Range Interpretation Description Data Sup porting Code Source(s) Document(s ) Albumin 3.5-5.0 <content Saint [Mass/volume] in styleCode="Bold"> Jj hs Serum or Plasma Albumin Medical </content>4.3 Center G/DL<content styleCode="Italic s"> (3.5-5.0 G/DL)</content> Bilirubin.total 0.2-1.3 <content Saint [Mass/volume] in styleCode="Bold"> Jj hs Serum or Plasma Bilirubin Total Medical </content>0.5 Center MG/DL<content styleCode="Italic s"> (0.2-1.3 MG/DL)</content> Alkaline 38-126 <content [facility] phosphatase styleCode="Bold"> [place] [Enzymatic Alkaline Medical activity/volume] Phosphatase (ALP) Cente r in Serum or Plasma </content>81 IU/L<content styleCode="Italic s"> (38-126 IU/L)</content> Aspartate 14-36 <content [facility] aminotransferase styleCode="Bold"> Jj hs [Enzymatic Aspartate Medical activity/volume] Aminotransferase Center in Serum or Plasma (AST) </content>29 IU/L<content styleCode="Italic s"> (14-36 IU/L)</content> Alanine 7-30 <content [facility] aminotransferase styleCode="Bold"> Jj hs [Enzymatic Alanine Medical activity/volume] Aminotransferase Center in Serum or Plasma (ALT) </content>21 IU/L<content styleCode="Italic s"> (7-30 IU/L)</content> ID Date Data Source LIPID.[id number] 05/13/2019 02:00:00 PM EST [facility] Name Value Range Interpretation Description Data Sup porting Code Source(s) Document(s ) UNK < 100 <content Saint styleCode="Pantera [place] d">LDL-Cholest [facility] </content>86 MG/DL<content styleCode="Vielka lics"> (< 100 MG/DL)</conten t> Cholesterol -<200 <content Saint [Mass/volume] in styleCode="Pantera [place] Serum or Plasma d">Cholesterol Medical </content>166 Center MG/DL<content styleCode="Vielka lics"> (-<200 MG/DL)</conten t> UNK > 60 <content Saint styleCode="Pantera [place] d">HDL- Medical Cholesterol Center </content>61 MG/DL<content styleCode="Vielka lics"> (> 60 MG/DL)</conten t> Triglyceride < 150 <content Saint [Mass/volume] in styleCode="Pantera [place] Serum or Plasma d">Triglycerid [facility] Center </content>96 MG/DL<content styleCode="Vielka lics"> (< 150 MG/DL)</conten t> ID Date Data Source Hormones.[id number] 05/13/2019 02:00:00 PM EST [facility] Name Value Range Interpretation Description Data Sup porting Code Source(s) Document(s ) Thyrotropin 0.465-4. <content Saint [Units/volume] 68 styleCode="Pantera [place] in Serum or d">Thyroid Medical Plasma by Stimulating Center Detection Hormone limit <= 0.05 </content>1.39 mIU/L MIU/L<content styleCode="Vielka lics"> (0.465-4.68 MIU/L)</conten t> ID Date Data Source HematologyRou.[id number] 05/13/2019 02:00:00 PM [facility] 0500 Name Value Range Interpretation Description Data Sup porting Code Source(s) Document(s ) Leukocytes 4.4-11.0 <content Saint [#/volume] in styleCode="Bold [place] Blood by ">White Blood Medical Automated count Cell Count Center </content>7.26 KCUMM<content styleCode="Ital ics"> (4.4-11.0 KCUMM)</content > Hemoglobin 12.3-16. Below low normal <content Saint [Mass/volume] in 0 styleCode="Bold [place] Blood ">Hemoglobin Medical </content>10.1 Center G/DL L<content styleCode="Ital ics"> (12.3-16.0 G/DL)</content> Erythrocytes 4.0-5.1 <content Saint [#/volume] in styleCode="Bold [place] Blood by ">Red Blood Medical Automated count Cell Count Center </content>4.59 MCUMM<content styleCode="Ital ics"> (4.0-5.1 MCUMM)</content > Erythrocyte mean 80.0-100 <content [facility] corpuscular .0 styleCode="Bold [place] volume [Entitic ">Mean Medical volume] by Corpuscular Center Automated count Volume </content>71.0 FL<content styleCode="Ital ics"> (80.0-100.0 FL)</content> Hematocrit 36.0-46. Below low normal <content Saint [Volume 0 styleCode="Bold [place] Fraction] of ">Hematocrit Medical Blood by </content>32.6 Center Automated count % L<content styleCode="Ital ics"> (36.0-46.0 %)</content> Platelet mean 8.0-11.0 <content Saint volume [Entitic styleCode="Bold [place] volume] in Blood ">Mean Platelet Medical by Automated Volume Center count </content>9.8 FL<content styleCode="Ital ics"> (8.0-11.0 FL)</content> Erythrocyte mean 26.0-34. Below low normal <content [facility] corpuscular 0 styleCode="Bold [place] hemoglobin ">Mean Medical [Entitic mass] Corposcular Center by Automated Hemoglobin count </content>22.0 PG L<content styleCode="Ital ics"> (26.0-34.0 PG)</content> Platelets 130-400 Above high <content Saint [#/volume] in normal styleCode="Bold [place] Blood by ">Platelet Medical Automated count Count Center </content>408 KCUMM H<content styleCode="Ital ics"> (130-400 KCUMM)</content > Erythrocyte 11.5-14. Above high <content [facility] distribution 5 normal styleCode="Bold [place] width [Ratio] by ">Red Cell Medical Automated count Distribution Center Width </content>15.3 % H<content styleCode="Ital ics"> (11.5-14.5 %)</content> Erythrocyte mean 32.0-37. Below low normal <content [facility] corpuscular 0 styleCode="Bold [place] hemoglobin ">Mean Corpus. Medical concentration Hgb Center [Mass/volume] by Concentration Automated count (MCHC) </content>31.0 G/DL L<content styleCode="Ital ics"> (32.0-37.0 G/DL)</content> Neutrophils 36-66 <content [facility] [#/volume] in styleCode="Bold [place] Blood by ">Neutrophil Medical Automated count </content>61.8 Center %<content styleCode="Ital ics"> (36-66 %)</content> UNK 1.0-4.8 <content [facility] styleCode="[facility] [place] ">Lymphocyte Medical Count Center </content>2.15 KCUMM<content styleCode="Ital ics"> (1.0-4.8 KCUMM)</content > Lymphocytes 24.0-44. <content [facility] [#/volume] in 0 styleCode="Bold [place] Blood by ">Lymphocyte Medical Automated count </content>29.6 Center %<content styleCode="Ital ics"> (24.0-44.0 %)</content> UNK 1.6-7.3 <content [facility] styleCode="[facility] [place] ">Neutrophil Medical Count Center </content>4.48 KCUMM<content styleCode="Ital ics"> (1.6-7.3 KCUMM)</content > Basophils 0.0-1.0 <content [facility] [#/volume] in styleCode="Bold [place] Blood by ">Basophil Medical Automated count </content>0.4 Center %<content styleCode="Ital ics"> (0.0-1.0 %)</content> UNK 0.2-0.9 <content [facility] styleCode="[facility]old [place] ">Monocyte Medical Count Center </content>0.49 KCUMM<content styleCode="Ital ics"> (0.2-0.9 KCUMM)</content > Eosinophils 0-5.0 <content [facility] [#/volume] in styleCode="Bold [place] Blood by ">Eosinophil Medical Automated count </content>1.1 Center %<content styleCode="Ital ics"> (0-5.0 %)</content> Monocytes 3.0-10.0 <content [facility] [#/volume] in styleCode="Bold [place] Blood by ">Monocyte Medical Automated count </content>6.7 Center %<content styleCode="Ital ics"> (3.0-10.0 %)</content> UNK 0.0-0.6 <content [facility] styleCode="[facility] [place] ">Eosinophil Medical Count Center </content>0.08 KCUMM<content styleCode="Ital ics"> (0.0-0.6 KCUMM)</content > UNK 0-0.1 <content [facility] styleCode="[facility] [place] ">Immature Medical Granulocyte Center Count </content>0.03 KCUMM<content styleCode="Ital ics"> (0-0.1 KCUMM)</content > UNK 0.0-0.3 <content [facility] styleCode="[facility] [place] ">Basophil Medical Count Center </content>0.03 KCUMM<content styleCode="Ital ics"> (0.0-0.3 KCUMM)</content > UNK 0.0 <content [facility] styleCode="Bold [place] ">Nucleated Red Medical Blood Cell Center Count </content>0.00 KCUMM<content styleCode="Ital ics"> (0.0 KCUMM)</content > UNK < 1 <content [facility] styleCode="[facility] [place] ">Immature Medical Granulocyte Center Ratio </content>0.4 %<content styleCode="Ital ics"> (< 1 %)</content> UNK 0 <content [facility] styleCode="[facility] [place] ">Nucleated Red Medical Blood Cell Center </content>0.0 /100<content styleCode="Ital ics"> (0 /100)</content> ID Date Data Source GFR(Creatinine).[id number] 05/13/2019 02:00:00 PM [facility] 0-0500 Name Value Range Interpretation Code Description Data Jihan rce(s) Supporting Document(s ) UNK > 60 <content [facility] styleCode="Bold"> Medical Cent er EGFR </content>159 GFR<content styleCode="Italic s"> (> 60 GFR)</content> ID Date Data Source ChemistrySpecia.[id number] 05/13/2019 02:00:00 PM [facility] 0-0500 Name Value Range Interpretation Description Data Sup porting Code Source(s) Document(s ) Folate > 3.0 <content [facility] [Mass/volume] styleCode="[facility] [place] in Serum or d">Folic Acid Medical Plasma </content>13.7 Center NG/ML<content styleCode="Vielka lics"> (> 3.0 NG/ML)</conten t> Cobalamin 239-931 <content [facility] (Vitamin B12) styleCode="[facility] [place] [Mass/volume] d">Vitamin B12 Medical in Serum or </content>560 Center Plasma PG/ML<content styleCode="Vielka lics"> (239-931 PG/ML)</conten t> ID Date Data Source CHMROUTINECCDA.[id number] 05/13/2019 02:00:00 PM [facility] -0500 Name Value Range Interpretation Description Data Sup porting Code Source(s) Document(s ) UNK 4.2-5.8 <content [facility] styleCode="Bold Medical ">Hemoglobin Center A1C </content>5.8 %<content styleCode="Ital ics"> (4.2-5.8 %)</content> UNK 2.3-3.5 <content [facility] styleCode="Bold Medical ">Globulin Center </content>3.5 G/DL<content styleCode="Ital ics"> (2.3-3.5 G/DL)</content> UNK >= 1.0 <content [facility] styleCode="Bold Medical ">AG Ratio Center </content>1.2 <content styleCode="Ital ics"> (>= 1.0 )</content> Folate > 3.0 <content [facility] [Mass/volum styleCode="Bold Medical e] in Serum ">Folic Acid Center or Plasma </content>13.7 NG/ML<content styleCode="Ital ics"> (> 3.0 NG/ML)</content > Protein 6.3-8.2 <content [facility] [Mass/volum styleCode="Bold Medical e] in Serum ">Total Protein Center or Plasma </content>7.8 G/DL<content styleCode="Ital ics"> (6.3-8.2 G/DL)</content> ID Date Data Source [facility].[id number] 05/13/2019 02:00:00 PM EST [facility] Name Value Range Interpretation Description Data Sup porting Code Source(s) Document(s ) Sodium 137-145 Below low <content [facility] [Moles/volume] in normal styleCode="Bold"> Dipesh phs Serum or Plasma Sodium Medical </content>136 Center MEQ/L L<content styleCode="Italic s"> (137-145 MEQ/L)</content> Chloride 98-107 <content [facility] [Moles/volume] in styleCode="Bold"> Dipesh phs Serum or Plasma Chloride Medical </content>101 Center MEQ/L<content styleCode="Italic s"> (98-107 MEQ/L)</content> UNK 7-17 <content [facility] styleCode="Bold"> [place] BUN </content>8 Medical MG/DL<content Center styleCode="Italic s"> (7-17 MG/DL)</content> Carbon dioxide, 22-30 <content [facility] total styleCode="Bold"> [place] [Moles/volume] in Carbon Dioxide Medical Serum or Plasma </content>27 Center MEQ/L<content styleCode="Italic s"> (22-30 MEQ/L)</content> Potassium 3.5-5.3 <content [facility] [Moles/volume] in styleCode="Bold"> Dipesh phs Serum or Plasma Potassium Medical </content>4.8 Center MEQ/L<content styleCode="Italic s"> (3.5-5.3 MEQ/L)</content> Calcium 8.4-10. <content [facility] [Mass/volume] in 2 styleCode="Bold"> Jj hs Serum or Plasma Calcium Medical </content>9.8 Center MG/DL<content styleCode="Italic s"> (8.4-10.2 MG/DL)</content> UNK > 60 <content [facility] styleCode="Bold"> [place] EGFR Medical </content>159 Center GFR<content styleCode="Italic s"> (> 60 GFR)</content> Creatinine 0.5-1.3 <content [facility] [Mass/volume] in styleCode="Bold"> Jj hs Serum or Plasma Creatinine Medical </content>0.5 Center MG/DL<content styleCode="Italic s"> (0.5-1.3 MG/DL)</content> Glucose 74-106 <content [facility] [Mass/volume] in styleCode="Bold"> Jj hs Serum or Plasma Glucose Medical </content>89 Center MG/DL<content styleCode="Italic s"> (74-106 MG/DL)</content> Aspartate 14-36 <content [facility] aminotransferase styleCode="Bold"> Jj hs [Enzymatic Aspartate Medical activity/volume] Aminotransferase Center in Serum or Plasma (AST) </content>29 IU/L<content styleCode="Italic s"> (14-36 IU/L)</content> Alkaline 38-126 <content [facility] phosphatase styleCode="Bold"> [place] [Enzymatic Alkaline Medical activity/volume] Phosphatase (ALP) Cente r in Serum or Plasma </content>81 IU/L<content styleCode="Italic s"> (38-126 IU/L)</content> Alanine 7-30 <content [facility] aminotransferase styleCode="Bold"> Jj hs [Enzymatic Alanine Medical activity/volume] Aminotransferase Center in Serum or Plasma (ALT) </content>21 IU/L<content styleCode="Italic s"> (7-30 IU/L)</content> Bilirubin.total 0.2-1.3 <content [facility] [Mass/volume] in styleCode="Bold"> Jj hs Serum or Plasma Bilirubin Total Medical </content>0.5 Center MG/DL<content styleCode="Italic s"> (0.2-1.3 MG/DL)</content> Albumin 3.5-5.0 <content [facility] [Mass/volume] in styleCode="Bold"> Jj hs Serum or Plasma Albumin Medical </content>4.3 Center G/DL<content styleCode="Italic s"> (3.5-5.0 G/DL)</content> ID Date Data Source Liver 03/26/2019 11:00:[address] [facility] Profile.[id number] Name Value Range Interpretation Description Data Sup porting Code Source(s) Document(s ) Aspartate 14-36 <content [facility] aminotransferase styleCode="Bold"> Jj hs [Enzymatic Aspartate Medical activity/volume] Aminotransferase Center in Serum or Plasma (AST) </content>26 IU/L<content styleCode="Italic s"> (14-36 IU/L)</content> Alanine 7-30 <content [facility] aminotransferase styleCode="Bold"> Jj hs [Enzymatic Alanine Medical activity/volume] Aminotransferase Center in Serum or Plasma (ALT) </content>18 IU/L<content styleCode="Italic s"> (7-30 IU/L)</content> Alkaline 38-126 <content [facility] phosphatase styleCode="Bold"> [facility] [Enzymatic Alkaline Medical activity/volume] Phosphatase (ALP) Cente r in Serum or Plasma </content>82 IU/L<content styleCode="Italic s"> (38-126 IU/L)</content> Bilirubin.total 0.2-1.3 <content [facility] [Mass/volume] in styleCode="Bold"> Jj hs Serum or Plasma Bilirubin Total Medical </content>0.3 Center MG/DL<content styleCode="Italic s"> (0.2-1.3 MG/DL)</content> Albumin 3.5-5.0 <content [facility] [Mass/volume] in styleCode="Bold"> Jj hs Serum or Plasma Albumin Medical </content>4.2 Center G/DL<content styleCode="Italic s"> (3.5-5.0 G/DL)</content> ID Date Data Source GFR(Creatinine).[id number] 03/26/2019 11:00:00 AM [facility] 0-0500 Name Value Range Interpretation Code Description Data Jihan rce(s) Supporting Document(s ) UNK > 60 <content [facility] styleCode="Bold"> Medical Cent er EGFR </content>205 GFR<content styleCode="Italic s"> (> 60 GFR)</content> ID Date Data Source CHMROUTINECCDA.[id number] 03/26/2019 11:00:00 AM [facility] -0500 Name Value Range Interpretation Description Data Sup porting Code Source(s) Document(s ) UNK 2.3-3.5 Above high normal <content [facility] styleCode="Bold Medical ">Globulin Center </content>3.6 G/DL H<content styleCode="Ital ics"> (2.3-3.5 G/DL)</content> UNK >= 1.0 <content [facility] styleCode="Bold Medical ">AG Ratio Center </content>1.2 <content styleCode="Ital ics"> (>= 1.0 )</content> Protein 6.3-8.2 <content [facility] [place] [Mass/volum styleCode="Bold Medical e] in Serum ">Total Protein Center or Plasma </content>7.8 G/DL<content styleCode="Ital ics"> (6.3-8.2 G/DL)</content> ID Date Data Source [facility].[id number] 03/26/2019 11:00:00 AM EST [facility] Name Value Range Interpretation Description Data Sup porting Code Source(s) Document(s ) Sodium 137-145 <content [facility] [Moles/volume] in styleCode="Bold"> Dipesh [facility] Serum or Plasma Sodium Medical </content>140 Center MEQ/L<content styleCode="Italic s"> (137-145 MEQ/L)</content> Chloride 98-107 <content [facility] [Moles/volume] in styleCode="Bold"> Dipesh [facility] Serum or Plasma Chloride Medical </content>104 Center MEQ/L<content styleCode="Italic s"> (98-107 MEQ/L)</content> Potassium 3.5-5.3 <content [facility] [Moles/volume] in styleCode="Bold"> Dipesh [facility] Serum or Plasma Potassium Medical </content>3.9 Center MEQ/L<content styleCode="Italic s"> (3.5-5.3 MEQ/L)</content> UNK 7-17 <content [facility] styleCode="Bold"> [place] BUN </content>9 Medical MG/DL<content Center styleCode="Italic s"> (7-17 MG/DL)</content> Creatinine 0.5-1.3 Below low <content [facility] [Mass/volume] in normal styleCode="Bold"> Jj hs Serum or Plasma Creatinine Medical </content>0.4 Center MG/DL L<content styleCode="Italic s"> (0.5-1.3 MG/DL)</content> Carbon dioxide, 22-30 <content [facility] total styleCode="Bold"> [place] [Moles/volume] in Carbon Dioxide Medical Serum or Plasma </content>26 Center MEQ/L<content styleCode="Italic s"> (22-30 MEQ/L)</content> UNK > 60 <content [facility] styleCode="Bold"> [place] EGFR Medical </content>205 Center GFR<content styleCode="Italic s"> (> 60 GFR)</content> Glucose 74-106 <content [facility] [Mass/volume] in styleCode="Bold"> Jj hs Serum or Plasma Glucose Medical </content>93 Center MG/DL<content styleCode="Italic s"> (74-106 MG/DL)</content> Calcium 8.4-10. <content [facility] [Mass/volume] in 2 styleCode="Bold"> Jj hs Serum or Plasma Calcium Medical </content>9.7 Center MG/DL<content styleCode="Italic s"> (8.4-10.2 MG/DL)</content> Alanine 7-30 <content [facility] aminotransferase styleCode="Bold"> Jj hs [Enzymatic Alanine Medical activity/volume] Aminotransferase Center in Serum or Plasma (ALT) </content>18 IU/L<content styleCode="Italic s"> (7-30 IU/L)</content> Aspartate 14-36 <content [facility] aminotransferase styleCode="Bold"> Jj hs [Enzymatic Aspartate Medical activity/volume] Aminotransferase Center in Serum or Plasma (AST) </content>26 IU/L<content styleCode="Italic s"> (14-36 IU/L)</content> Alkaline 38-126 <content [facility] phosphatase styleCode="Bold"> [place] [Enzymatic Alkaline Medical activity/volume] Phosphatase (ALP) Cente r in Serum or Plasma </content>82 IU/L<content styleCode="Italic s"> (38-126 IU/L)</content> Albumin 3.5-5.0 <content [facility] [Mass/volume] in styleCode="Bold"> Jj hs Serum or Plasma Albumin Medical </content>4.2 Center G/DL<content styleCode="Italic s"> (3.5-5.0 G/DL)</content> Bilirubin.total 0.2-1.3 <content [facility] [Mass/volume] in styleCode="Bold"> Jj hs Serum or Plasma Bilirubin Total Medical </content>0.3 Center MG/DL<content styleCode="Italic s"> (0.2-1.3 MG/DL)</content> ID Date Data Source Urinalysis.[id number] 02/16/2019 12:28:00 PM EDT [facility] 0 Name Value Range Interpretation Description Data Sup porting Code Source(s) Document(s ) Color of Urine YELLOW <content Saint styleCode="[facility] d">Color, Medical Urine Center </content>YELL OW <content styleCode="Vielka lics"> (YELLOW )</content> UNK NEGATIVE <content Saint styleCode="[facility] d">Urine Medical Bilirubin Center </content>NEGA TIVE <content styleCode="Vielka lics"> (NEGATIVE )</content> UNK CLEAR <content Saint styleCode="[facility] d">Urine Medical Clarity Center </content>SD R <content styleCode="Vielka lics"> (CLEAR )</content> Glucose NEGATIVE <content [facility] [Mass/volume] styleCode="[facility] [place] in Urine by d">Urine Medical Test strip Glucose Center </content>NEGA TIVE MG/DL<content styleCode="Vielka lics"> (NEGATIVE MG/DL)</conten t> Urobilinogen 0.2-1.0 <content [facility] [Units/volume] styleCode="[facility] [place] in Urine by d">Urine Medical Test strip Urobilinogen Center </content>0.2 MG/DL<content styleCode="Vielka lics"> (0.2-1.0 MG/DL)</conten t> Specific 1.015-1.02 <content [facility] gravity of 5 styleCode="[facility] [place] Urine by Test d">Urine Medical strip Specific Center [place] </content>1.02 5 <content styleCode="Vielka lics"> (1.015-1.025 )</content> pH of Urine by 4.5-8.0 <content [facility] Test strip styleCode="[facility] [place] d">Urine pH Medical </content>6.0 Center <content styleCode="Vielka lics"> (4.5-8.0 )</content> Hemoglobin NEGATIVE <content [facility] [Presence] in styleCode="[facility] [place] Urine by Test d">Urine Blood Medical strip </content>TRAC Center E <content styleCode="Vielka lics"> (NEGATIVE )</content> Protein NEGATIVE <content [facility] [Mass/volume] styleCode="[facility] [place] in Urine by d">Urine Medical Test strip Protein Center </content>TRAC E MG/DL<content styleCode="Vielka lics"> (NEGATIVE MG/DL)</conten t> Ketones NEGATIVE <content [facility] [Mass/volume] styleCode="[facility] [place] in Urine by d">Urine Medical Test strip Ketone Center </content>NEGA TIVE MG/DL<content styleCode="Vielka lics"> (NEGATIVE MG/DL)</conten t> UNK 0-3 <content [facility] styleCode="[facility] [place] d">Urine Red Medical Blood Cell Center </content>3-5 HPF<content styleCode="Vielka lics"> (0-3 HPF)</content> UNK NEGATIVE <content [facility] styleCode="[facility] [place] d">Urine Medical Bacteria Center </content>MODE RATE HPF<content styleCode="Vielka lics"> (NEGATIVE HPF)</content> Leukocyte NEGATIVE <content [facility] esterase styleCode="[facility] [place] [Presence] in d">Urine Medical Urine by Test Leukocyte Center strip </content>NEGA TIVE <content styleCode="Vielka lics"> (NEGATIVE )</content> Nitrite NEGATIVE <content [facility] [Presence] in styleCode="[facility] [place] Urine by Test d">Urine Medical strip Nitrite Center </content>NEGA TIVE <content styleCode="Vielka lics"> (NEGATIVE )</content> UNK 0-3 <content [facility] styleCode="[facility] [place] d">Urine White Medical Blood Cell Center </content>0-3 HPF<content styleCode="Vielka lics"> (0-3 HPF)</content> UNK NONE SEEN <content [facility] styleCode="[facility] [place] d">Epithelial Medical Cell Center </content>5 - 10 HPF<content styleCode="Vielka lics"> (NONE SEEN HPF)</content> ID Date Data Source Urinalysis.[id number] 09/24/2018 11:00:00 AM EDT [facility] 0 Name Value Range Interpretation Description Data Sup porting Code Source(s) Document(s ) Color of Urine YELLOW <content [facility] styleCode="[facility] [place] d">Color, Medical Urine Center </content>YELL OW <content styleCode="Vielka lics"> (YELLOW )</content> UNK CLEAR <content [facility] styleCode="[facility] d">Urine Medical Clarity Center </content>SD R <content styleCode="Vielka lics"> (CLEAR )</content> Ketones NEGATIVE <content [facility] [Mass/volume] styleCode="[facility] [place] in Urine by d">Urine Medical Test strip Ketone Center </content>NEGA TIVE MG/DL<content styleCode="Vielka lics"> (NEGATIVE MG/DL)</conten t> Glucose NEGATIVE <content [facility] [Mass/volume] styleCode="[facility] [place] in Urine by d">Urine Medical Test strip Glucose Center </content>NEGA TIVE MG/DL<content styleCode="Vielka lics"> (NEGATIVE MG/DL)</conten t> UNK NEGATIVE <content [facility] styleCode="[facility] [place] d">Urine Medical Bilirubin Center </content>NEGA TIVE <content styleCode="Vielka lics"> (NEGATIVE )</content> Specific 1.015-1.02 <content [facility] gravity of 5 styleCode="[facility] [place] Urine by Test d">Urine Medical strip Specific Center [place] </content>1.02 0 <content styleCode="Vielka lics"> (1.015-1.025 )</content> Hemoglobin NEGATIVE <content [facility] [Presence] in styleCode="[facility] [place] Urine by Test d">Urine Blood Medical strip </content>SMAL Center L <content styleCode="Vielka lics"> (NEGATIVE )</content> Urobilinogen 0.2-1.0 <content [facility] [Units/volume] styleCode="[facility] [place] in Urine by d">Urine Medical Test strip Urobilinogen Center </content>0.2 MG/DL<content styleCode="Vielka lics"> (0.2-1.0 MG/DL)</conten t> Protein NEGATIVE <content [facility] [Mass/volume] styleCode="[facility] [place] in Urine by d">Urine Medical Test strip Protein Center </content>NEGA TIVE MG/DL<content styleCode="Vielka lics"> (NEGATIVE MG/DL)</conten t> pH of Urine by 4.5-8.0 <content [facility] Test strip styleCode="[facility] [place] d">Urine pH Medical </content>6.0 Center <content styleCode="Vielka lics"> (4.5-8.0 )</content> Leukocyte NEGATIVE <content [facility] esterase styleCode="[facility] [place] [Presence] in d">Urine Medical Urine by Test Leukocyte Center strip </content>NEGA TIVE <content styleCode="Vielka lics"> (NEGATIVE )</content> Nitrite NEGATIVE <content [facility] [Presence] in styleCode="[facility] [place] Urine by Test d">Urine Medical strip Nitrite Center </content>NEGA TIVE <content styleCode="Vielka lics"> (NEGATIVE )</content> UNK NEGATIVE <content [facility] styleCode="[facility] [place] d">Urine Medical Bacteria Center </content>FEW HPF<content styleCode="Vielka lics"> (NEGATIVE HPF)</content> UNK 0-3 <content [facility] styleCode="[facility] [place] d">Urine White Medical Blood Cell Center </content>0-3 HPF<content styleCode="Vielka lics"> (0-3 HPF)</content> UNK 0-3 <content [facility] styleCode="[facility] [place] d">Urine Red Medical Blood Cell Center </content>5 - 10 HPF<content styleCode="Vielka lics"> (0-3 HPF)</content> UNK <content [facility] styleCode="[facility] [place] d">Epithelial Medical Cell Center </content>10 - 20 LPF (Reference Range: not available)<br/ > ID Date Data Source Hormones.[id number] 04/23/2018 11:33:00 AM EST [facility] Name Value Range Interpretation Description Data Sup porting Code Source(s) Document(s ) Thyrotropin 0.465-4. <content [facility] [Units/volume] 68 styleCode="[facility] [place] in Serum or d">Thyroid Medical Plasma by Stimulating Center Detection Hormone limit <= 0.05 </content>1.40 mIU/L MIU/L<content styleCode="Vielka lics"> (0.465-4.68 MIU/L)</conten t> ID Date Data Source HematologyRou.[id number] 04/23/2018 11:33:00 AM EST [facility] 0500 Name Value Range Interpretation Description Data Sup porting Code Source(s) Document(s ) Leukocytes 4.4-11.0 <content [facility] [#/volume] in styleCode="Bold [place] Blood by ">White Blood Medical Automated count Cell Count Center </content>5.29 KCUMM<content styleCode="Ital ics"> (4.4-11.0 KCUMM)</content > Erythrocytes 4.0-5.1 <content [facility] [#/volume] in styleCode="Bold [place] Blood by ">Red Blood Medical Automated count Cell Count Center </content>4.43 MCUMM<content styleCode="Ital ics"> (4.0-5.1 MCUMM)</content > Hemoglobin 12.3-16. Below low normal <content [facility] [Mass/volume] in 0 styleCode="Bold [place] Blood ">Hemoglobin Medical </content>10.5 Center G/DL L<content styleCode="Ital ics"> (12.3-16.0 G/DL)</content> Erythrocyte mean 32.0-37. <content [facility] corpuscular 0 styleCode="Bold [place] hemoglobin ">Mean Corpus. Medical concentration Hgb Center [Mass/volume] by Concentration Automated count (MCHC) </content>32.6 G/DL<content styleCode="Ital ics"> (32.0-37.0 G/DL)</content> Erythrocyte 11.5-14. <content [facility] distribution 5 styleCode="Bold [place] width [Ratio] by ">Red Cell Medical Automated count Distribution Center Width </content>14.2 %<content styleCode="Ital ics"> (11.5-14.5 %)</content> Erythrocyte mean 80.0-100 <content [facility] corpuscular .0 styleCode="Bold [place] volume [Entitic ">Mean Medical volume] by Corpuscular Center Automated count Volume </content>72.7 FL<content styleCode="Ital ics"> (80.0-100.0 FL)</content> Erythrocyte mean 26.0-34. Below low normal <content [facility] corpuscular 0 styleCode="Bold [place] hemoglobin ">Mean Medical [Entitic mass] Corposcular Center by Automated Hemoglobin count </content>23.7 PG L<content styleCode="Ital ics"> (26.0-34.0 PG)</content> Hematocrit 36.0-46. Below low normal <content Saint [Volume 0 styleCode="Bold [place] Fraction] of ">Hematocrit Medical Blood by </content>32.2 Center Automated count % L<content styleCode="Ital ics"> (36.0-46.0 %)</content> UNK 0.0 <content [facility] styleCode="Bold [place] ">Nucleated Red Medical Blood Cell Center Count </content>0.00 KCUMM<content styleCode="Ital ics"> (0.0 KCUMM)</content > Platelets 130-400 <content Saint [#/volume] in styleCode="Bold [place] Blood by ">Platelet Medical Automated count Count Center </content>336 KCUMM<content styleCode="Ital ics"> (130-400 KCUMM)</content > Platelet mean 8.0-11.0 <content Saint volume [Entitic styleCode="Bold [place] volume] in Blood ">Mean Platelet Medical by Automated Volume Center count </content>10.0 FL<content styleCode="Ital ics"> (8.0-11.0 FL)</content> UNK 0 <content [facility] styleCode="Bold [place] ">Nucleated Red Medical Blood Cell Center </content>0.0 /100<content styleCode="Ital ics"> (0 /100)</content> ID Date Data Source GFR(Creatinine).[id number] 04/23/2018 11:33:00 AM [facility] 0-0500 Name Value Range Interpretation Code Description Data Jihan rce(s) Supporting Document(s ) UNK > 60 <content [facility] styleCode="Bold"> Medical Cent er EGFR </content>129 GFR<content styleCode="Italic s"> (> 60 GFR)</content> ID Date Data Source CHMROUTINECCDA.[id number] 04/23/2018 11:33:00 AM [facility] -0500 Name Value Range Interpretation Description Data Sup porting Code Source(s) Document(s ) Magnesium 1.6-2.3 <content [facility] [Mass/volume] styleCode="[facility] [place] in Serum or d">Magnesium Medical Plasma </content>1.7 Center MG/DL<content styleCode="Vielka lics"> (1.6-2.3 MG/DL)</conten t> Phosphate 2.5-4.5 <content [facility] [Mass/volume] styleCode="Pantera Rosalina in Serum or d">Phosphorus Medical Plasma </content>3.9 Center MG/DL<content styleCode="Vielka lics"> (2.5-4.5 MG/DL)</conten t> ID Date Data Source [facility].[id number] 04/23/2018 11:33:00 AM EST [facility] Name Value Range Interpretation Description Data Sup porting Code Source(s) Document(s ) Potassium 3.5-5.3 <content [facility] [Moles/volume] styleCode="Pantera Rosalina in Serum or d">Potassium Medical Plasma </content>4.3 Center MEQ/L<content styleCode="Vielka lics"> (3.5-5.3 MEQ/L)</conten t> Sodium 137-145 <content [facility] [Moles/volume] styleCode="Pantera Whitmans in Serum or d">Sodium Medical Plasma </content>138 Center MEQ/L<content styleCode="Vielka lics"> (137-145 MEQ/L)</conten t> Chloride 98-107 <content [facility] [Moles/volume] styleCode="Pantera [place] in Serum or d">Chloride Medical Plasma </content>103 Center MEQ/L<content styleCode="Vielka lics"> (98-107 MEQ/L)</conten t> Carbon 22-30 <content [facility] dioxide, total styleCode="Pantera Whitmans [Moles/volume] d">Carbon Medical in Serum or Dioxide Center Plasma </content>27 MEQ/L<content styleCode="Vielka lics"> (22-30 MEQ/L)</conten t> Glucose 74-106 <content [facility] [Mass/volume] styleCode="Pantera [place] in Serum or d">Glucose Medical Plasma </content>80 Center MG/DL<content styleCode="Vielka lics"> (74-106 MG/DL)</conten t> UNK 7-17 <content [facility] styleCode="Pantera [place] d">BUN Medical </content>10 Center MG/DL<content styleCode="Vielka lics"> (7-17 MG/DL)</conten t> Creatinine 0.5-1.3 <content [facility] [Mass/volume] styleCode="Pantera [place] in Serum or d">Creatinine Medical Plasma </content>0.6 Center MG/DL<content styleCode="Vielka lics"> (0.5-1.3 MG/DL)</conten t> Calcium 8.4-10.2 <content [facility] [Mass/volume] styleCode="Pantera [place] in Serum or d">Calcium Medical Plasma </content>9.3 Center MG/DL<content styleCode="Vielka lics"> (8.4-10.2 MG/DL)</conten t> UNK > 60 <content [facility] styleCode="Pantera [place] d">EGFR Medical </content>129 Center GFR<content styleCode="Vielka lics"> (> 60 GFR)</content> ID Date Data Source BMP 04/23/2018 11:33:00 AM EST [facility] Center Name Value Range Interpretation Description Data Sup porting Code Source(s) Document(s ) Sodium 137-145 <content [facility] [Moles/volume] styleCode="Pantera Rosalina in Serum or d">Sodium Medical Plasma </content>138 Center MEQ/L<content styleCode="Vielka lics"> (137-145 MEQ/L)</conten t> Carbon 22-30 <content [facility] dioxide, total styleCode="Pantera Rosalina [Moles/volume] d">Carbon Medical in Serum or Dioxide Center Plasma </content>27 MEQ/L<content styleCode="Vielka lics"> (22-30 MEQ/L)</conten t> Chloride 98-107 <content [facility] [Moles/volume] styleCode="Pantera [place]al[place] in Serum or d">Chloride Medical Plasma </content>103 Center MEQ/L<content styleCode="Vielka lics"> (98-107 MEQ/L)</conten t> Potassium 3.5-5.3 <content [facility] [Moles/volume] styleCode="Pantera Rosal[place] in Serum or d">Potassium Medical Plasma </content>4.3 Center MEQ/L<content styleCode="Vielka lics"> (3.5-5.3 MEQ/L)</conten t> UNK 7-17 <content [facility] styleCode="Pantera [place]alina d">BUN Medical </content>10 Center MG/DL<content styleCode="Vielka lics"> (7-17 MG/DL)</conten t> UNK > 60 <content [facility] styleCode="Pantera Rosalina d">EGFR Medical </content>129 Center GFR<content styleCode="Vielka lics"> (> 60 GFR)</content> Calcium 8.4-10.2 <content [facility] [Mass/volume] styleCode="Pantera Rosalina in Serum or d">Calcium Medical Plasma </content>9.3 Center MG/DL<content styleCode="Vielka lics"> (8.4-10.2 MG/DL)</conten t> Creatinine 0.5-1.3 <content [facility] [Mass/volume] styleCode="Pantera Rosal[place] in Serum or d">Creatinine Medical Plasma </content>0.6 Center MG/DL<content styleCode="Vielka lics"> (0.5-1.3 MG/DL)</conten t> Glucose 74-106 <content [facility] [Mass/volume] styleCode="Pantera Rosalina in Serum or d">Glucose Medical Plasma </content>80 Center MG/DL<content styleCode="Vielka lics"> (74-106 MG/DL)</conten t> ID Date Data Source [facility] 04/23/2018 11:33:00 AM [facility] Name Value Range Interpretation Description Data Sup porting Code Source(s) Document(s ) Phosphate 2.5-4.5 <content [facility] [Mass/volume] styleCode="Pantera Rosalina in Serum or d">Phosphorus Medical Plasma </content>3.9 Center MG/DL<content styleCode="Vielka lics"> (2.5-4.5 MG/DL)</conten t> Magnesium 1.6-2.3 <content [facility] [Mass/volume] styleCode="Pantera Rosalina in Serum or d">Magnesium Medical Plasma </content>1.7 Center MG/DL<content styleCode="Vielka lics"> (1.6-2.3 MG/DL)</conten t> ID Date Data Source GFR(Creatinine) 04/23/2018 11:33:00 AM [facility] Name Value Range Interpretation Code Description Data Jihan rce(s) Supporting Document(s ) UNK > 60 <content [facility] styleCode="Bold"> Medical Cent er EGFR </content>129 GFR<content styleCode="Italic s"> (> 60 GFR)</content> ID Date Data Source HematologyRou 04/23/2018 11:33:00 AM [facility] Name Value Range Interpretation Description Data Sup porting Code Source(s) Document(s ) Leukocytes 4.4-11.0 <content [facility] [#/volume] in styleCode="Bold [place] Blood by ">White Blood Medical Automated count Cell Count Center </content>5.29 KCUMM<content styleCode="Ital ics"> (4.4-11.0 KCUMM)</content > Erythrocytes 4.0-5.1 <content [facility] [#/volume] in styleCode="Bold [place] Blood by ">Red Blood Medical Automated count Cell Count Center </content>4.43 MCUMM<content styleCode="Ital ics"> (4.0-5.1 MCUMM)</content > Erythrocyte mean 80.0-100 <content [facility] corpuscular .0 styleCode="Bold Rosalina volume [Entitic ">Mean Medical volume] by Corpuscular Center Automated count Volume </content>72.7 FL<content styleCode="Ital ics"> (80.0-100.0 FL)</content> Hematocrit 36.0-46. Below low normal <content [facility] [Volume 0 styleCode="Bold Rosalina Fraction] of ">Hematocrit Medical Blood by </content>32.2 Center Automated count % L<content styleCode="Ital ics"> (36.0-46.0 %)</content> Erythrocyte mean 32.0-37. <content [facility] corpuscular 0 styleCode="Bold [place] hemoglobin ">Mean Corpus. Medical concentration Hgb Center [Mass/volume] by Concentration Automated count (MCHC) </content>32.6 G/DL<content styleCode="Ital ics"> (32.0-37.0 G/DL)</content> Hemoglobin 12.3-16. Below low normal <content [facility] [Mass/volume] in 0 styleCode="Bold [place] Blood ">Hemoglobin Medical </content>10.5 Center G/DL L<content styleCode="Ital ics"> (12.3-16.0 G/DL)</content> Erythrocyte mean 26.0-34. Below low normal <content [facility] corpuscular 0 styleCode="Bold [place] hemoglobin ">Mean Medical [Entitic mass] Corposcular Center by Automated Hemoglobin count </content>23.7 PG L<content styleCode="Ital ics"> (26.0-34.0 PG)</content> Erythrocyte 11.5-14. <content [facility] distribution 5 styleCode="Bold [place] width [Ratio] by ">Red Cell Medical Automated count Distribution Center Width </content>14.2 %<content styleCode="Ital ics"> (11.5-14.5 %)</content> Platelets 130-400 <content [facility] [#/volume] in styleCode="Bold [place] Blood by ">Platelet Medical Automated count Count Center </content>336 KCUMM<content styleCode="Ital ics"> (130-400 KCUMM)</content > UNK 0.0 <content [facility] styleCode="Bold [place] ">Nucleated Red Medical Blood Cell Center Count </content>0.00 KCUMM<content styleCode="Ital ics"> (0.0 KCUMM)</content > UNK 0 <content [facility] styleCode="Bold [place] ">Nucleated Red Medical Blood Cell Center </content>0.0 /100<content styleCode="Ital ics"> (0 /100)</content> Platelet mean 8.0-11.0 <content [facility] volume [Entitic styleCode="Bold Rosalina volume] in Blood ">Mean Platelet Medical by Automated Volume Center count </content>10.0 FL<content styleCode="Ital ics"> (8.0-11.0 FL)</content> ID Date Data Source Hormones 04/23/2018 11:33:[address] [facility] [place] Name Value Range Interpretation Description Data Sup porting Code Source(s) Document(s ) Thyrotropin 0.465-4. <content [facility] [Units/volume] 68 styleCode="Pantera Rosalina in Serum or d">Thyroid Medical Plasma by Stimulating Center Detection Hormone limit <= 0.05 </content>1.40 mIU/L MIU/L<content styleCode="Vielka lics"> (0.465-4.68 MIU/L)</conten t> ID Date Data Source Urinalysis.[id number] 12/31/2017 12:21:00 PM EDT [facility] 0 Name Value Range Interpretation Description Data Sup porting Code Source(s) Document(s ) Color of Urine YELLOW <content [facility] styleCode="Pantera Whitmans d">Color, Medical Urine Center </content>YELL OW <content styleCode="Vielka lics"> (YELLOW )</content> UNK NEGATIVE <content [facility] styleCode="Pantera [place] d">Urine Medical Bilirubin Center </content>NEGA TIVE <content styleCode="Vielka lics"> (NEGATIVE )</content> UNK CLEAR <content [facility] styleCode="Pantera Whitmans d">Urine Medical Clarity Center </content>SD R <content styleCode="Vielka lics"> (CLEAR )</content> Glucose NEGATIVE <content [facility] [Mass/volume] styleCode="Pantera Romano in Urine by d">Urine Medical Test strip Glucose Center </content>NEGA TIVE MG/DL<content styleCode="Vielka lics"> (NEGATIVE MG/DL)</conten t> Ketones NEGATIVE <content [facility] [Mass/volume] styleCode="Pantera Romano in Urine by d">Urine Medical Test strip Ketone Center </content>NEGA TIVE MG/DL<content styleCode="Vielka lics"> (NEGATIVE MG/DL)</conten t> Hemoglobin NEGATIVE <content [facility] [Presence] in styleCode="Pantera Romano Urine by Test d">Urine Blood Medical strip </content>NEGA Center TIVE <content styleCode="Vielka lics"> (NEGATIVE )</content> pH of Urine by 4.5-8.0 <content [facility] Test strip styleCode="Pantera Whitmans d">Urine pH Medical </content>6.5 Center NM<content styleCode="Vielka lics"> (4.5-8.0 NM)</content> Specific 1.015-1.02 Below low normal <content [facility] gravity of 5 styleCode="Pantera Romano Urine by Test d">Urine Medical strip Specific Center [place] </content><= 1.005 L<content styleCode="Vielka lics"> (1.015-1.025 )</content> Urobilinogen 0.2-1.0 <content [facility] [Units/volume] styleCode="Pantera Romano in Urine by d">Urine Medical Test strip Urobilinogen Center </content>0.2 MG/DL<content styleCode="Vielka lics"> (0.2-1.0 MG/DL)</conten t> Leukocyte NEGATIVE <content [facility] esterase styleCode="Pantera Romano [Presence] in d">Urine Medical Urine by Test Leukocyte Center strip </content>NEGA TIVE <content styleCode="Vielka lics"> (NEGATIVE )</content> Protein NEGATIVE <content [facility] [Mass/volume] styleCode="Pantera Romano in Urine by d">Urine Medical Test strip Protein Center </content>NEGA TIVE MG/DL<content styleCode="Vielka lics"> (NEGATIVE MG/DL)</conten t> Nitrite NEGATIVE <content [facility] [Presence] in styleCode="Pantera Romano Urine by Test d">Urine Medical strip Nitrite Center </content>NEGA TIVE <content styleCode="Vielka lics"> (NEGATIVE )</content> ID Date Data Source Liver 12/31/2017 12:21:[address] [facility] [place] Profile.[id number] Name Value Range Interpretation Description Data Sup porting Code Source(s) Document(s ) Alkaline 38-126 <content [facility] phosphatase styleCode="Bold"> Rosal[place] [Enzymatic Alkaline Medical activity/volume] Phosphatase (ALP) Cente r in Serum or Plasma </content>70 IU/L<content styleCode="Italic s"> (38-126 IU/L)</content> Aspartate 14-36 <content [facility] aminotransferase styleCode="Bold"> Jj hs [Enzymatic Aspartate Medical activity/volume] Aminotransferase Center in Serum or Plasma (AST) </content>30 IU/L<content styleCode="Italic s"> (14-36 IU/L)</content> Alanine 7-30 <content [facility] aminotransferase styleCode="Bold"> Jj hs [Enzymatic Alanine Medical activity/volume] Aminotransferase Center in Serum or Plasma (ALT) </content>19 IU/L<content styleCode="Italic s"> (7-30 IU/L)</content> Bilirubin.total 0.2-1.3 <content [facility] [Mass/volume] in styleCode="Bold"> Jj hs Serum or Plasma Bilirubin Total Medical </content>0.5 Center MG/DL<content styleCode="Italic s"> (0.2-1.3 MG/DL)</content> Albumin 3.5-5.0 <content [facility] [Mass/volume] in styleCode="Bold"> Jj hs Serum or Plasma Albumin Medical </content>4.2 Center G/DL<content styleCode="Italic s"> (3.5-5.0 G/DL)</content> ID Date Data Source LIPID.[id number] 12/31/2017 12:21:00 PM EDT [facility] Name Value Range Interpretation Description Data Sup porting Code Source(s) Document(s ) Triglyceride < 150 Above high normal <content [facility] [Mass/volume] in styleCode="Pantera Rosalina Serum or Plasma d">Triglycerid [facility] Center </content>172 MG/DL H<content styleCode="Vielka lics"> (< 150 MG/DL)</conten t> Cholesterol -<200 <content [facility] [Mass/volume] in styleCode="Pantera Rosalina Serum or Plasma d">Cholesterol Medical </content>154 Center MG/DL<content styleCode="Vielka lics"> (-<200 MG/DL)</conten t> UNK > 60 Below low normal <content [facility] styleCode="Pantera Rosalina d">HDL- Medical Cholesterol Center </content>59 MG/DL L<content styleCode="Vielka lics"> (> 60 MG/DL)</conten t> UNK < 100 <content [facility] styleCode="Pantera Rosalina d">LDL-Cholest Medical bridgette Center </content>61 MG/DL<content styleCode="Vielka lics"> (< 100 MG/DL)</conten t> ID Date Data Source Hormones.[id number] 12/31/2017 12:21:00 PM EDT [facility] Name Value Range Interpretation Description Data Sup porting Code Source(s) Document(s ) Thyroxine (T4) 0.78-2.1 <content [facility] free 9 styleCode="Pantera Rosalina [Mass/volume] d">T4 Free Medical in Serum or </content>0.97 Center Plasma NG/DL<content styleCode="Vielka lics"> (0.78-2.19 NG/DL)</conten t> Thyrotropin 0.465-4. <content [facility] [Units/volume] 68 styleCode="Pantera Rosalina in Serum or d">Thyroid Medical Plasma by [facility] Center Detection Hormone limit <= 0.05 </content>1.31 mIU/L MIU/L<content styleCode="Vielka lics"> (0.465-4.68 MIU/L)</conten t> ID Date Data Source HematologyRou.[id number] 12/31/2017 12:21:00 PM EDT [facility] 0400 Name Value Range Interpretation Description Data Sup porting Code Source(s) Document(s ) Leukocytes 4.4-11.0 <content [facility] [#/volume] in styleCode="Bold Rosalian Blood by ">White Blood Medical Automated count Cell Count Center </content>7.86 KCUMM<content styleCode="Ital ics"> (4.4-11.0 KCUMM)</content > Hemoglobin 12.3-16. Below low normal <content [facility] [Mass/volume] in 0 styleCode="Bold Rosal[place] Blood ">Hemoglobin Medical </content>11.2 Center G/DL L<content styleCode="Ital ics"> (12.3-16.0 G/DL)</content> Hematocrit 36.0-46. Below low normal <content [facility] [Volume 0 styleCode="Bold Rosalina Fraction] of ">Hematocrit Medical Blood by </content>33.7 Center Automated count % L<content styleCode="Ital ics"> (36.0-46.0 %)</content> Erythrocyte mean 80.0-100 <content [facility] corpuscular .0 styleCode="Bold Rosal[place] volume [Entitic ">Mean Medical volume] by Corpuscular Center Automated count Volume </content>76.4 FL<content styleCode="Ital ics"> (80.0-100.0 FL)</content> Erythrocyte mean 32.0-37. <content [facility] corpuscular 0 styleCode="Bold [place] hemoglobin ">Mean Corpus. Medical concentration Hgb Center [Mass/volume] by Concentration Automated count (MCHC) </content>33.2 G/DL<content styleCode="Ital ics"> (32.0-37.0 G/DL)</content> Erythrocytes 4.0-5.1 <content [facility] [#/volume] in styleCode="Bold [place] Blood by ">Red Blood Medical Automated count Cell Count Center </content>4.41 MCUMM<content styleCode="Ital ics"> (4.0-5.1 MCUMM)</content > Erythrocyte mean 26.0-34. Below low normal <content [facility] corpuscular 0 styleCode="Bold [place] hemoglobin ">Mean Medical [Entitic mass] Corposcular Center by Automated Hemoglobin count </content>25.4 PG L<content styleCode="Ital ics"> (26.0-34.0 PG)</content> Erythrocyte 11.5-14. Above high <content [facility] distribution 5 normal styleCode="Bold [place] width [Ratio] by ">Red Cell Medical Automated count Distribution Center Width </content>14.7 % H<content styleCode="Ital ics"> (11.5-14.5 %)</content> Platelet mean 8.0-11.0 <content [facility] volume [Entitic styleCode="Bold Rosalina volume] in Blood ">Mean Platelet Medical by Automated Volume Center count </content>10.1 FL<content styleCode="Ital ics"> (8.0-11.0 FL)</content> UNK 1.6-7.3 <content [facility] styleCode="Bold [place] ">Neutrophil Medical Count Center </content>4.28 KCUMM<content styleCode="Ital ics"> (1.6-7.3 KCUMM)</content > Platelets 130-400 <content [facility] [#/volume] in styleCode="Bold [place] Blood by ">Platelet Medical Automated count Count Center </content>349 KCUMM<content styleCode="Ital ics"> (130-400 KCUMM)</content > Neutrophils 36-66 <content [facility] [#/volume] in styleCode="Bold [place] Blood by ">Neutrophil Medical Automated count </content>54.5 Center %<content styleCode="Ital ics"> (36-66 %)</content> UNK 1.0-4.8 <content [facility] styleCode="Bold [place] ">Lymphocyte Medical Count Center </content>2.71 KCUMM<content styleCode="Ital ics"> (1.0-4.8 KCUMM)</content > Monocytes 3.0-10.0 <content [facility] [#/volume] in styleCode="Bold [place] Blood by ">Monocyte Medical Automated count </content>7.6 Center %<content styleCode="Ital ics"> (3.0-10.0 %)</content> UNK 0.2-0.9 <content [facility] styleCode="Bold [place] ">Monocyte Medical Count Center </content>0.60 KCUMM<content styleCode="Ital ics"> (0.2-0.9 KCUMM)</content > Eosinophils 0-5.0 <content [facility] [#/volume] in styleCode="Bold [place] Blood by ">Eosinophil Medical Automated count </content>2.7 Center %<content styleCode="Ital ics"> (0-5.0 %)</content> Lymphocytes 24.0-44. <content [facility] [#/volume] in 0 styleCode="Bold [place] Blood by ">Lymphocyte Medical Automated count </content>34.5 Center %<content styleCode="Ital ics"> (24.0-44.0 %)</content> Basophils 0.0-1.0 <content [facility] [#/volume] in styleCode="Bold [place] Blood by ">Basophil Medical Automated count </content>0.6 Center %<content styleCode="Ital ics"> (0.0-1.0 %)</content> UNK 0.0-0.3 <content [facility] styleCode="Bold [place] ">Basophil Medical Count Center </content>0.05 KCUMM<content styleCode="Ital ics"> (0.0-0.3 KCUMM)</content > UNK 0 <content [facility] styleCode="Bold [place] ">Nucleated Red Medical Blood Cell Center </content>0.0 /100<content styleCode="Ital ics"> (0 /100)</content> UNK 0.0-0.6 <content [facility] styleCode="Bold [place] ">Eosinophil Medical Count Center </content>0.21 KCUMM<content styleCode="Ital ics"> (0.0-0.6 KCUMM)</content > UNK 0.0 <content [facility] styleCode="Bold [place] ">Nucleated Red Medical Blood Cell Center Count </content>0.00 KCUMM<content styleCode="Ital ics"> (0.0 KCUMM)</content > UNK 0-0.1 <content [facility] styleCode="Bold [place] ">Immature Medical Granulocyte Center Count </content>0.01 KCUMM<content styleCode="Ital ics"> (0-0.1 KCUMM)</content > UNK < 1 <content [facility] styleCode="Bold [place] ">Immature Medical Granulocyte Center Ratio </content>0.1 %<content styleCode="Ital ics"> (< 1 %)</content> ID Date Data Source GFR(Creatinine).[id number] 12/31/2017 12:21:00 PM EDT [facility] 0-0400 Name Value Range Interpretation Code Description Data Jihan rce(s) Supporting Document(s ) UNK > 60 <content [facility] styleCode="Bold"> Medical Cent er EGFR </content>207 GFR<content styleCode="Italic s"> (> 60 GFR)</content> ID Date Data Source ChemistrySpecia.[id number] 12/31/2017 12:21:00 PM EDT [facility] 0-0400 Name Value Range Interpretation Description Data Sup porting Code Source(s) Document(s ) Cobalamin 239-931 <content [facility] (Vitamin B12) styleCode="Pantera Rosalina [Mass/volume] d">Vitamin B12 Medical in Serum or </content>462 Center Plasma PG/ML<content styleCode="Vielka lics"> (239-931 PG/ML)</conten t> ID Date Data Source CHRIS.[id number] 12/31/2017 12:21:00 PM EDT [facility] -0400 Name Value Range Interpretation Description Data Sup porting Code Source(s) Document(s ) Magnesium 1.6-2.3 <content [facility] [Mass/volume] styleCode="Pantera Rosalina in Serum or d">Magnesium Medical Plasma </content>1.8 Center MG/DL<content styleCode="Vielka lics"> (1.6-2.3 MG/DL)</conten t> Protein 6.3-8.2 <content [facility] [Mass/volume] styleCode="Pantera Rosalina in Serum or d">Total Medical Plasma Protein Center </content>7.7 G/DL<content styleCode="Vielka lics"> (6.3-8.2 G/DL)</content > UNK 2.3-3.5 <content [facility] styleCode="Pantera Rosalina d">Globulin Medical </content>3.5 Center G/DL<content styleCode="Vielka lics"> (2.3-3.5 G/DL)</content > UNK 4.2-5.8 <content [facility] styleCode="Pantera Rosalina d">Hemoglobin Medical A1C Center </content>5.8 %<content styleCode="Vielka lics"> (4.2-5.8 %)</content> UNK >= 1.0 <content [facility] styleCode="Pantera [place]alina d">AG Ratio Medical </content>1.2 Center NM<content styleCode="Vielka lics"> (>= 1.0 NM)</content> ID Date Data Source [facility].[id number] 12/31/2017 12:21:00 PM EDT [facility] Name Value Range Interpretation Description Data Sup porting Code Source(s) Document(s ) Chloride 98-107 <content [facility] [Moles/volume] in styleCode="Bold"> Dipesh phs Serum or Plasma Chloride Medical </content>105 Center MEQ/L<content styleCode="Italic s"> (98-107 MEQ/L)</content> Potassium 3.5-5.3 <content [facility] [Moles/volume] in styleCode="Bold"> Dipesh phs Serum or Plasma Potassium Medical </content>4.4 Center MEQ/L<content styleCode="Italic s"> (3.5-5.3 MEQ/L)</content> Sodium 137-145 <content [facility] [Moles/volume] in styleCode="Bold"> Dipesh phs Serum or Plasma Sodium Medical </content>137 Center MEQ/L<content styleCode="Italic s"> (137-145 MEQ/L)</content> Creatinine 0.5-1.3 Below low <content [facility] [Mass/volume] in normal styleCode="Bold"> Jj hs Serum or Plasma Creatinine Medical </content>0.4 Center MG/DL L<content styleCode="Italic s"> (0.5-1.3 MG/DL)</content> Glucose 74-106 <content [facility] [Mass/volume] in styleCode="Bold"> Jj hs Serum or Plasma Glucose Medical </content>94 Center MG/DL<content styleCode="Italic s"> (74-106 MG/DL)</content> Carbon dioxide, 22-30 <content [facility] total styleCode="Bold"> Rosalina [Moles/volume] in Carbon Dioxide Medical Serum or Plasma </content>23 Center MEQ/L<content styleCode="Italic s"> (22-30 MEQ/L)</content> Calcium 8.4-10. <content [facility] [Mass/volume] in 2 styleCode="Bold"> Jj hs Serum or Plasma Calcium Medical </content>9.4 Center MG/DL<content styleCode="Italic s"> (8.4-10.2 MG/DL)</content> UNK 7-17 <content [facility] styleCode="Bold"> [place] BUN </content>9 Medical MG/DL<content Center styleCode="Italic s"> (7-17 MG/DL)</content> Alanine 7-30 <content [facility] aminotransferase styleCode="Bold"> Jj hs [Enzymatic Alanine Medical activity/volume] Aminotransferase Center in Serum or Plasma (ALT) </content>19 IU/L<content styleCode="Italic s"> (7-30 IU/L)</content> UNK > 60 <content [facility] styleCode="Bold"> [place] EGFR Medical </content>207 Center GFR<content styleCode="Italic s"> (> 60 GFR)</content> Bilirubin.total 0.2-1.3 <content [facility] [Mass/volume] in styleCode="Bold"> Jj hs Serum or Plasma Bilirubin Total Medical </content>0.5 Center MG/DL<content styleCode="Italic s"> (0.2-1.3 MG/DL)</content> Aspartate 14-36 <content [facility] aminotransferase styleCode="Bold"> Jj hs [Enzymatic Aspartate Medical activity/volume] Aminotransferase Center in Serum or Plasma (AST) </content>30 IU/L<content styleCode="Italic s"> (14-36 IU/L)</content> Alkaline 38-126 <content [facility] phosphatase styleCode="Bold"> [place]al[place] [Enzymatic Alkaline Medical activity/volume] Phosphatase (ALP) Cente r in Serum or Plasma </content>70 IU/L<content styleCode="Italic s"> (38-126 IU/L)</content> Albumin 3.5-5.0 <content [facility] [Mass/volume] in styleCode="Bold"> Jj hs Serum or Plasma Albumin Medical </content>4.2 Center G/DL<content styleCode="Italic s"> (3.5-5.0 G/DL)</content> Procedure Social History Code Duration Value Status Description Data Source(s ) Caffeine Use 11/22/2019 coffee, 2 cups completed coffee, 2 cups NEXT GEN ([facility] Details 12:00:00 AM [facility]) 11/22/2019 Current completed Current NEXTGEN ([facility] 12:00:00 AM non-smoker non-smoker [facility]) Smoking 11/22/2019 Unknown if ever completed Unknown if ever NEXT GEN ([facility] 12:00:00 AM [facility] Center) Smoking 08/24/2019 Denies Ever completed Denies Ever [facility] 10:43:00 AM Smoked Smoked [facility] EDT Smoking 08/24/2019 Denies Ever completed Denies Ever [facility] 10:43:00 AM Smoked Smoked [facility] EDT Smoking 08/24/2019 Denies Ever completed Denies Ever [facility] 10:28:00 AM Smoked Smoked [facility] EDT Smoking 06/16/2019 Denies Ever completed Denies Ever [facility] 04:10:00 PM Smoked Smoked [facility] EST Smoking 06/16/2019 Denies Ever completed Denies Ever [facility] 03[facility]58:00 PM Smoked Smoked [facility] EST Smoking 03/26/2019 Denies Ever completed Denies Ever [facility] 10:42:00 AM Smoked Smoked [facility] EST Smoking 03/26/2019 Denies Ever completed Denies Ever [facility] [facility] 10:10:00 AM Smoked Smoked [facility] EST Smoking 03/26/2019 Denies Ever completed Denies Ever [facility] 10:08:00 AM Smoked Smoked [facility] EST Smoking 02/16/2019 Denies Ever completed Denies Ever [facility] 11:47:00 AM Smoked Smoked [facility] EDT Smoking 10/16/2018 Denies Ever completed Denies Ever [facility] 10:30:00 PM Smoked Smoked [facility] EDT Smoking 09/24/2018 Occasional completed Occasional Smoker [facility] 11:05:00 AM Smoker Medical Cent[facility] EDT Smoking 09/24/2018 Occasional completed Occasional Smoker [facility] 10:54:00 AM Smoker Medical Cent[facility] EDT Smoking 05/04/2018 Daily Smoker completed Daily Smoker [facility] 10:20:00 PM Medical Cent[facility] EST Smoking 05/04/2018 Daily Smoker completed Daily Smoker [facility] 10:18:00 PM Medical Cent[facility] r EST Smoking 05/04/2018 Daily Smoker completed Daily Smoker [facility] 08:53:00 PM Medical Cente r EST Smoking Unknown if ever completed Unknown if ever [facility] smoked [facility] Alcohol Use completed NEXTGEN ([facility]) Smoking Unknown if ever completed Unknown if ever eCW3 (Min smoked smoked [facility]) Vital Signs ID Date Data Source UNK Name Value Range Interpretation Code Description Data Source(s) Oxygen 97 % 97 % NEXTGEN saturation in ([facility]) Body mass index 29.45 kg/m2 Overweight 29.45 kg/m2 NEXTGEN (BMI) [Ratio] ([facility] [place]) Respiratory rate 18 /min 18 /min NEXTGEN ([facility] [place]) Body temperature 36.56 Dayna 36.56 Dayna NEXTGEN ([facility] [place]) Heart rate 77 /min 77 /[facility] [place] Diastolic blood 64 mm[Hg] 64 mm[Hg] NEXTGEN pressure ([facility] [place]) Systolic blood 101 mm[Hg] 101 mm[Hg] NEXTGEN pressure ([facility] [place]) Body weight 68.402 kg 68.402 kg [facility] [place]) Body height 152.40 cm 152.40 cm [facility] ([facility] [place]) Oxygen 96 % 96 % NEXTGEN saturation in ([facility]) Body mass index 28.94 kg/m2 Overweight 28.94 kg/m2 NEXTGEN (BMI) [Ratio] ([facility] [place]) Respiratory rate 18 /min 18 /min [facility] [place]) Body temperature 36.44 Dayna 36.44 Dayna [facility] ([facility] [place]) Heart rate 91 /min 91 /min [facility] ([facility] [place]) Diastolic blood 66 mm[Hg] 66 mm[Hg] NEXTGEN pressure ([facility] [place]) Systolic blood 102 mm[Hg] 102 mm[Hg] NEXTGEN pressure ([facility] [place]) Body weight 67.222 kg 67.222 kg [facility] ([facility] [place]) Body height 152.40 cm 152.40 cm [facility] ([facility] [place]) Body temperature 36.360980 Dayna [id number] Dayna [facility] Respiratory rate 20 /min 20 /min [facility] Oxygen 98 % 98 % [facility] saturation in [facility] by Pulse oximetry Heart rate 78 /min 78 /min [facility] [place] Diastolic blood 69 mm[Hg] 69 mm[Hg] [facility] Systolic blood 116 mm[Hg] 116 mm[Hg] [facility] Body weight 70.391467 kg 70.900198 kg [facility] Body temperature 36.282971 Dayna 36.558807 Dayna [facility] Respiratory rate 18 /min 18 /min [facility] Oxygen 97 % 97 % [facility] saturation in Medical Arterial blood Center by Pulse oximetry Heart rate 92 /min 92 /min [facility] [place] Body height 154.324181 cm 154.817210 cm [facility] Diastolic blood 50 mm[Hg] 50 mm[Hg] [facility] pressure Medical Center Systolic blood 125 mm[Hg] 125 mm[Hg] [facility] Body mass index 29.2 kg/m2 29.2 kg/m2 [facility] (BMI) [Ratio] Medical Center Oxygen 97 % 97 % NEXTGEN saturation in ([facility]) Body mass index 31.99 kg/m2 Overweight 31.99 kg/m2 [facility] [Ratio[facility] ([facility] [place]) Respiratory rate 18 /min 18 /min [facility] ([facility] [place]) Body temperature 36.72 Dayna 36.72 Dayna [facility] ([facility] [place]) Heart rate 85 /min 85 /min [facility] ([facility] [place]) Diastolic blood 67 mm[Hg] 67 mm[Hg] NEXTGEN pressure ([facility] [place]) Systolic blood 104 mm[Hg] 104 mm[Hg] [facility] ([facility] [place]) Body weight 74.298 kg 74.298 kg [facility] ([facility] [place]) Body height 152.40 cm 152.40 cm [facility] ([facility] [place]) Oxygen 96 % 96 % NEXTGEN saturation in ([facility]) Body mass index 33.01 kg/m2 Overweight 33.01 kg/m2 NEXTGEN (BMI) [Ratio] ([facility] [place]) Body temperature 36.50 Dayna 36.50 Dayna [facility] [place]) Heart rate 81 /min 81 /min [facility] ([facility] [place]) Diastolic blood 70 mm[Hg] 70 mm[Hg] NEXTGEN pressure ([facility] [place]) Systolic blood 112 mm[Hg] 112 mm[Hg] [facility] ([facility] [place]) Body weight 76.657 kg 76.657 kg [facility] ([facility] [place]) Body height 152.40 cm 152.40 cm [facility] ([facility] [place]) Body temperature 37.940785 Dayna 37.024126 Dayna [facility] Respiratory rate 18 /min 18 /min [facility] Heart rate 109 /min 109 /min [facility] [place] Diastolic blood 56 mm[Hg] 56 mm[Hg] [facility] Systolic blood 104 mm[Hg] 104 mm[Hg] [facility] Body weight 78.549421 kg 78.018302 kg [facility] Body temperature 37.114788 Dayna 37.161472 Dayna [facility] Respiratory rate 18 /min 18 /min [facility] Oxygen 20 % 20 % [facility] saturation in [facility] by Pulse oximetry Heart rate 123 /min 123 /min [facility] [place] Body height 157.261729 [address] [facility] Diastolic blood 75 mm[Hg] 75 mm[Hg] [facility] Systolic blood 129 mm[Hg] 129 mm[Hg] [facility] Body mass index 31.6 kg/m2 31.6 kg/m2 [facility] (BMI) [Ratio] Medical Center Oxygen 95 % 95 % [facility] saturation in ([facility]) Body mass index 34.18 kg/m2 Overweight 34.18 kg/m2 [facility] (BMI) [Ratio] ([facility] [place]) Respiratory rate 18 /min 18 /min [facility] ([facility] [place]) Body temperature 36.22 Dayna 36.22 Dayna [facility] ([facility] [place]) Heart rate 76 /min 76 /min [facility] ([facility] [place]) Diastolic blood 65 mm[Hg] 65 mm[Hg] [facility] ([facility] [place]) Systolic blood 103 mm[Hg] 103 mm[Hg] [facility] pressure ([facility] [place]) Body weight 79.379 kg 79.379 kg [facility] ([facility] [place]) Body height 152.40 cm 152.40 cm [facility] ([facility] [place]) Body temperature 36.356457 Dayna 36.911143 Dayna [facility] Respiratory rate 18 /min 18 /min [facility] Oxygen 99 % 99 % [facility] saturation in Medical Arterial blood Center by Pulse oximetry Heart rate 84 /min 84 /min [facility] [place] Diastolic blood 80 mm[Hg] 80 mm[Hg] [facility] Systolic blood 128 mm[Hg] 128 mm[Hg] [facility] Body weight 77.307696 kg 77.369297 kg [facility] Body temperature 37.970023 Dayna 37.794165 Dayna [facility] Respiratory rate 18 /min 18 /min [facility] Oxygen 99 % 99 % [facility] saturation in Medical Arterial blood Center by Pulse oximetry Heart rate 81 /min 81 /min [facility] [place] Body height 154.859555 cm 154.077031 [address] [facility] Diastolic blood 80 mm[Hg] 80 mm[Hg] [facility] Systolic blood 130 mm[Hg] 130 mm[Hg] [facility] Body mass index 32.1 kg/m2 32.1 kg/m2 [facility] (BMI) [Ratio] Medical Center Systolic blood 116 mm[Hg] 116 mm[Hg] [facility] Diastolic blood 78 mm[Hg] 78 mm[Hg] [facility] Heart rate 80 /min 80 /min [facility] [place] Oxygen 99 % 99 % [facility] saturation in Medical Arterial blood Center by Pulse oximetry Respiratory rate 18 /min 18 /min [facility] Body temperature 37.458105 Dayna 37.341980 Dayna [facility] Body mass index 33.2 kg/m2 33.2 kg/m2 [facility] (BMI) [Ratio] Medical Center Systolic blood 114 mm[Hg] 114 mm[Hg] [facility] Diastolic blood 80 mm[Hg] 80 mm[Hg] [facility] Body height 152.832212 cm 152.671086 [address] [facility] Heart rate 83 /min 83 /min [facility] [place] Oxygen 98 % 98 % [facility] saturation in Medical Arterial blood Center by Pulse oximetry Respiratory rate 20 /min 20 /min [facility] Body temperature 36.116877 Dayna 36.540874 Dayna [facility] Body weight 77.708951 kg 77.224290 kg [facility] Systolic blood 129 mm[Hg] 129 mm[Hg] [facility] Diastolic blood 62 mm[Hg] 62 mm[Hg] [facility] Heart rate 84 /min 84 /min [facility] [place] Oxygen 99 % 99 % [facility] saturation in Medical Arterial blood Center by Pulse oximetry Respiratory rate 16 /min 16 /min [facility] Body temperature 36.585872 Dayna 36.272898 Dayna [facility] Systolic blood 119 mm[Hg] 119 mm[Hg] [facility] Diastolic blood 67 mm[Hg] 67 mm[Hg] [facility] Heart rate 92 /min 92 /min [facility] [place] Oxygen 96 % 96 % [facility] saturation in Medical Arterial blood Center by Pulse oximetry Respiratory rate 16 /min 16 /min [facility] Body temperature 37.793429 Dayna 37.286224 Dayna [facility] Systolic blood 97 mm[Hg] 97 mm[Hg] [facility] Diastolic blood 61 mm[Hg] 61 mm[Hg] [facility] Heart rate 98 /min 98 /min [facility] [place] Oxygen 99 % 99 % [facility] saturation in Medical Arterial blood Center by Pulse oximetry Respiratory rate 18 /min 18 /min [facility] Body temperature 36.880798 Dayna 36.774579 Dayna [facility] Body mass index 29.2 kg/m2 29.2 kg/m2 [facility] (BMI) [Ratio] Medical Center Systolic blood 112 mm[Hg] 112 mm[Hg] [facility] Diastolic blood 60 mm[Hg] 60 mm[Hg] [facility] Body height 160.318590 cm 160.768194 cm [facility] Heart rate 106 /min 106 /min [facility] [place] Oxygen 99 % 99 % [facility] saturation in Medical Arterial blood Center by Pulse oximetry Respiratory rate 18 /min 18 /min [facility] Body temperature 37.256153 Dayna 37.007265 Dayna [facility] Body weight 75.713755 kg 75.848550 kg [facility] Body weight 77.026180 kg 77.574829 kg [facility] Body temperature 36.225513 Dayna 36.599526 Dayna [facility] Respiratory rate 17 /min 17 /min [facility] Oxygen 98 % 98 % [facility] saturation in Medical Arterial blood Center by Pulse oximetry Heart rate 95 /min 95 /min [facility] [place] Body height 172.546246 cm 172.112094 cm [facility] Diastolic blood 80 mm[Hg] 80 mm[Hg] [facility] Systolic blood 135 mm[Hg] 135 mm[Hg] [facility] Body mass index 25.8 kg/m2 25.8 kg/m2 [facility] (BMI) [Ratio] Medical Center Diastolic blood 61 mm[Hg] 61 mm[Hg] eCW3 ([facility]) Systolic blood 100 mm[Hg] 100 mm[Hg] eCW3 ([facility]) Body temperature 98.8 [degF] 98.8 [degF] eCW3 ( [facility]) Heart rate 20 /min 20 /min eCW3 ([facility]) Body mass index 33.12 kg/m2 33.12 kg/m2 eCW3 ([facility] (BMI) [Ratio] [facility]) Body weight 171 [lb_av] 171 [lb_av] eCW3 ([facility]) Body height 60.25 [in_i] 60.25 [in_i] eCW3 ([facility]) Body height 152.40 cm 152.40 cm [facility] ([facility] [place]) Body weight 72.575 kg 72.575 kg [facility] ([facility] [place]) Systolic blood 102 mm[Hg] 102 mm[Hg] [facility] [place]) Diastolic blood 68 mm[Hg] 68 mm[Hg] [facility] ([facility] [place]) Heart rate 80 /min 80 /min [facility] ([facility] [place]) Body temperature 36.44 Dayna 36.44 Dayna [facility] ([facility] [place]) Body mass index 31.25 kg/m2 Overweight 31.25 kg/m2 [facility] (BMI) [Ratio] ([facility] [place]) Oxygen 100 % 100 % NEXTGEN saturation in ([facility]) Systolic blood 119 mm[Hg] 119 mm[Hg] [facility] Diastolic blood 61 mm[Hg] 61 mm[Hg] [facility] Heart rate 93 /min 93 /min [facility] [place] Oxygen 98 % 98 % [facility] saturation in [facility] by Pulse oximetry Respiratory rate 20 /min 20 /min [facility] Body temperature 36.390110 Dayna [id number] Dayna [facility] Body height 152.40 cm 152.40 cm [facility] ([facility] [place]) Body weight 74.389 kg 74.389 kg [facility] ([facility] [place]) Systolic blood 104 mm[Hg] 104 mm[Hg] NEXTGEN pressure ([facility] [place]) Diastolic blood 70 mm[Hg] 70 mm[Hg] NEXTGEN pressure ([facility] [place]) Heart rate 99 /min 99 /min [facility] ([facility] [place]) Body temperature 37.06 Dayna 37.06 Dayna [facility] ([facility] [place]) Body mass index 32.03 kg/m2 Overweight 32.03 kg/m2 [facility] (BMI) [Ratio] ([facility] [place]) Oxygen 100 % 100 % NEXTGEN saturation in ([facility]) Body height 152.40 cm 152.40 cm [facility] ([facility] [place]) Body weight 71.668 kg 71.668 kg [facility] ([facility] [place]) Systolic blood 112 mm[Hg] 112 mm[Hg] NEXTGEN pressure ([facility] [place]) Diastolic blood 65 mm[Hg] 65 mm[Hg] NEXTGEN pressure ([facility] [place]) Heart rate 98 /min 98 /min [facility] ([facility] [place]) Body temperature 36.67 Dayna 36.67 Dayna [facility] [place]) Body mass index 30.86 kg/m2 Overweight 30.86 kg/m2 [facility] (BMI[facility] [Ratio] ([facility] [place]) Oxygen 98 % 98 % NEXTGEN saturation in ([facility] Arterial blood [facility] by [facility] o[facility]) Body height 152.40 cm 152.40 cm [facility] [place]) Body weight 71.214 kg 71.214 kg NEXTGEN ([facility] [place]) Systolic blood 112 mm[Hg] 112 mm[Hg] NEXTGEN pressure ([facility] [place]) Diastolic blood 68 mm[Hg] 68 mm[Hg] NEXTGEN pressure ([facility] [place]) Heart rate 128 /min 128 /min NEXTGEN ([facility] [place]) Body temperature 37.00 Dayna 37.00 Dayna [facility] [place]) Body mass index 30.66 kg/m2 Overweight 30.66 kg/m2 [facility]EXT[facility] (BMI) [Ratio] ([facility] [place]) Oxygen 98 % 98 % NEXTGEN saturation in ([facility] blood [facility] by [facility]) Diastolic blood 74 mmHg 74 mmHg [facility] Systolic blood 111 mmHg 111 mmHg [facility] Respiratory rate 18 bpm 18 bpm [facility] Heart rate 109 bpm 109 bpm [facility] Body temperature 98.0 Fahrenheit 98.0 Fahrenh t [facility] Diastolic blood 84 mmHg 84 mmHg [facility] Systolic blood 120 mmHg 120 mmHg [facility] Respiratory rate 18 bpm 18 bpm [facility] Heart rate 106 bpm 106 bpm [facility] Diastolic blood 67 mmHg 67 mmHg [facility] Systolic blood 124 mmHg 124 mmHg [facility] Respiratory rate 18 bpm 18 bpm [facility] Heart rate 103 bpm 103 bpm [facility] Body temperature 97.9 Fahrenheit 97.9 Fahrenhei t [facility] Diastolic blood 70 mmHg 70 mmHg [facility] Systolic blood 84 mmHg 84 mmHg [facility] Respiratory rate 18 bpm 18 bpm [facility] Heart rate 103 bpm 103 bpm [facility] Diastolic blood 65 mmHg 65 mmHg [facility] Systolic blood 92 mmHg 92 mmHg [facility] Respiratory rate 18 bpm 18 bpm [facility] Heart rate 98 bpm 98 bpm [facility] Body temperature 98.1 Fahrenheit 98.1 Fahrenhei t [facility] Diastolic blood 75 mmHg 75 mmHg [facility] Systolic blood 115 mmHg 115 mmHg [facility] Respiratory rate 18 bpm 18 bpm [facility] Heart rate 117 bpm 117 bpm [facility] Body weight 157 lbs 157 lbs [facility] Diastolic blood 65 mmHg 65 mmHg [facility] Systolic blood 119 mmHg 119 mmHg [facility] Respiratory rate 18 bpm 18 bpm [facility] Heart rate 103 bpm 103 bpm [facility] Body temperature 97.8 Fahrenheit 97.8 Fahrenhei t [facility] Diastolic blood 68 mmHg 68 mmHg [facility] Systolic blood 127 mmHg 127 mmHg [facility] Respiratory rate 18 bpm 18 bpm [facility] Heart rate 100 bpm 100 bpm [facility] Diastolic blood 72 mmHg 72 mmHg [facility] Systolic blood 128 mmHg 128 mmHg [facility] Respiratory rate 18 bpm 18 bpm [facility] Heart rate 93 bpm 93 bpm [facility] Body temperature 96.2 Fahrenheit 96.2 Fahrenhei t [facility] Diastolic blood 73 mmHg 73 mmHg [facility] Systolic blood 131 mmHg 131 mmHg [facility] Heart rate 89 bpm 89 bpm [facility] Diastolic blood 73 mmHg 73 mmHg [facility] Systolic blood 110 mmHg 110 mmHg [facility] Respiratory rate 18 bpm 18 bpm [facility] Heart rate 89 bpm 89 bpm [facility] Body temperature 97.3 Fahrenheit 97.3 Fahrenhei t [facility] Diastolic blood 70 mmHg 70 mmHg [facility] Systolic blood 130 mmHg 130 mmHg [facility] Respiratory rate 18 bpm 18 bpm [facility] Heart rate 105 bpm 105 bpm [facility] Diastolic blood 67 mmHg 67 mmHg [facility] Systolic blood 119 mmHg 119 mmHg [facility] Respiratory rate 18 bpm 18 bpm [facility] Heart rate 91 bpm 91 bpm [facility] Body temperature 98.5 Fahrenheit 98.5 Fahrenhei t [facility] Diastolic blood 76 mmHg 76 mmHg [facility] Systolic blood 130 mmHg 130 mmHg [facility] Respiratory rate 18 bpm 18 bpm [facility] Heart rate 101 bpm 101 bpm [facility] Diastolic blood 37 mmHg 37 mmHg [facility] Systolic blood 120 mmHg 120 mmHg [facility] Respiratory rate 18 bpm 18 bpm [facility] Heart rate 98 bpm 98 bpm [facility] Body temperature 97.3 Fahrenheit 97.3 Fahrenhei t [facility] Diastolic blood 71 mmHg 71 mmHg [facility] Systolic blood 111 mmHg 111 mmHg [facility] Respiratory rate 18 bpm 18 bpm [facility] Heart rate 103 bpm 103 bpm [facility] Diastolic blood 73 mmHg 73 mmHg [facility] Systolic blood 116 mmHg 116 mmHg [facility] Respiratory rate 18 bpm 18 bpm [facility] Heart rate 95 bpm 95 bpm [facility] Body temperature 97.5 Fahrenheit 97.5 Fahrenhei t [facility] Diastolic blood 74 mmHg 74 mmHg [facility] Systolic blood 147 mmHg 147 mmHg [facility] Respiratory rate 18 bpm 18 bpm [facility] Heart rate 103 bpm 103 bpm [facility] Diastolic blood 77 mmHg 77 mmHg [facility] Systolic blood 134 mmHg 134 mmHg [facility] Respiratory rate 18 bpm 18 bpm [facility] Heart rate 100 bpm 100 bpm [facility] Body temperature 97.6 Fahrenheit 97.6 Fahrenhei t [facility] Heart rate 111 bpm 111 bpm [facility] Diastolic blood 74 mmHg 74 mmHg [facility] Systolic blood 122 mmHg 122 mmHg [facility] Respiratory rate 18 bpm 18 bpm [facility] Body weight 156 lbs 156 lbs [facility] Diastolic blood 64 mmHg 64 mmHg [facility] Systolic blood 136 mmHg 136 mmHg [facility] Respiratory rate 18 bpm 18 bpm [facility] Heart rate 105 bpm 105 bpm [facility] Body temperature 97.6 Fahrenheit 97.6 Fahrenhei t [facility] Diastolic blood 70 mmHg 70 mmHg [facility] Systolic blood 111 mmHg 111 mmHg [facility] Respiratory rate 18 bpm 18 bpm [facility] Heart rate 114 bpm 114 bpm [facility] Body temperature 97.6 Fahrenheit 97.6 Fahrenhei t [facility] Diastolic blood 73 mmHg 73 mmHg [facility] Systolic blood 121 mmHg 121 mmHg [facility] Respiratory rate 18 bpm 18 bpm [facility] Heart rate 111 bpm 111 bpm [facility] Body temperature 97.6 Fahrenheit 97.6 Fahrenhei t [facility] Diastolic blood 72 mmHg 72 mmHg [facility] Systolic blood 126 mmHg 126 mmHg [facility] Respiratory rate 17 bpm 17 bpm [facility] Heart rate 106 bpm 106 bpm [facility] Body temperature 97.1 Fahrenheit 97.1 Fahrenhei t [facility] Diastolic blood 59 mmHg 59 mmHg [facility] Systolic blood 120 mmHg 120 mmHg [facility] Respiratory rate 18 bpm 18 bpm [facility] Heart rate 96 bpm 96 bpm [facility] Body temperature 97.1 Fahrenheit 97.1 Fahrenhei t [facility] Body temperature 97.6 Fahrenheit 97.6 Fahrenhei t [facility] Diastolic blood 70 mmHg 70 mmHg [facility] Systolic blood 124 mmHg 124 mmHg [facility] Respiratory rate 18 bpm 18 bpm [facility] Heart rate 112 bpm 112 bpm [facility] Diastolic blood 71 mmHg 71 mmHg [facility] Systolic blood 140 mmHg 140 mmHg [facility] Respiratory rate 18 bpm 18 bpm [facility] Heart rate 111 bpm 111 bpm [facility] Body temperature 96.5 Fahrenheit 96.5 Fahrenhei t [facility] Diastolic blood 81 mmHg 81 mmHg [facility] Systolic blood 142 mmHg 142 mmHg [facility] Heart rate 125 bpm 125 bpm [facility] Diastolic blood 77 mmHg 77 mmHg [facility] Systolic blood 114 mmHg 114 mmHg [facility] Respiratory rate 18 bpm 18 bpm [facility] Heart rate 121 bpm 121 bpm [facility] Diastolic blood 97 mmHg 97 mmHg [facility] Systolic blood 111 mmHg 111 mmHg [facility] Respiratory rate 18 bpm 18 bpm [facility] Heart rate 112 bpm 112 bpm [facility] Body temperature 96.5 Fahrenheit 96.5 Fahrenhei t [facility] Diastolic blood 75 mmHg 75 mmHg [facility] Systolic blood 116 mmHg 116 mmHg [facility] Respiratory rate 18 bpm 18 bpm [facility] Heart rate 111 bpm 111 bpm [facility] Body weight 158 lbs 158 lbs [facility] Diastolic blood 76 mmHg 76 mmHg [facility] Systolic blood 129 mmHg 129 mmHg [facility] Respiratory rate 18 bpm 18 bpm [facility] Heart rate 103 bpm 103 bpm [facility] Body temperature 98.1 Fahrenheit 98.1 Fahrenhei t [facility] Diastolic blood 73 mmHg 73 mmHg [facility] Systolic blood 128 mmHg 128 mmHg [facility] Respiratory rate 18 bpm 18 bpm [facility] Heart rate 123 bpm 123 bpm [facility] Diastolic blood 66 mmHg 66 mmHg [facility] Systolic blood 119 mmHg 119 mmHg [facility] Respiratory rate 18 bpm 18 bpm [facility] Heart rate 111 bpm 111 bpm [facility] Body temperature 97.9 Fahrenheit 97.9 Fahrenhei t [facility] Diastolic blood 72 mmHg 72 mmHg [facility] Systolic blood 135 mmHg 135 mmHg [facility] Respiratory rate 18 bpm 18 bpm [facility] Heart rate 125 bpm 125 bpm [facility] Diastolic blood 73 mmHg 73 mmHg [facility] Systolic blood 140 mmHg 140 mmHg [facility] Respiratory rate 18 bpm 18 bpm [facility] Heart rate 114 bpm 114 bpm [facility] Body temperature 95.9 Fahrenheit 95.9 Fahrenhei t [facility] Diastolic blood 70 mmHg 70 mmHg [facility] Systolic blood 127 mmHg 127 mmHg [facility] Respiratory rate 18 bpm 18 bpm [facility] Heart rate 114 bpm 114 bpm [facility] Diastolic blood 73 mmHg 73 mmHg [facility] Systolic blood 119 mmHg 119 mmHg [facility] Respiratory rate 18 bpm 18 bpm [facility] Heart rate 106 bpm 106 bpm [facility] Diastolic blood 76 mmHg 76 mmHg [facility] Systolic blood 142 mmHg 142 mmHg [facility] Respiratory rate 18 bpm 18 bpm [facility] Heart rate 114 bpm 114 bpm [facility] Body temperature 98.3 Fahrenheit 98.3 Fahrenhei t [facility] Diastolic blood 73 mmHg 73 mmHg [facility] Systolic blood 127 mmHg 127 mmHg [facility] Respiratory rate 18 bpm 18 bpm [facility] Heart rate 125 bpm 125 bpm [facility] Body temperature 97.3 Fahrenheit 97.3 Fahrenhei t [facility] Diastolic blood 71 mmHg 71 mmHg [facility] Systolic blood 133 mmHg 133 mmHg [facility] Respiratory rate 18 bpm 18 bpm [facility] Heart rate 82 bpm 82 bpm [facility] Body temperature 97.3 Fahrenheit 97.3 Fahrenhei t [facility] Diastolic blood 88 mmHg 88 mmHg [facility] Systolic blood 132 mmHg 132 mmHg [facility] Respiratory rate 18 bpm 18 bpm [facility] Heart rate 117 bpm 117 bpm [facility] Diastolic blood 68 mmHg 68 mmHg [facility] Systolic blood 123 mmHg 123 mmHg [facility] Respiratory rate 18 bpm 18 bpm [facility] Heart rate 112 bpm 112 bpm [facility] Body temperature 98.2 Fahrenheit 98.2 Fahrenhei t [facility] Diastolic blood 86 mmHg 86 mmHg [facility] Systolic blood 133 mmHg 133 mmHg [facility] Respiratory rate 18 bpm 18 bpm [facility] Heart rate 125 bpm 125 bpm [facility] Body temperature 97.9 Fahrenheit 97.9 Fahrenhei t [facility] Diastolic blood 73 mmHg 73 mmHg [facility] Systolic blood 132 mmHg 132 mmHg [facility] Respiratory rate 18 bpm 18 bpm [facility] Heart rate 111 bpm 111 bpm [facility] Body temperature 97.9 Fahrenheit 97.9 Fahrenhei t [facility] Diastolic blood 85 mmHg 85 mmHg [facility] Systolic blood 136 mmHg 136 mmHg [facility] Respiratory rate 18 bpm 18 bpm [facility] Heart rate 129 bpm 129 bpm [facility] Body temperature 98.7 Fahrenheit 98.7 Fahrenhei t [facility] Diastolic blood 73 mmHg 73 mmHg [facility] Systolic blood 128 mmHg 128 mmHg [facility] Respiratory rate 18 bpm 18 bpm [facility] Heart rate 108 bpm 108 bpm [facility] Body temperature 98.7 Fahrenheit 98.7 Fahrenhei t [facility] Diastolic blood 81 mmHg 81 mmHg [facility] Systolic blood 141 mmHg 141 mmHg [facility] Heart rate 129 bpm 129 bpm [facility] Diastolic blood 78 mmHg 78 mmHg [facility] Systolic blood 148 mmHg 148 mmHg [facility] Respiratory rate 18 bpm 18 bpm [facility] Heart rate 117 bpm 117 bpm [facility] Body temperature 96.2 Fahrenheit 96.2 Fahrenhei t [facility] Diastolic blood 70 mmHg 70 mmHg [facility] Systolic blood 115 mmHg 115 mmHg [facility] Respiratory rate 18 bpm 18 bpm [facility] Heart rate 109 bpm 109 bpm [facility] Body temperature 97.4 Fahrenheit 97.4 Fahrenhei t [facility] Diastolic blood 67 mmHg 67 mmHg [facility] Systolic blood 122 mmHg 122 mmHg [facility] Respiratory rate 18 bpm 18 bpm [facility] Heart rate 102 bpm 102 bpm [facility] Body temperature 97.4 Fahrenheit 97.4 Fahrenhei t [facility] Diastolic blood 76 mmHg 76 mmHg [facility] Systolic blood 127 mmHg 127 mmHg [facility] Respiratory rate 18 bpm 18 bpm [facility] Heart rate 112 bpm 112 bpm [facility] Diastolic blood 61 mmHg 61 mmHg [facility] Systolic blood 115 mmHg 115 mmHg [facility] Respiratory rate 18 bpm 18 bpm [facility] Heart rate 100 bpm 100 bpm [facility] Body temperature 98.7 Fahrenheit 98.7 Fahrenhei t [facility] Diastolic blood 89 mmHg 89 mmHg [facility] Systolic blood 127 mmHg 127 mmHg [facility] Respiratory rate 18 bpm 18 bpm [facility] Heart rate 115 bpm 115 bpm [facility] Diastolic blood 89 mmHg 89 mmHg [facility] Systolic blood 127 mmHg 127 mmHg [facility] Respiratory rate 18 bpm 18 bpm [facility] Heart rate 102 bpm 102 bpm [facility] Body temperature 98.1 Fahrenheit 98.1 Fahrenhei t [facility] Diastolic blood 73 mmHg 73 mmHg [facility] Systolic blood 119 mmHg 119 mmHg [facility] Respiratory rate 18 bpm 18 bpm [facility] Heart rate 129 bpm 129 bpm [facility] Diastolic blood 70 mmHg 70 mmHg [facility] Systolic blood 111 mmHg 111 mmHg [facility] Respiratory rate 18 bpm 18 bpm [facility] Heart rate 112 bpm 112 bpm [facility] Body temperature 96.7 Fahrenheit 96.7 Fahrenhei t [facility] Diastolic blood 70 mmHg 70 mmHg [facility] Systolic blood 116 mmHg 116 mmHg [facility] Respiratory rate 18 bpm 18 bpm [facility] Heart rate 105 bpm 105 bpm [facility] Diastolic blood 68 mmHg 68 mmHg [facility] Systolic blood 116 mmHg 116 mmHg [facility] Respiratory rate 18 bpm 18 bpm [facility] Heart rate 102 bpm 102 bpm [facility] Body temperature 98.3 Fahrenheit 98.3 Fahrenhei t [facility] Diastolic blood 69 mmHg 69 mmHg [facility] Systolic blood 117 mmHg 117 mmHg [facility] Respiratory rate 18 bpm 18 bpm [facility] Heart rate 97 bpm 97 bpm [facility] Diastolic blood 64 mmHg 64 mmHg [facility] Systolic blood 111 mmHg 111 mmHg [facility] Respiratory rate 18 bpm 18 bpm [facility] Heart rate 96 bpm 96 bpm [facility] Body temperature 97.8 Fahrenheit 97.8 Fahrenhei t [facility] Diastolic blood 68 mmHg 68 mmHg [facility] Systolic blood 121 mmHg 121 mmHg [facility] Respiratory rate 18 bpm 18 bpm [facility] Heart rate 123 bpm 123 bpm [facility] Diastolic blood 74 mmHg 74 mmHg [facility] Systolic blood 139 mmHg 139 mmHg [facility] Respiratory rate 18 bpm 18 bpm [facility] Heart rate 114 bpm 114 bpm [facility] Body temperature 99.3 Fahrenheit 99.3 Fahrenhei t [facility] Diastolic blood 76 mmHg 76 mmHg [facility] Systolic blood 114 mmHg 114 mmHg [facility] Heart rate 103 bpm 103 bpm [facility] Body temperature 98.3 Fahrenheit 98.3 Fahrenhei t [facility] Diastolic blood 67 mmHg 67 mmHg [facility] Systolic blood 103 mmHg 103 mmHg [facility] Respiratory rate 18 bpm 18 bpm [facility] Heart rate 91 bpm 91 bpm [facility] Diastolic blood 65 mmHg 65 mmHg [facility] Systolic blood 121 mmHg 121 mmHg [facility] Respiratory rate 18 bpm 18 bpm [facility] Heart rate 112 bpm 112 bpm [facility] Diastolic blood 68 mmHg 68 mmHg [facility] Systolic blood 109 mmHg 109 mmHg [facility] Respiratory rate 18 bpm 18 bpm [facility] Heart rate 94 bpm 94 bpm [facility] Body temperature 98.5 Fahrenheit 98.5 Fahrenhei t [facility] Body temperature 97.9 Fahrenheit 97.9 Fahrenhei t [facility] Diastolic blood 69 mmHg 69 mmHg [facility] Systolic blood 110 mmHg 110 mmHg [facility] Respiratory rate 18 bpm 18 bpm [facility] Heart rate 101 bpm 101 bpm [facility] Diastolic blood 70 mmHg 70 mmHg [facility] Systolic blood 100 mmHg 100 mmHg [facility] Respiratory rate 18 bpm 18 bpm [facility] Heart rate 86 bpm 86 bpm [facility] Diastolic blood 69 mmHg 69 mmHg [facility] Systolic blood 97 mmHg 97 mmHg [facility] Respiratory rate 18 bpm 18 bpm [facility] Heart rate 75 bpm 75 bpm [facility] Body temperature 97.4 Fahrenheit 97.4 Fahrenhei t [facility] Body [facility] 97.9 [facility] 85 mmHg [facility] Systolic blood 118 mmHg 118 mmHg [facility] Respiratory rate 18 bpm 18 bpm [facility] Heart rate 96 bpm 96 bpm [facility] Diastolic blood 68 mmHg 68 mmHg [facility] Systolic blood 112 mmHg 112 mmHg [facility] Respiratory rate 18 bpm 18 bpm [facility] Heart rate 101 bpm 101 bpm [facility] Body temperature 98.6 [facility]heit [facility] Body mass index 27.1 kg/m^2 27.1 kg/m^2 [facility] (BMI) [Ratio] [facility] Body weight 148 lbs 148 lbs [facility] Body height 62 in 62 in [facility] Patient Treatment Plan of Care Planned Activity Planned Date Details Description Data Source (s) Metronidazole 500 MG Oral 11/22/2019 NE XTGEN ([facility] Tablet 12:00:00 AM [facility]) nabumetone 500 MG Oral 07/06/2019 NEXTG EN ([facility] Tablet 12:00:00 AM [facility]) Cyclobenzaprine 06/25/2019 NEXTGEN ([facility] hydrochloride 5 MG Oral 12:00:00 AM [facility] Tablet [place]) 8 HR Acetaminophen 650 MG 06/25/2019 NE XTGEN ([facility] Extended Release Oral 12:00:00 AM [facility] Medical Tablet [Mapap] [place]) Ergocalciferol 03108 UNT 06/25/2019 NEX TGEN ([facility] Oral Capsule 12:00:00 AM [facility]) ferrous sulfate 325 MG 06/25/2019 NEXTG EN ([facility] Delayed Release Oral Tablet 12:00:[address] [facility]) 200 ACTUAT Albuterol 0.09 05/13/2019 NE XTGEN ([facility] MG/ACTUAT Metered Dose 12:00:00 AM [facility] Medical Inhaler [ProAir] [place]) Melatonin 5 MG Oral Capsule 10/12/2018 NEXTGEN ([facility] 12:00:00 AM [facility]) benztropine mesylate 1 MG 10/12/2018 NE XTGEN ([facility] Oral Tablet 12:00:00 AM [facility]) aripiprazole 15 MG Oral 10/12/2018 NEXT GEN ([facility] Tablet [Abilify] 12:00:00 AM [facility]) Clozapine 100 MG Oral 09/25/2018 NEXTGE N ([facility] Tablet [Clozaril] 12:00:00 AM [facility]) Docusate Sodium 100 MG Oral 05/11/2018 NEXTGEN ([facility] Capsule [Colace] 12:00:[address] [facility]) ferrous sulfate 325 MG Oral 05/11/2018 NEXTGEN ([facility] Tablet 12:00:00 AM [facility]) 120 ACTUAT Fluticasone 03/24/2018 NEXTG EN ([facility] propionate 0.115 MG/ACTUAT 12:00:00 AM [facility] / salmeterol 0.021 [place]) MG/ACTUAT Metered Dose Inhaler [Advair] Melatonin 5 MG Oral Capsule 03/24/2018 NEXTGEN ([facility] 12:00:00 AM [facility]) Nicotine 2 MG Chewing Gum 03/10/2018 NE XTGEN ([facility] 12:00:00 AM [facility]) 24 HR Nicotine 0.583 MG/HR 03/10/2018 N EXTGEN ([facility] Transdermal Patch [Nicoderm 12:00:00 AM [facility] C-Q] [place]) Azithromycin 250 MG Oral 03/10/2018 NEX TGEN ([facility] Tablet 12:00:00 AM [facility]) 200 ACTUAT Albuterol 0.09 02/23/2018 NE XTGEN ([facility] MG/ACTUAT Metered Dose 12:00:00 AM [facility] Inhaler [ProAir] [place]) Glycopyrrolate 2 MG Oral 01/27/2018 NEX TGEN ([facility] Tablet 12:00:00 AM [facility]) Magnesium Oxide 400 MG Oral 12/31/2017 NEXTGEN ([facility] Capsule 12:00:00 AM [facility]) multivitamin tablet 12/31/2017 NEXTGEN ([facility] 12:00:00 AM [facility]) Clozapine 100 MG Oral 12/31/2017 NEXTGE N ([facility] Tablet 12:00:00 AM [facility]) 200 ACTUAT Albuterol 0.09 [facility] [place] MG/ACTUAT Metered Dose Medic al [place] Inhaler [Proventil] Amoxicillin 500 MG Oral [facility] misoprostol Tablet [facility] clozapine [facility] Prednisone 20 MG Oral [facility] 200 ACTUAT Albuterol 0.09 [facility] [place] MG/ACTUAT Metered Dose Medic [facility] Inhaler clozapine 100 mg [facility] TabletDirections: [address] [facility] oral daily every morning Ciprofloxacin 500 MG Oral [facility]
[2020-01-16] MEDS ORDERED: LACTATED RINGERS SOLUTION 1,000 ML IV STA (09:24)
[2020-01-16] MEDS ORDERED: METOCLOPRAMIDE HCL INJECTION 10 MG/2 ML VIAL IVPB ONE (09:24)
[2020-01-16] MEDS ORDERED: METOCLOPRAMIDE HCL INJECTION 10 MG/2 ML VIAL ONE (09:35)
--- NOTE | 2020-01-16 09:45 | PDOC ---
History of Present Illness - General History Source: Patient Exam Limitations: Clinical Condition - History of Present Illness Initial Comments: 01/16/20 09:40 Patient G7, P4 LMP October 18 at 11 weeks presented with complaint of sudden onset of lightheadedness and weakness while in the mall shopping yesterday. Patient report symptoms is improved today but came in to make sure her baby is okay. Patient reports she is being treated for UTI by her TRACK MAINTAINER with 2 antibiotics which patient does not recall the name of antibiotics that she is taking. Patient reports some nausea but denies vomiting. Denies abdominal pain, vaginal bleeding, chest pain, shortness of breath, headache, blurry vision or change in vision. Patient has not taken anything for symptoms. Patient reports seeing her OB 3 days ago where she was started on antibiotics for the UTI Is this a multiple visit Asthma Patient?: No Timing/Duration: 24 hours <Ander Combs - Last Filed: 01/16/20 11:31> <Laury Briseno - Last Filed: 01/16/20 11:59> - General Chief Complaint: Pain Stated Complaint: 11 WEEKS ,DIZZINESS Time Seen by Provider: 01/16/20 09:19 Past History - Medical History Anemia: No Asthma: Yes Cancer: No Cardiac Disorders: No CVA: No COPD: No CHF: No Dementia: No Diabetes: No GI Disorders: No Disorders: No HTN: No Hypercholesterolemia: No Kidney Stones: No Liver Disease: No Psychiatric Problems: Yes (, bipolar) Seizures: No Thyroid Disease: No - Surgical History Abdominal Surgery: Yes - Reproductive History Is Patient Now?: No (#): 4 Para: 3 PID: No Therapeutic (s) & number: Yes Spontaneous : 1 - Immunization History Immunization Up to Date: No - Psycho-Social/Smoking History Smoking Status: No Smoking History: Never smoked Have you smoked in the past 12 months: No Number of Cigarettes Smoked Daily: 1 'Breaking Loose' booklet given: 12/16/17 - Substance Abuse Hx (Audit-C & DAST Scrn) How often the patient has a drink containing alcohol: Never Score: In Men: 4 or > Positive; In Women: 3 or > Positive: 0 Screen Result (Pos requires Nsg. Audit-10AR): Negative In the last yr the pt used illegal drug/Rx for NonMed reason: No Score: Yes response is considered Positive: 0 Screen Result (Positive result requires Nsg. DAST-10): Negative <Ander Combs - Last Filed: 01/16/20 11:31> <Laury Briseno - Last Filed: 01/16/20 11:59> - Medical History Allergies/Adverse Reactions: Allergies Allergy/AdvReac Type Severity Reaction Status Date / Time haloperidol [From Haldol] AdvReac Verified 01/16/20 09:03 "anesthesia" Allergy Uncoded 10/24/19 14:20 Home Medications: Ambulatory Orders Pnv No.121/Iron/Folic Acid [ Multivitamin Tablet] 1 each PO DAILY 01/16/20 Review of Systems - Review of Systems Able to Perform ROS?: Yes Is the patient limited Mongolian proficient: No Constitutional: Yes: Weakness (improved). No: Chills, Fever, Malaise HEENTM: No: Symptoms Reported, See HPI, Eye Pain, Blurred Vision, Tearing, Recent change in vision, Double Vision, Cataracts, Ear Pain, Ocular Prothesis, Ear Discharge, Nose Pain, Nose Congestion, Tinnitus, Nose Bleeding, Hearing Loss, Throat Pain, Throat Swelling, Mouth Pain, Dental Problems, Difficulty Swallowing, Mouth Swelling, Other Respiratory: No: Symptoms reported, See HPI, Cough, Orthopnea, Shortness of Breath, SOB with Exertion, SOB at Rest, Stridor, Wheezing, Productive cough, Hemoptysis, Other Cardiac (ROS): Yes: Symptoms Reported, See HPI, Lightheadedness (resolved). No: Chest Pain, Edema, Irregular Heart Rate, Palpitations, Syncope, Chest Tightness, Other ABD/GI: Yes: Symptoms Reported, See HPI, Nausea. No: Abd. Pain w/ defecation, Blood Streaked Bowels, Constipated, Diarrhea, Difficulty Swallowing, Vomiting, Abdominal cramping : Yes: Symptoms Reported, See HPI, Burning, Dysuria, Frequency. No: Discharge, Pain, Urgency Musculoskeletal: No: Symptoms Reported, See HPI, Back Pain Neurological: No: Symptoms reported, Headache, Dizziness All Other Systems: Reviewed and Negative <Ander Combs - Last Filed: 01/16/20 11:31> *Physical Exam - Vital Signs Last Vital Signs Temp Pulse Resp BP Pulse Ox 97.3 F L 79 16 121/59 L 100 01/16/20 09:04 01/16/20 09:04 01/16/20 09:04 01/16/20 09:04 01/16/20 09:04 - Physical Exam 01/16/20 09:44 GENERAL: Well developed, well nourished. Awake and alert. No acute distress. HEENT: Normocephalic, atraumatic. PERRLA, EOMI. No conjunctival pallor. Sclera are non-icteric. Moist mucous membranes. Oropharynx is clear. NECK: Supple. Full ROM. CARDIOVASCULAR: Regular rate and rhythm. No murmurs, rubs, or gallops. Distal pulses are 2+ and symmetric. PULMONARY: No evidence of respiratory distress. Lungs clear to auscultation bilaterally. No wheezing, rales or rhonchi. ABDOMINAL: Soft. Non-tender. Non-distended. No rebound or guarding. No organomegaly. Normoactive bowel sounds. MUSCULOSKELETAL Normal range of motion at all joints. EXTREMITIES: No cyanosis. No clubbing. No edema. No calf tenderness. SKIN: Warm and dry. Normal capillary refill. No rashes. No jaundice. NEUROLOGICAL: Alert, awake, appropriate. Gait is normal without ataxia. Cranial nerves II through X grossly intact PSYCHIATRIC: Cooperative. Good eye contact. Appropriate mood General Appearance: Yes: Nourished, Appropriately Dressed. No: Apparent Distress <LaurynAnder - Last Filed: 01/16/20 11:31> - Vital Signs Last Vital Signs Temp Pulse Resp BP Pulse Ox 98.2 F 79 18 108/73 98 01/16/20 11:14 01/16/20 11:14 01/16/20 11:14 01/16/20 11:14 01/16/20 11:14 <Laury Briseno - Last Filed: 01/16/20 11:59> ED Treatment Course - LABORATORY CBC & Chemistry Diagram: 01/16/20 09:30 01/16/20 09:30 <Ander Combs - Last Filed: 01/16/20 11:31> - LABORATORY CBC & Chemistry Diagram: 01/16/20 09:30 01/16/20 09:30 - ADDITIONAL ORDERS Additional order review: Laboratory Results 01/16/20 01/16/20 01/16/20 09:30 09:30 09:30 Sodium 137 Potassium 3.8 Chloride 105 Carbon Dioxide 25 Anion Gap 7 L BUN 5.8 L Creatinine 0.6 Est GFR (CKD-EPI)AfAm 144.78 Est GFR (CKD-EPI)NonAf 124.92 Random Glucose 95 Calcium 8.7 Total Bilirubin 0.7 AST 22 ALT 17 Alkaline Phosphatase 67 Total Protein 7.5 Albumin 3.1 L Beta HCG, Quant 41229.9 Urine Color Urine Appearance Urine pH Ur Specific [place] Urine Protein Urine Glucose (UA) Urine Ketones Urine Blood Urine Nitrite Urine Bilirubin Urine Urobilinogen Ur Leukocyte Esterase Blood Type O POSITIVE 01/16/20 09:30 Sodium Potassium Chloride Carbon Dioxide Anion Gap BUN Creatinine Est GFR (CKD-EPI)AfAm Est GFR (CKD-EPI)NonAf Random Glucose Calcium Total Bilirubin AST ALT Alkaline Phosphatase Total Protein Albumin Beta HCG, Quant Urine Color Yellow Urine Appearance Clear Urine pH 6.5 Ur Specific [place] 1.023 Urine Protein Negative Urine Glucose (UA) Negative Urine Ketones 2+ H Urine Blood Negative Urine Nitrite Negative Urine Bilirubin Negative Urine Urobilinogen 0.2 Ur Leukocyte Esterase Negative Blood Type 01/16/20 09:30 RBC 4.50 MCV 69.2 L MCHC 33.4 RDW 19.0 H MPV 7.5 Neutrophils % 65.4 Lymphocytes % 25.8 Monocytes % 8.2 Eosinophils % 0.3 D Basophils % 0.3 - Medications Given in the ED: ED Medications Discontinued Medications Generic Name Dose Route Start Last Admin Trade Name Freq PRN Reason Stop Dose Admin Lactated Ringer's 1,000 mls @ 1,000 mls/hr 01/16/20 09:24 01/16/20 09:43 Lactated Ringers Solution IV 01/16/20 10:23 1,000 mls/hr ONCE STA Administration Metoclopramide HCl 10 mg 01/16/20 09:24 01/16/20 09:43 Reglan Injection - IVPB 01/16/20 09:25 10 mg ONCE ONE Administration <Laury Briseno - Last Filed: 01/16/20 11:59> Medical Decision Making - Medical Decision Making 01/16/20 09:43 Patient G7, P4 LMP October 18 at 11 weeks presented with complaint of sudden onset of lightheadedness and weakness while in the mall shopping yesterday. Patient report symptoms is improved today but came in to make sure her baby is okay. Patient reports she is being treated for UTI by her TR[employer] MAINTAINER with 2 antibiotics which patient does not recall the name of antibiotics that she is taking. Patient reports some nausea but denies vomiting. Denies abdominal pain, vaginal bleeding, chest pain, shortness of breath, headache, blurry vision or change in vision. Patient has not taken anything for symptoms. Patient reports seeing her OB 3 days ago where she was started on antibiotics for the UTI Clinical exam unremarkable with patient in no acute distress. Patient walking with normal gait without support. No abdominal tenderness. Lungs clear to auscultation bilateral and normal cardio exam. Pupil equal reflective to light bilateral. Normal neuro exam. Patient symptoms likely caused by dehydration versus UTI. CBC, CMP lab ordered. UA and urine culture lab ordered. IV hydration with lactated 1 L and Reglan 10 mg IV ordered for hydration and nausea. Pelvic ultrasound ordered to evaluate . Treat based on lab and imaging results 01/16/20 11:00 CBC shows mild anemia. Chemistry lab normal. Beta-hCG is 36,000+. Pelvic ultrasound shows live IUP with crown-rump length of 5.87 cm consistent with 12.4 weeks gestational age with heart rate of 156 bpm. Patient asymptomatic now and stable for discharge with advised to continue increase fluid intake and iron supplement which patient is taking with vitamins to help improve anemia. Patient advised to follow-up with OB to discuss anemia in <Ander Combs - Last Filed: 01/16/20 11:31> - Medical Decision Making I reviewed the case with the mid-level practitioner and agree with the mid-level practitioner's assessment, diagnosis and disposition. <Laury Briseno - Last Filed: 01/16/20 11:59> Discharge - Discharge Information Problems reviewed: Yes - Admission No <Ander Combs - Last Filed: 01/16/20 11:31> <Laury Briseno - Last Filed: 01/16/20 11:59> - Discharge Information Clinical Impression/Diagnosis: Lightheaded, 13 weeks gestation of , Malaise and fatigue Condition: Improved Disposition: HOME - Follow up/Referral Referrals: Leeanne Romo, [facility] [Primary Care Provider] - - Patient Discharge Instructions Patient Printed Discharge Instructions: Common Discomforts and Bodily Changes During Additional Instructions: Your blood work shows mild anemia which you might need iron supplement to help with anemia. Discussed with your UNDER TRIMMER by anemia as the vitamins might have iron in the . Your is normal and shows live . Follow-up with your UNDER TRIMMER. Increase fluid intake - Post Discharge Activity
[2020-01-16 10:00] LABS: BASO % 0.3 % (0-2.0); EOS % 0.3 % (0-4.5); HEMATOCRIT 31.1 % (32.4-45.2); HEMOGLOBIN 10.4 GM/dL (10.7-15.3); LYMPH % 25.8 % (8-40); MCH 23.1 pg (25.7-33.7); MCHC 33.4 g/dl (32.0-36.0); MEAN CELL VOLUME 69.2 fl (80-96); MEAN PLT VOLUME 7.5 fl (7.5-11.1); MONO % 8.2 % (3.8-10.2); NEUT % 65.4 % (42.8-82.8); PLATELET COUNT 304 K/MM3 (134-434); WHITE BLOOD COUNT 4.5 K/mm3 (4.0-10.0)
[2020-01-16 10:13] LABS: ALBUMIN 3.1 g/dl (3.4-5.0); BILIRUBIN,TOTAL 0.7 mg/dL (0.2-1); BLOOD UREA NITROGEN 5.8 mg/dL (7-18); CALCIUM 8.7 mg/dL (8.5-10.1); CREATININE 0.6 mg/dL (0.55-1.3); POTASSIUM 3.8 mmol/L (3.5-5.1); TOT PROT 7.5 g/dl (6.4-8.2)
[2020-01-16 11:15] VITALS: BP 108/73; TEMP 98.2
[2020-01-16 11:45] LABS: PH,URINE 6.5 (5.0-8.0); URINE APPEARANCE CLEAR; URINE BILIRUBIN NEGATIVE (NEGATIVE); URINE COLOR YELLOW; URINE GLUCOSE (UA) NEGATIVE (NEGATIVE); URINE KETONE 2+ (NEGATIVE); URINE LEUK ESTERASE NEGATIVE (NEGATIVE); URINE NITRITE NEGATIVE (NEGATIVE); URINE PROTEIN NEGATIVE (NEGATIVE); URINE UROBILINOGEN 0.2 mg/dL (0.2-1.0)
== END 2020-01-16 11:15 | disposition home or self-care (01) ==
LOC: JER 08:58
PROC: 3E033GC Introduction of Other Therapeutic Substance into Peripheral Vein, Percutaneous Approach (ICD-10-PCS; principal; 2020-01-16)
DX: R42 Dizziness and giddiness (principal); R53.83 Other fatigue; Z3A.11 11 weeks gestation of pregnancy
CPT/HCPCS: 36415; 76801-TC; 80053; 81003; 84702; 85025; 86850; 86900; 86901; 87077; 87086; 87186; 99284-25

== ENCOUNTER 2020-08-19 08:44 | Emergency (ER) | payer OTHER ==
[2020-08-19 08:52] VITALS: BP 137/83; PULSE 93; TEMP 98; BMI 34.0
[2020-08-19 11:22] LABS: URINE APPEARANCE CLEAR; URINE BILIRUBIN NEGATIVE (NEGATIVE); URINE COLOR YELLOW; URINE GLUCOSE (UA) NEGATIVE (NEGATIVE); URINE KETONE NEGATIVE (NEGATIVE); URINE LEUK ESTERASE NEGATIVE (NEGATIVE); URINE NITRITE NEGATIVE (NEGATIVE); URINE PROTEIN NEGATIVE (NEGATIVE); URINE UROBILINOGEN 0.2 mg/dL (0.2-1.0)
== END 2020-08-19 11:00 | disposition home or self-care (01) ==
LOC: JER 08:44
DX: L75.0 Bromhidrosis (principal); Z71.1 Person with feared health complaint in whom no diagnosis is made
CPT/HCPCS: 81003; 87086; 99284-25

== ENCOUNTER 2020-11-21 17:21 | Emergency (ER) | payer OTHER ==
[2020-11-21 17:38] VITALS: TEMP 98.1; BMI 37.8
[2020-11-21 21:40] LABS: BASO % 0.4 % (0-2.0); HEMATOCRIT 33.7 % (32.4-45.2); HEMOGLOBIN 11.1 GM/dL (10.7-15.3); LYMPH % 42.4 % (8-40); MCH 25.5 pg (25.7-33.7); MEAN CELL VOLUME 77.3 fl (80-96); MEAN PLT VOLUME 7.2 fl (7.5-11.1); MONO % 7.9 % (3.8-10.2); NEUT % 48.3 % (42.8-82.8); PLATELET COUNT 332 10^3/uL (134-434); RBC 4.36 M/mm3 (3.60-5.2); RDW 15.7 % (11.6-15.6); WHITE BLOOD COUNT 6.7 K/mm3 (4.0-10.0)
[2020-11-21 21:45] LABS: PH,URINE 5.5 (5.0-8.0); URINE APPEARANCE CLEAR; URINE BILIRUBIN NEGATIVE (NEGATIVE); URINE COLOR YELLOW; URINE GLUCOSE (UA) NEGATIVE (NEGATIVE); URINE KETONE NEGATIVE (NEGATIVE); URINE LEUK ESTERASE NEGATIVE (NEGATIVE); URINE NITRITE NEGATIVE (NEGATIVE); URINE PROTEIN NEGATIVE (NEGATIVE); URINE UROBILINOGEN 0.2 mg/dL (0.2-1.0)
[2020-11-21 21:47] LABS: HCG,QUALITATIVE URINE Negative
[2020-11-21 22:13] LABS: CALCIUM 9.5 mg/dL (8.5-10.1)
[2020-11-21 22:14] LABS: BLOOD UREA NITROGEN 10.5 mg/dL (7-18)
[2020-11-21 22:17] LABS: CREATININE 0.6 mg/dL (0.55-1.3)
[2020-11-21 22:18] LABS: TOT PROT 7.7 g/dl (6.4-8.2)
[2020-11-21 22:50] VITALS: BP 100/62; PULSE 67
== END 2020-11-21 22:56 | disposition home or self-care (01) ==
LOC: JER 17:21
DX: G89.18 Other acute postprocedural pain (principal)
CPT/HCPCS: 36415; 76830-TC; 80053; 81003; 84703; 85025; 87077; 87086; 99284-25

== ENCOUNTER 2021-09-29 12:22 | Emergency (ER) | payer OTHER ==
[2021-09-29 12:50] VITALS: BP 126/84; PULSE 86; TEMP 98.3; BMI 33.2
[2021-09-29 14:54] LABS: HCG,QUALITATIVE URINE Negative
[2021-09-29 14:55] LABS: EPI CELLS >36 /uL (0-25.1); HYALINE CASTS 7 /uL (0-3.1); PH,URINE 5.5 (5.0-8.0); URINE APPEARANCE TURBID; URINE BACTERIA 643 /uL (0-1359); URINE BILIRUBIN NEGATIVE (NEGATIVE); URINE COLOR YELLOW; URINE GLUCOSE (UA) NEGATIVE (NEGATIVE); URINE KETONE NEGATIVE (NEGATIVE); URINE LEUK ESTERASE 3+ (NEGATIVE); URINE NITRITE NEGATIVE (NEGATIVE); URINE PROTEIN 2+ (NEGATIVE); URINE RBC 2703 /uL (0-23.9); URINE UROBILINOGEN 0.2 mg/dL (0.2-1.0); URINE WBC 19837 /uL (0-25.8)
[2021-09-29] MEDS ORDERED: PHENAZOPYRIDINE HCL 100 MG TABLET (FP) PO ONE (15:05)
[2021-09-29] MEDS ORDERED: CEPHALEXIN MONOHYDRATE 500 MG CAPSULE (UD) PO ONE (15:05)
[2021-09-29] MEDS ORDERED: CEPHALEXIN MONOHYDRATE 500 MG CAPSULE (UD) ONE (15:07)
[2021-09-29] MEDS ORDERED: PHENAZOPYRIDINE HCL 100 MG TABLET (FP) ONE (15:08)
== END 2021-09-29 15:51 | disposition home or self-care (01) ==
LOC: JERFT 12:22
DX: N39.0 Urinary tract infection, site not specified (principal)
CPT/HCPCS: 36415; 81003; 84703; 87086; 87186; 87491; 87591; 99283-25

== ENCOUNTER 2021-12-28 17:40 | Emergency (ER) | payer OTHER ==
[2021-12-28 17:58] VITALS: BP 126/81; PULSE 100; RESP 18; TEMP 98.2; BMI 34.6
[2021-12-28 19:48] LABS: BASO % 0.5 % (0-2.0); EOS % 0.3 % (0-4.5); HEMATOCRIT 30.8 % (32.4-45.2); LYMPH % 26.3 % (8-40); MCH 22.4 pg (25.7-33.7); MCHC 32.4 g/dl (32.0-36.0); MEAN CELL VOLUME 69.3 fl (80-96); MEAN PLT VOLUME 7.4 fl (7.5-11.1); MONO % 8.3 % (3.8-10.2); NEUT % 64.6 % (42.8-82.8); PLATELET COUNT 396 10^3/uL (134-434); RBC 4.44 M/mm3 (3.60-5.2); RDW 16.7 % (11.6-15.6); WHITE BLOOD COUNT 7.9 K/mm3 (4.0-10.0)
[2021-12-28 19:53] LABS: EPI CELLS >36 /uL (0-25.1); HYALINE CASTS 1 /uL (0-3.1); URINE APPEARANCE CLEAR; URINE BACTERIA 1619 /uL (0-1359); URINE BILIRUBIN NEGATIVE (NEGATIVE); URINE COLOR YELLOW; URINE GLUCOSE (UA) NEGATIVE (NEGATIVE); URINE KETONE TRACE (NEGATIVE); URINE LEUK ESTERASE NEGATIVE (NEGATIVE); URINE NITRITE NEGATIVE (NEGATIVE); URINE PROTEIN TRACE (NEGATIVE); URINE RBC 12 /uL (0-23.9); URINE UROBILINOGEN 0.2 mg/dL (0.2-1.0); URINE WBC 50 /uL (0-25.8)
[2021-12-28 19:55] LABS: INR 1.1 (0.83-1.09); PROTHROMBIN TIME (PATIENT) 12.7 SEC (9.7-13.0)
[2021-12-28 20:04] LABS: CHLORIDE 105 mmol/L (98-107); SODIUM 139 mmol/L (136-145)
[2021-12-28 20:06] LABS: CALCIUM 9.4 mg/dL (8.5-10.1)
[2021-12-28 20:07] LABS: ALBUMIN 3.9 g/dl (3.4-5.0); ANION GAP 7 MMOL/L (8-16); BLOOD UREA NITROGEN 10.6 mg/dL (7-18); CO2 26 mmol/L (21-32); GLUCOSE,RANDOM 83 mg/dL (74-106); LIPASE 122 U/L (73-393)
[2021-12-28 20:10] LABS: CREATININE 0.7 mg/dL (0.55-1.3); SGOT/AST 25 U/L (15-37); SGPT/ALT 23 U/L (13-61)
[2021-12-28 20:11] LABS: BILIRUBIN,TOTAL 0.4 mg/dL (0.2-1)
[2021-12-28 20:12] LABS: TOT PROT 8.2 g/dl (6.4-8.2)
[2021-12-28 20:13] LABS: ALK PHOS 77 U/L (45-117)
[2021-12-28] MEDS ORDERED: cefTRIAXone SODIUM 1 GM VIAL ONE (20:35)
== END 2021-12-28 21:28 | disposition home or self-care (01) ==
LOC: JER 17:40
DX: R55 Syncope and collapse (principal); Z20.2 Contact with and (suspected) exposure to infections with a predominantly sexual mode of transmission
CPT/HCPCS: 36415; 76817-TC; 80053; 81003; 83690; 83735; 84443; 84484; 84702; 85025; 85610; 86850; 86900; 86901; 87086; 87491; 87591; 93005; 93010; 99285-25

== ENCOUNTER 2022-04-01 00:48 | Emergency (ER) | payer OTHER ==
[2022-04-01 00:52] VITALS: BP 113/59; PULSE 102; RESP 18; TEMP 100.5; BMI 33.2
[2022-04-01] MEDS ORDERED: ACETAMINOPHEN 325 MG TABLET (FP) PO ONE (01:50)
[2022-04-01] MEDS ORDERED: ACETAMINOPHEN 325 MG TABLET (FP) ONE (01:59)
== END 2022-04-01 02:31 | disposition home or self-care (01) ==
LOC: JER 00:48
DX: R51.9 Headache, unspecified (principal); R05.9 Cough, unspecified; R09.81 Nasal congestion
CPT/HCPCS: 0241U-QW; 84703; 99283-25

== ENCOUNTER 2023-03-24 15:12 | Emergency (ER) | payer OTHER ==
[2023-03-24 15:19] VITALS: BP 113/62; PULSE 97; RESP 16; TEMP 98.5; BMI 32.2
[2023-03-24 17:00] LABS: EPI CELLS >36 /uL (0-25.1); HYALINE CASTS 2 /uL (0-3.1); PH,URINE 5.5 (5.0-8.0); URINE APPEARANCE CLOUDY; URINE BACTERIA 87 /uL (0-1359); URINE BILIRUBIN NEGATIVE (NEGATIVE); URINE COLOR YELLOW; URINE GLUCOSE (UA) NEGATIVE (NEGATIVE); URINE KETONE TRACE (NEGATIVE); URINE LEUK ESTERASE NEGATIVE (NEGATIVE); URINE NITRITE NEGATIVE (NEGATIVE); URINE PROTEIN 1+ (NEGATIVE); URINE UROBILINOGEN 0.2 mg/dL (0.2-1.0); URINE WBC 10 /uL (0-25.8)
[2023-03-24] MEDS ORDERED: PHENAZOPYRIDINE HCL 100 MG TABLET (FP) PO ONE (17:26)
[2023-03-24] MEDS ORDERED: NITROFURANTOIN MONOHYD/M-CRYST 100 MG CAPSULE PO ONE (17:26)
[2023-03-24] MEDS ORDERED: PHENAZOPYRIDINE HCL 100 MG TABLET (FP) ONE (17:40)
[2023-03-24] MEDS ORDERED: NITROFURANTOIN MACROCRYSTAL 50 MG CAPSULE (FP) ONE (17:40)
[2023-03-24 22:09] LABS: URINE CRYSTALS PRESENT /hpf; URINE RBC 47.6 /uL (0-23.9)
== END 2023-03-24 17:44 | disposition home or self-care (01) ==
LOC: JER 15:12 → JERFT 15:12
DX: R30.0 Dysuria (principal); R10.30 Lower abdominal pain, unspecified; R10.2 Pelvic and perineal pain; N30.90 Cystitis, unspecified without hematuria
CPT/HCPCS: 36415; 81003; 84703; 87086; 87491; 87591; 99283-25